=== PATIENT | female | born 1960 | race Caucasian/White ===

== ENCOUNTER 2019-03-14 16:10 | Outpatient (RCR) | payer MEDICARE, MEDICAID, SELFPAY | END 2019-03-26 00:01 | LOC: LAB 16:10 | PROVIDERS: Family Provider Family Medicine; Visit Provider Internal Medicine Nephrology | DX: N18.3 Chronic kidney disease, stage 3 (moderate) (principal); N39.0 Urinary tract infection, site not specified; N13.30 Unspecified hydronephrosis; R19.7 Diarrhea, unspecified | CPT/HCPCS: 81001; 82570; 87086 ×2; 87106; 87493 ==

== ENCOUNTER 2019-04-16 13:55 | Outpatient (RCR) | payer MEDICARE, MEDICAID, SELFPAY ==
[2019-04-16 12:01] LABS: Blood Urine 3+ (Negative); Glucose Urine UA Norm (Normal); Ketones Urine Negative (Negative); Protein Urine 1+ (Negative); Urine Appearance Cloudy (CLEAR); Urine Color Yellow (Yellow); pH Urine 5 (5-7)
[2019-04-16 12:02] LABS: Add Urine Microscopic? YES; Bilirubin Urine Neg (NEGATIVE); Leukocyte Esterase Urine 1+ (Negative); Nitrate Urine Negative (Negative); Urobilinogen Urine Norm (Negative); WBC Urine TOO NUMEROUS TO CNT /hpf (0-5)
[2019-04-16 12:03] LABS: Add Urine Culture? Yes; Bacteria Urine 3+; RBC Urine 25-40 /hpf (0-2); Squamous Epithelial Cell Urine 0-4 (0-5)
--- NOTE | 2019-04-16 14:21 | US_ITS ---
WS: [id number] ULTRASOUND RENAL TECHNIQUE: Ultrasound examination of both kidneys. CLINICAL INFORMATION: Hydronephrosis COMPARISON: None. FINDINGS: RIGHT: Moderate hydronephrosis Echogenicity: Normal. Hydronephrosis: Moderate Perinephric fluid: None. Right kidney measures: 10.2 cm x 4.9 cm x 5.2 cm. LEFT: Moderate hydronephrosis Echogenicity: Normal. Hydronephrosis: Moderate Perinephric fluid: None. Left kidney measures: 12.3 cm x 5.6 cm x 5.6 cm. Normal visualized aorta. Morales catheter US/US renal BI* [id number] IMPRESSION: 1. Moderate bilateral hydronephrosis with bilateral proximal hydroureter. 2. Morales catheter.
== END 2019-04-26 23:59 | disposition home or self-care (01) ==
LOC: RAD 13:55
PROVIDERS: Family Provider Family Medicine; PCP Family Medicine; Visit Provider Urology
DX: N13.30 Unspecified hydronephrosis (principal); N30.20 Other chronic cystitis without hematuria; N32.89 Other specified disorders of bladder
CPT/HCPCS: 76770; 81003; 87077; 87086; 87186

== ENCOUNTER 2019-05-31 12:02 | Observation (INO) | payer MEDICARE, MEDICAID, SELFPAY ==
[2019-05-31 12:03] VITALS: BMI 25.0
--- NOTE | 2019-05-31 12:04 | ED_ITS ---
Entered by Karina Wood, acting as scribe for Tova Parsons DO HPI - General Adult General: Chief complaint: Urogenital-Female Stated complaint: UTI RESISTANT TO ANTIBIOTIC Time Seen by Provider: 05/31/19 12:14 Source: patient and RN notes reviewed Mode of arrival: EMS Limitations: physical limitation (bialteral AKA) History of Present Illness: HPI narrative: 58 yo female presents to ED with complaints of a bladder infection. She states she has burning with urination and bladder spasms with nausea. She said she has been running an elevated tempera ture. She denies back pain. She has been having these symptoms for 2 weeks and has received antibiotic treatment with no relief of her symptoms. MD complaint: burning with urination Onset (ago): week(s) (2) Location: abdomen (suprapubic) Radiation: non-radiation Severity: moderate Quality: burning Pain Consistency: constant Relieving factors: none Exacerbating factors: other (urinating) Associated symptoms: Reports nausea; Deny chest pain, dyspnea, headache(s) or rash Treatments prior to arrival: other (antibiotics) Review of Systems General: Reports: 10 or more systems reviewed and unremarkable except in HPI and below Const: Denies: chills or fatigue ENMT: Denies: throat pain Card: Denies: chest pain or swelling of feet/ankles Resp: Denies: shortness of breath or productive cough GI: Reports: nausea Musc: Denies: back pain or extremity swelling Skin/Breast: Denies: rash Neuro: Denies: headache, numbness in extremities or weakness in extremities [facility] ED PFSH: Medical History Bilateral hydronephrosis Bladder wall thickening Chronic cystitis Surgical History Status post bilateral above knee amputation Family History Family/Other Psychiatric illness CAD (coronary artery disease) Diabetes Cancer Stroke Social History Smoking and tobacco status: current every day smoker Alcohol intake: never Marital status: Current occupational status: disabled Physical Exam Const: COMMON NORMALS: no apparent distress and oriented x3 GENERAL APPEARANCE: cooperative; not in distress HENMT: COMMON NORMALS: normocephalic HEAD & SCALP: normal to inspection and normocephalic MOUTH: oral and palatal mucosa normal and lip normal THROAT: posterior oropharynx normal and tonsils normal Neck/C-Spine: COMMON NORMALS: full ROM, no lymphadenopathy, supple and no meningeal signs GENERAL: Yes normal visual inspection and Yes trachea midline Chest: COMMONS NORMALS: inspection of chest normal Resp: COMMON NORMALS: normal respiratory effort and clear to auscultation bilaterally EFFORT & INSPECTION: Yes able to speak in complete sentences and No respiratory distress AUSCULTATION: clear to auscultation bilaterally, no rales, no rhonchi and no wheezes Cardio: COMMON NORMALS: regular rate, regular rhythm, S1 normal heart sound, S2 normal heart sound and no murmurs RATE: regular rate RHYTHM: regular rhythm HEART SOUNDS: S1 normal and S2 normal PERIPHERAL PULSES: radial pulses present and dorsalis pedis pulses present GI: COMMON NORMALS: normal to inspection, nondistended, normoactive bowel sounds and soft to palpation INSPECTION: Yes normal to inspection AUSCULTATION: Yes normoactive bowel sounds PALPATION: Yes soft and Yes tender (suprapubic) RECTAL EXAM: deferred : COMMON NORMALS: Yes no CVA tenderness BLADDER/KIDNEY EXAM: Yes no CVA tenderness Back/Pelvis: COMMON NORMALS: no CVA tenderness Extremity: COMMON NORMALS: normal to inspection, full ROM, normal capillary refill, no calf tenderness and no pedal edema OTHER: bilateral AKA Neuro: COMMON NORMALS: oriented x3, CN's II-XII intact bilaterally, moves all extremities and no focal motor deficits MENINGEAL SIGNS: Yes no meningeal signs Skin: COMMON NORMALS: no rashes or lesions noted GENERAL SKIN EXAM: no r ashes or lesions noted Course Vital Signs: Vital signs: Vital Signs Temperature 98.4 F 05/31/19 12:08 Pulse Rate 76 05/31/19 12:08 Respiratory Rate 20 H 05/31/19 12:08 Blood Pressure 105/63 05/31/19 12:08 Pulse Oximetry 96 05/31/19 12:08 MDM - General Adult MDM Narrative: Medical decision making narrative: 1230pm: pt has leatha glabr lucía which is resistant to fluconazole. pts only symptoms are burning when she urinates, occasional nausea. no fever or chills or back pain, Pt likely has vaginitis and Dr Hill states she rec miconazole vaginal suppositories and good perineal hygeine since the pt is not septic. I will check basic labs, her vss. 1255: pt has hg 8 that has been slowly going down, it will need further eval by her pcp. 1330: pt has acute kidney injury with uti, Dr Mosher states he will admit to obs, her BUN 50 and 8 in Jan. I am giving her IV fluids Lab Data: Attestation: I reviewed the patient's lab results. Labs: Lab Results 05/31/19 05/31/19 05/31/19 Range/Units 12:39 12:46 12:46 WBC 16.4 H (4.0-10.0) 10^3/ uL RBC 3.55 L (4.1-5.3) 10^6/u L Hgb 8.0 L (11.5-15.3) g/dL Hct 29.2 L (37.0-47.0) % MCV 82.3 (81-99) fL MCH 22.5 L (28.0-34.0) pg MCHC 27.4 L (30.0-36.0) g/dL RDW 20.4 H (12.1-15.1) % Plt Count 560 H (130-400) 10^3/c mm MPV 10.0 (7.4-10.4) fL Neut % (Auto) 70.9 % Lymph % (Auto) 9.9 % Sully % (Auto) 13.0 % Eos % (Auto) 3.4 % Baso % (Auto) 0.5 % Neut # (Auto) 11.6 H (1.8-7.7) 10^3/u L Lymph # (Auto) 1.6 (0.8-4.8) 10^3/u L Sully # (Auto) 2.1 H (0.2-0.9) 10^3/u L Eos # (Auto) 0.6 (0.0-0.8) 10^3/u L Baso # (Auto) 0.1 (0.0-0.1) 10^3/u L Nucleated RBC % (a uto) 0.2 % Nucleated RBCs # 0.0 /100WBC Sodium 135 L (136-145) mmol/L Potassium 5.3 H (3.5-5.1) mmol/L Chloride 107 (98-107) mmol/L Carbon Dioxide 13 L (22-29) mmol/L Anion Gap 20.3 H (5-19) BUN 50 H (6-20) mg/dL Creatinine 1.2 H (0.5-0.9) mg/dL GFR Calculation 46.3 L (90-130) mL/min Glucose 171 H (65-115) mg/dL Calcium 9.1 (8.5-10.5) mg/dL Total Bilirubin 0.2 (0.15-1.2) mg/dL AST 25 (0-32) U/L ALT 25 (0-33) U/L Alkaline Phosphata se 196 H (35-105) IU/L Total Protein 7.1 (6.6-8.7) g/dL Albumin 2.6 L (3.5-5.2) g/dL Globulin 4.5 (1.3-4.6) g/dL Urine Color Yellow (Yellow) Urine Appearance Cloudy (CLEAR) Urine pH 5 (5-7) Ur Specific Gravit y 1.010 (1.005-1.030) Urine Protein 1+ H (Negative) Urine Glucose (UA) Norm (Normal) Urine Ketones Negative (Negative) Urine Blood 3+ H (Negative) Urine Nitrate Negative (Negative) Urine Bilirubin Neg (NEGATIVE) Urine Urobilinogen Norm (Negative) mg/dL Ur Leukocyte Trina ase 2+ H (Negative) Urine RBC 80-100 H (0-2) /hpf Urine WBC Too numerous to c nt H (0-5) /hpf Ur Squamous Epith Cells 5-10 H (0-5) Urine Bacteria 2+ H (NONE) Urine Mucus Trace Discharge Plan Discharge Patient Disposition: Placed in Observation Clinical Impression: Candidiasis of vagina, Acute kidney injury Urinary tract infection Qualifiers: Urinary tract infection type: acute cystitis Anemia Qualifiers: Iron deficiency anemia type: unspecified iron deficiency Condition: Stable Referrals: Bryan Adams [Primary Care Provider] - Coding Level of Care Code ED Quality Assurance Monitor for g Fwd Exam Comprehensive The documentation recorded by the scribe, Wood,Karina R, accurately reflects the service I personally performed and the decisions made by me, Tova Parsons, DO
[2019-05-31 12:08] VITALS: BP 105/63; PULSE 76; RESP 20; TEMP 36.9; O2SAT 96
[2019-05-31 12:53] LABS: Basophils # 0.1 10^3/uL (0.0-0.1); Basophils % 0.5 %; Eosinophils # 0.6 10^3/uL (0.0-0.8); Eosinophils % 3.4 %; Hematocrit 29.2 % (37.0-47.0); Lymphocytes # 1.6 10^3/uL (0.8-4.8); Lymphocytes % 9.9 %; Mean Corpuscular HGB Conc 27.4 g/dL (30.0-36.0); Mean Corpuscular Hemoglobin 22.5 pg (28.0-34.0); Mean Corpuscular Volume 82.3 fL (81-99); Monocytes # 2.1 10^3/uL (0.2-0.9); Neutrophils # 11.6 10^3/uL (1.8-7.7); Neutrophils % 70.9 %; Nucleated Red Blood Cells % 0.2 %; Platelet Count 560 10^3/cmm (130-400); Red Blood Count 3.55 10^6/uL (4.1-5.3); Red Cell Distribution Width 20.4 % (12.1-15.1); White Blood Count 16.4 10^3/uL (4.0-10.0)
[2019-05-31 12:58] LABS: Bilirubin Urine Neg (NEGATIVE); Blood Urine 3+ (Negative); Glucose Urine UA Norm (Normal); Ketones Urine Negative (Negative); Leukocyte Esterase Urine 2+ (Negative); Nitrate Urine Negative (Negative); Protein Urine 1+ (Negative); Urine Appearance Cloudy (CLEAR); Urine Color Yellow (Yellow); Urobilinogen Urine Norm (Negative); pH Urine 5 (5-7)
[2019-05-31 12:59] LABS: Add Urine Microscopic? YES
[2019-05-31 13:12] LABS: Alanine Aminotransferase 25 U/L (0-33); Albumin Level 2.6 g/dL (3.5-5.2); Alkaline Phosphatase 196 IU/L (35-105); Anion Gap 20.3 (5-19); Aspartate Amino Transferase 25 U/L (0-32); Blood Urea Nitrogen 50 mg/dL (6-20); Calcium 9.1 mg/dL (8.5-10.5); Carbon Dioxide 13 mmol/L (22-29); Chloride 107 mmol/L (98-107); Globulin 4.5 g/dL (1.3-4.6); Glomerular Filtration Rate 46.3 mL/min (90-130); Glucose 171 mg/dL (65-115); Potassium 5.3 mmol/L (3.5-5.1); Sodium 135 mmol/L (136-145); Total Bilirubin 0.2 mg/dL (0.15-1.2); Total Protein 7.1 g/dL (6.6-8.7)
[2019-05-31 13:19] LABS: Bacteria Urine 2+; Mucus Urine TRACE; RBC Urine 80-100 /hpf (0-2); WBC Urine TOO NUMEROUS TO CNT /hpf (0-5)
[2019-05-31 13:20] LABS: Add Urine Culture? Yes
[2019-05-31] MEDS: sodium chloride 0.9% 1,000 ML 999 ML IV (14:10)
[2019-05-31 17:26] VITALS: BP 143/63; PULSE 78; RESP 16; O2SAT 97
--- NOTE | 2019-05-31 18:02 | P.HP_ITS ---
Providers/Chief Complaint Admitting Physician: Jose Mosher Primary Care Provider: Bryan Adams Chief Complaint: UTI RESISTANT TO ANTIBIOTIC History of Present Illness Leelee Guidry is a 58 year old female with recurrent urinary tract infections with sent over for evaluation in ER due to positive urine cultures with 50- 99,000 for yeast noted on 05/27 without identification or sensitivity. Prior to that received treatment with cefepime 1 g twice daily for 5 days, extended x3 days for Klebsiella UTI. She reports rash, burning, itching in her vaginal area. She is not sure how long this has been going on. Review of Systems Const: Denies: fever, chills, body aches or malaise Eyes: Denies: change in vision or eye redness ENMT: Denies: throat pain, oral sores/lesions or ear pain Card: Denies: chest pain, edema, pre-syncope or shortness of breath on exertion Resp: Denies: shortness of breath, productive cough, change in phlegm color or coughing up blood GI: Denies: abdominal pain, nausea, vomiting, diarrhea, constipation, blood in stool or black tarry stool : Reports: painful urination and genital itching; Denies: flank pain, urinary frequency or blood in urine Musc: Denies: back pain, joint swelling or redness Skin/Breast: Denies: rash, sores or new lesion Neuro: Denies: headache, numbness in extremities, weakness in extremities, d izziness, confusion or seizure-like activity Endo: Denies: excessive urination or excessive thirst Josh/Lymph: Denies: easy bleeding or purpura All/Imm: Denies: hives, throat swelling or tongue swelling Medications/Allergies Allergies Allergy/AdvReac Type Severity Reaction Status Date / Time codeine Allergy NA Verified 05/31/19 12:11 meperidine Allergy NA Verified 05/31/19 12:11 PFSH Acute PFSH: Medical History ASHD (arteriosclerotic heart disease) Bilateral hydronephrosis Bladder wall thickening Carotid stenosis, bilateral Chronic cystitis COPD (chronic obstructive pulmonary disease) Diabetes Essential hypertension Hyperlipidemia PAD (peripheral artery disease) Surgical History Status post bilateral above knee amputation Family History Family/Other Psychiatric illness CAD (coronary artery disease) Diabetes Cancer Stroke Social History Smoking and tobacco status: current every day smoker cigarettes Packs smoked per day: 0.5 Alcohol intake: never Substance/Drug Use: never Housing: Long Term Marital status: / Current occupational status: disabled Vitals/I&O/Wt Last Vital Signs Temp 98.4 F 05/31/19 12:08 Pulse 78 05/31/19 17:26 Resp 16 05/31/19 17:26 BP 143/63 05/31/19 17:26 Pulse Ox 97 05/31/19 17:26 05/31/19 05/31/19 05/31/19 06:59 14:59 22:59 Intake Total 1000 / 1000 Balance 1000 / 1000 Weight last 48 hrs Weight 68.039 kg Physical Exam Const: COMMON NORMALS: no apparent distress and oriented x3 HENMT: COMMON NORMALS: oropharynx normal Neck/C-Spine: COMMON NORMALS: no JVD Resp: COMMON NORMALS: normal respiratory effort and clear to auscultation bilaterally AUSCULTATION: clear to auscultation bilaterally Cardio: COMMON NORMALS: no JVD, regular rhythm, S1 normal heart sound, S2 no rmal heart sound and no murmurs RHYTHM: regular rhythm HEART SOUNDS: S1 normal and S2 normal GI: COMMON NORMALS: normal to inspection, nondistended, normoactive bowel sounds, soft to palpation and non-tender PALPATION: Yes soft Extremity: COMMON NORMALS: no joint enlargement OTHER: Bilateral AKA Neuro: COMMON NORMALS: oriented x3 and moves all extremities Skin: COMMON NORMALS: no wounds Data : 05/31/19 12:46 05/31/19 12:46 Micro: Microbiology 05/31/19 12:40 Blood Culture - Preliminary Blood SPECIMEN COLLECTED 05/31/19 12:46 Blood Culture - Preliminary Blood SPECIMEN COLLECTED A&P Assessment and plan (1) Candidiasis of vagina: With recent urinary tract infection with Klebsiella, status post treatment with cefepime 5-day course + 3 day extension. Subsequently growing 50-99,000 yeast in urine without ID or sensitivity. Was referred to emergency department due to persistent symptoms of burning with urination. She reports symptoms of genital rash, burning, itching consistent with vulvovaginal candidiasis, at this time without symptoms of sepsis would suspect that the urinary culture may be contaminated secondary to this condition. For now we will give her trial of miconazole, placed in observation monitor for development of any symptoms of progressive infection, sepsis. If symptoms persistent despite this treatment, could then have consideration for treatment with oral fluconazole depending on urine culture ID and sensitivity. Depending on her clinical course consider outpatient follow-up with infectious disease specialist regarding recurrent urinary tract infections and C. difficile. Status: Acute Code(s): B37.3 - Candidiasis of vulva and vagina (2) Acute kidney injury: Creatinine with mild elevation up to 1.2. Received fluid challenge in the ER. Recheck renal function in the morning. She reports does not usually take NSAIDs. Monitor for any worsening. Monitor potassium level. Status: Acute Code(s): N17.9 - Acute kidney failure, unspecified Additional A&P Information Hyperkalemia: Mild hyperkalemia at 5.3. Usually potassium is normal. Will request for low potassium diet. Recurrent UTI: Continue chronic medications, continue follow-up with urology. Chronic diarrhea: Reports C. difficile, for which was previously on vancomycin, in the past has seen gastroenterology due to chronic diarrhea, although did not receive definitive answers. Does take Creon due to pancreatic insufficiency. Will maintain on isolation at this time. Has not seen gastroenterology in the last several years. Consider outpatient follow-up. DM 2 HTN CAD COPD CAD History of CVA History of depression GERD Hypothyroidism Attestations Medical Necessity Statement*: Place in observation. Coding Level of Care Code Acute [employer] for [facility] Fwd Diagnoses Candidiasis of vagina B37.3 Acute kidney injury N17.9
[2019-05-31 20:00] VITALS: BP 113/59; PULSE 77; RESP 17; TEMP 36.6; O2SAT 95
[2019-05-31] MEDS: mirtazapine 15 mg Tablet PO (21:04)
[2019-05-31] MEDS: atorvastatin 40 mg Tablet 20 MG PO (21:04)
[2019-05-31] MEDS: sertraline 100 mg Tablet PO (21:04)
[2019-05-31] MEDS: cholecalciferol (vitamin D3) 1,000 unit Tablet 1000 UNIT PO (21:04)
[2019-05-31] MEDS: HYDROcodone-acetaminophen 5-325 mg Tablet 1 TAB PO (21:04)
[2019-05-31] MEDS: heparin 5,000 unit/mL INJ 1 mL 5000 UNIT SUBCUT (21:05)
[2019-05-31] MEDS: miconazole 2% vaginal cream 45 gm 1 APPFUL VAGINAL (21:06)
[2019-06-01] VITALS: BP 110/62; PULSE 80; RESP 18; TEMP 36.9; O2SAT 96
[2019-06-01 04:00] VITALS: BP 108/72; PULSE 78; RESP 18; TEMP 36.8; O2SAT 97
[2019-06-01 05:26] LABS: Basophils # 0.1 10^3/uL (0.0-0.1); Basophils % 0.7 %; Eosinophils # 0.7 10^3/uL (0.0-0.8); Eosinophils % 4.4 %; Hematocrit 28.6 % (37.0-47.0); Hemoglobin 7.9 g/dL (11.5-15.3); Lymphocytes # 1.8 10^3/uL (0.8-4.8); Lymphocytes % 11.8 %; Mean Corpuscular HGB Conc 27.6 g/dL (30.0-36.0); Mean Corpuscular Hemoglobin 22.3 pg (28.0-34.0); Mean Corpuscular Volume 80.8 fL (81-99); Monocytes # 2.2 10^3/uL (0.2-0.9); Monocytes % 14.3 %; Neutrophils # 10.2 10^3/uL (1.8-7.7); Neutrophils % 66.6 %; Nucleated Red Blood Cells % 0.2 %; Platelet Count 534 10^3/cmm (130-400); Red Blood Count 3.54 10^6/uL (4.1-5.3); Red Cell Distribution Width 19.9 % (12.1-15.1); White Blood Count 15.3 10^3/uL (4.0-10.0)
[2019-06-01 05:56] LABS: Blood Urea Nitrogen 43 mg/dL (6-20); Calcium 8.9 mg/dL (8.5-10.5); Carbon Dioxide 16 mmol/L (22-29); Chloride 114 mmol/L (98-107); Glomerular Filtration Rate 51.2 mL/min (90-130); Glucose 92 mg/dL (65-115); Osmolality Calculated 289 mOsm/kg (285-295); Sodium 141 mmol/L (136-145)
[2019-06-01] MEDS: pantoprazole DR 40 mg Tablet PO (06:21)
[2019-06-01] MEDS: HYDROcodone-acetaminophen 5-325 mg Tablet 1 TAB PO (06:21)
[2019-06-01 06:23] LABS: Glucose Point of Care 102 mg/dL (70-110)
[2019-06-01 07:38] VITALS: BP 110/68; PULSE 66; RESP 20; TEMP 36.7; O2SAT 97
[2019-06-01] MEDS: metoprolol succinate ER (24 HR) 25 mg Tablet PO (08:48)
[2019-06-01] MEDS: aspirin 81 mg EC Tablet PO (08:48)
[2019-06-01] MEDS: levothyroxine 50 mcg Tablet 75 MCG PO (08:48)
[2019-06-01] MEDS: clopidogrel 75 mg Tablet PO (08:48)
[2019-06-01] MEDS: pregabalin 100 mg Capsule 200 MG PO (08:48)
[2019-06-01] MEDS: nitrofurantoin SR (BID) 100 mg Capsule PO (08:48)
[2019-06-01] MEDS: isosorbide mononitrate ER 30 mg Tablet PO (08:48)
[2019-06-01] MEDS: tamsulosin 0.4 mg Capsule PO (08:48)
[2019-06-01] MEDS: ARIPiprazole 10 mg Tablet 5 MG PO (08:49)
[2019-06-01] MEDS: buPROPion SR (12 HR) 100 mg Tablet PO (08:49)
[2019-06-01 10:23] VITALS: PULSE 83; RESP 16; O2SAT 96
[2019-06-01 11:00] LABS: Glucose Point of Care 147 mg/dL (70-110)
[2019-06-01 11:30] VITALS: BP 118/64; PULSE 64; RESP 22; TEMP 37.2; O2SAT 96
--- NOTE | 2019-06-01 13:16 | PC.CHAP ---
Pastoral Care Encounter/Spiritual Assessment Type of Contact [] Declined real estate account executive visit [] Patient/Family/Request visit [] Outpatient visit [] Follow-up visit [] Physician referral [] Code/Alert [X] Routine visit [] Staff referral [] Actively dying [] Patient sleeping [] Family support [] [] Out of room [] Palliative care [] [] Receiving care in room [] Pre-surgical visit [] Trauma [] Long length of stay [] ICU visit [] Other: Relational/Emotional Strength [] Patient feels connected with others/family/visitors/staff [] Distress [] Loneliness/isolation [] Abandonment Spirituality of Patient [] Person of Stacia [] Attends Jewish of their Stacia [] Believes in Prayer [] Reads Bible or Methodist materials [] There are Spiritual issues to be addressed Electronics Research Engineer Interventions [] Prayer [] Active listening [] Non-anxious presence [] Spiritual/emotional support [] Crisis/trauma care [] Spiritual counseling [] Bereavement support [] Provided bereavement packet [] Provided Bible/devotional materials [] Provided toy/stuffed animal, coloring book to patient or family member [] Provided Communion [] Anointing/[place] [] Salvation [] Completed spiritual assessment [] Other: Impact on Illness or Injury [] Angry [] Fearful [] Anxious [] Often cries [] Exhaustion [] Unable to work [] Unable to attend spiritism [] Unable to walk/stand [] Unable to read [] Unable to drive [] Unable to eat/drink [] Unable to sleep [] Unable to be with family [] Patient intubated [] Other: Summary PRECAUTIONS Time spent with patient
--- NOTE | 2019-06-01 14:03 | PM.DCS ---
Discharge Providers Date of Admission: 05/31/19 13:34 Date of Discharge: June 01, 2019 Attending Provider at Admission: Jose Mosher Attending Provider at Discharge: Jose Mosher Primary Care Provider: Bryan Adams Diagnoses at Discharge Discharge Diagnosis (1) Candidiasis of vagina: Status: Acute (2) Acute kidney injury: Status: Acute Reason for Visit Reason for Visit: Reason For Visit: UTI RESISTANT TO ANTIBIOTIC Hospital Course Hospital Course: 58-year-old lady with history of diabetes, hypertension, peripheral vascular disease, status post bilateral AKA, recurrent urinary tract infections, previously chronic indwelling Morales catheter, but recently discontinued by urology was referred for assessment due to persistent symptoms of dysuria, despite undergoing a day course of treatment for Klebsiella UTI diagnosed on 05/23, subsequently with 50-99,000 CFU yeast growing on culture with reported concern for resistance to Diflucan. With history of chronic cystitis, on review of her prior urine cultures she has had variable numbers of Aida growing, including Aida glabrata, although without any prior sensitivities. She follows with urology and has had prior cystoscopy, although with finding of inflammation, biopsy has not been obtained to date. On evaluation in ER she was found with leukocytosis which appears to be chronic for her, afebrile, without tachycardia, or other signs of sepsis. With numerous WBC and RBC in urine. With findings of vulvovaginal candidiasis on exam. She was kept for observation due to concern of worsening renal function with previously normal baseline, as well as mild hyperkalemia potassium 5.3. Her creatinine has remained stable with mild improvement today to 1.1. Hyperkalemia resolved after placement on low potassium diet which will need to be continued after discharge. Please follow-up potassium and renal function in several days. She has done well overnight, and today apart from persistent genital burning and itching denies other complaints. She does not appear toxic, and there has not been signs of developing sepsis. Discussed with her in detail regarding the findings, culture results in light of her prior history and urological work-up. At this time the concern for invasive candidal infection is low, with findings on culture very likely appearing either secondary to genital infection or possibly in combination with colonization. We discussed with her treatment of this condition currently with ongoing follow-up and reevaluation for any worsening in her condition or development of further symptoms of invasive infection, which could be perhaps confirmed by obtaining biopsy looking for fungal elements, in which case she may need at that point additional treatment. With concern for Diflucan resistance, with caspofungin shortage in the hospital this treatment may be difficult to obtain at this facility, although it is not clear when caspofungin may be available again. Please follow-up closely on her condition. She will have close follow-up with urology as well. Please follow renal function. With history of C. difficile infection, with chronic diarrhea, consider gastroenterology, and with recurrent candidal infection in the urine, should problems persist consider referral for infectious disease assessment. 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 Physical Exam Const: COMMON NORMALS: no apparent distress and oriented x3 HENMT: COMMON NORMALS: oropharynx normal Neck/C-Spine: COMMON NORMALS: no JVD Resp: COMMON NORMALS: normal respiratory effort and clear to auscultation bilaterally AUSCULTATION: clear to auscultation bilaterally Cardio: COMMON NORMALS: no JVD, regular rhythm, S1 normal heart sound, S2 normal heart sound and no murmurs RHYTHM: regular rhythm HEART SOUNDS: S1 normal and S2 normal GI: COMMON NORMALS: normal to inspection, nondistended, normoactive bowel sounds, soft to palpation and non-tender PALPATION: Yes soft : EXTERNAL FEMALE EXAM: Yes erythema (yeast odor) Extremity: COMMON NORMALS: no joint enlargement OTHER: Bilateral AKA Neuro: COMMON NORMALS: oriented x3 and moves all extremities Skin: COMMON NORMALS: no wounds Discharge Data Data Completed and Pending: Pending at discharge Category Date Time Status Basic Metabolic P saleem AM LABS Lab 06/02/19 04:00 Ordered Basic Metabolic P saleem AM LABS Lab 06/03/19 04:00 Ordered Blood Culture Sta t Lab 05/31/19 12:40 Results Complete Blood Co unt w/Auto AM LABS Lab 06/02/19 04:00 Ordered Complete Blood Co unt w/Auto AM LABS Lab 06/03/19 04:00 Ordered Urine Culture Sta t Lab 05/31/19 12:39 Results Labs from last 24 hours 06/01/19 06/01/19 06/01/19 10:50 06:18 05:14 WBC RBC Hgb Hct MCV MCH MCHC RDW Plt Count MPV Neut % (Auto) Lymph % (Auto) [place] % (Auto) Eos % (Auto) Baso % (Auto) Neut # (Auto) Lymph # (Auto) [place] # (Auto) Eos # (Auto) Baso # (Auto) Nucleated RBC % (a uto) Nucleated RBCs # Sodium 141 Potassium 5.0 Chloride 114 H Carbon Dioxide 16 L Anion Gap 16.0 BUN 43 H Creatinine 1.1 H GFR Calculation 51.2 L Glucose 92 POC Glucose 147 102 Calculated Osmolal ity 289 Calcium 8.9 06/01/19 05:14 WBC 15.3 H RBC 3.54 L Hgb 7.9 L Hct 28.6 L MCV 80.8 L MCH 22.3 L MCHC 27.6 L RDW 19.9 H Plt Count 534 H MPV 10.0 Neut % (Auto) 66.6 Lymph % (Auto) 11.8 [place] % (Auto) 14.3 Eos % (Auto) 4.4 Baso % (Auto) 0.7 Neut # (Auto) 10.2 H Lymph # (Auto) 1.8 [place] # (Auto) 2.2 H Eos # (Auto) 0.7 Baso # (Auto) 0.1 Nucleated RBC % (a uto) 0.2 Nucleated RBCs # 0.0 Sodium Potassium Chloride Carbon Dioxide Anion Gap BUN Creatinine GFR Calculation Glucose POC Glucose Calculated Osmolal ity Calcium Vitals: Last Vital Signs Temp 99.0 F 06/01/19 11:30 Pulse 64 06/01/19 11:30 Resp 22 H 06/01/19 11:30 BP 118/64 06/01/19 11:30 Pulse Ox 96 06/01/19 11:30 Discharge Plan Discharge Patient Disposition: Home, Self-Care Condition: Stable Prescriptions: New Miconazole 7 100 mg suppository 100 mg VAGINAL ONCE Qty: 7 RF: 0 miconazole nitrate 2 % Cream 1 appful vaginal BEDTIME 6 Days Qty: 45 RF: 0 clotrimazole 1 % cream 1 applic TOPICAL BID 14 Days RF: 0 Continued nitrofurantoin monohyd/m-cryst [Macrobid] 100 mg capsule 100 mg PO BID RF: 0 simvastatin 40 mg tablet 40 mg PO BEDTIME RF: 0 ascorbic acid (vitamin C) 1,000 mg tablet 1,000 mg PO TID RF: 0 isosorbide mononitrate 30 mg tablet extended release 24 hr 30 mg PO DAILY RF: 0 metoprolol succinate 25 mg tablet extended release 24 hr 25 mg PO DAILY RF: 0 pregabalin 200 mg capsule 200 mg PO BID RF: 0 methenamine hippurate 1 gram tablet 1 gm PO BID RF: 0 tamsulosin 0.4 mg capsule 0.4 mg PO BID RF: 0 mirtazapine 7.5 mg tablet 15 mg PO BEDTIME RF: 0 vancomycin [Vancocin] 125 mg capsule 125 mg PO QID RF: 0 aspirin [Aspir-81] 81 mg tablet,delayed release (DR/EC) 81 mg PO DAILY RF: 0 Creon 3,000-9,500- 15,000 unit capsule,delayed release(DR/EC) 1 cap PO TID RF: 0 aripiprazole 5 mg tablet 5 mg PO DAILY RF: 0 albuterol sulfate 90 mcg/actuation HFA aerosol inhaler 2 puff INHALATION Q6H PRN (Reason: Shortness Of Breath) RF: 0 sertraline [Zoloft] 100 mg tablet 100 mg PO Q24H RF: 0 Novolog Flexpen U-100 Insulin 100 unit/mL (3 mL) insulin pen 5 unit SUBCUT TID RF: 0 levothyroxine 75 mcg capsule 75 mcg PO DAILY RF: 0 cholecalciferol (vitamin D3) 1,000 unit capsule 1,000 unit PO Q7D RF: 0 clopidogrel 75 mg tablet 75 mg PO DAILY RF: 0 Lantus U-100 Insulin 100 unit/mL solution 25 unit SUBCUT BEDTIME RF: 0 ondansetron HCl [Zofran] 4 mg tablet 4 mg PO Q8H PRN (Reason: Nausea) RF: 0 hydrocodone-acetaminophen [[place]] 5-325 mg tablet 1 tab PO Q6H PRN (Reason: oain) RF: 0 bupropion HCl [Wellbutrin SR] 100 mg tablet sustained-release 12 hr 100 mg PO DAILY RF: 0 pantoprazole 40 mg tablet,delayed release (DR/EC) 40 mg PO QAM RF: 0 Discharge Orders: Discharge Order (Routine); Ordered 06/01/19 Ordered By: Jose Mosher Other Ambulatory Orders: Basic Metabolic Panel (Routine) Timeframe: 3 Days Facility: [facility] - Location: Lab - Main Lab Ordered By: Jose Mosher Referrals: [facility] [Outside] Pj Poon MD [Physician] - 7-10 days (Please call Monday to set up a follow up appointment.) Bryan Adams [Primary Care Provider] - 4-7 days (Please call Monday to set up a follow up appointment.) Discharge Activity: Resume usual activity Activity Restrictions/Additional Instructions: Please maintain low potassium, diabetic diet. Complete 7-day course of miconazole for vulvovaginal candidiasis and clotrimazole externally for erythema. Please maintain close follow-up with your primary care provider, and follow-up with your urologist Dr. Poon to monitor for any symptoms of development of invasive candidiasis which may need systemic treatment. Please discuss with your primary care provider and urologist regarding follow-up of the final results of yeast culture obtained at the shelter to see if it may be see what agents this may be sensitive to if treatment were needed in the future. Please discuss with your primary care provider regarding consideration of evaluation by gastroenterology given chronic diarrhea and history of C. difficile colitis. Discharge Attestations Time Spent in Discharge Care*: greater than 30 min Quality Metrics Clinical Quality Measures During this hospital stay, did patient experience: None Coding Level of Care Code Acute Gutter Installer for g Keirad Diagnoses Candidiasis of vagina B37.3 Acute kidney injury N17.9
[2019-06-01 17:38] VITALS: BP 118/64; PULSE 64; RESP 22; TEMP 37.2; O2SAT 96
== END 2019-06-01 16:22 | disposition home or self-care (01) ==
LOC: ER 13:41 → MEDSURG 17:15
PROVIDERS: Admitting Provider Internal Medicine; Emergency Provider Emergency Medicine; Family Provider Family Medicine; PCP Family Medicine; Visit Provider Internal Medicine
DX: B37.3 Candidiasis of vulva and vagina (principal); N17.9 Acute kidney failure, unspecified; E11.9 Type 2 diabetes mellitus without complications; I10 Essential (primary) hypertension; I25.10 Atherosclerotic heart disease of native coronary artery without angina pectoris; J44.9 Chronic obstructive pulmonary disease, unspecified; Z86.73 Personal history of transient ischemic attack (TIA), and cerebral infarction without residual deficits; F32.9 Major depressive disorder, single episode, unspecified; E03.9 Hypothyroidism, unspecified; Z82.49 Family history of ischemic heart disease and other diseases of the circulatory system; Z83.3 Family history of diabetes mellitus; F17.210 Nicotine dependence, cigarettes, uncomplicated
CPT/HCPCS: 12345; 36415; 36416; 51701; 80048; 80053; 81001; 82962; 85025; 87040; 87086; 96360; 96361; 96372; 99282; 99285; G0378; J1644; J7030

== ENCOUNTER 2019-06-08 16:39 | Inpatient (IN) | payer MEDICARE, MEDICAID, SELFPAY ==
[2019-06-08 16:42] VITALS: BP 131/70; PULSE 90; RESP 18; TEMP 38.1; O2SAT 97; BMI 26.1
--- NOTE | 2019-06-08 16:48 | ED_ITS ---
Entered by Pattie Leal, acting as scribe for Rick Martino DO HPI - Pediatric Fever General: Chief Complaint: Fever Stated Complaint: FEVER Time Seen by Provider: 06/08/19 16:48 History of Present Illness: Associated symtoms: Deny abdominal pain, diarrhea, dyspnea, dysuria, ear or mastoid pain, malaise, nasal congestion or vomiting PFSH ED PFSH: Surgical History Status post bilateral above knee amputation Social History Smoking and tobacco status: current every day smoker cigarettes Packs smoked per day: 0.5 Alcohol intake: never Housing: Group Home Marital status: / Current occupational status: disabled Pediatric Exam Const: Constitutional General: cooperative, comfortable and no acute distress HENMT: Head: normocephalic and atraumatic Ears: hearing grossly normal bilaterally, external ears normal, TM's normal bilaterally and EAC's normal Nose: nasal mucous membranes and turbinates normal Mouth: oropharynx normal Eyes: Conjunctivae: conjunctivae normal Pupils: PERRL EOM: EOM intact bilaterally Neck: Neck: full ROM, no lymphadenopathy and supple Lymphatic: no lymphadenopathy noted and no lymphedema noted Resp: Effort & Inspection: normal respiratory effort Auscultation: clear to auscultation bilaterally Cardio: Rate: regular rate Rhythm: regular rhythm GI: Palpation: soft, no hepatosplenomegaly, no guarding and nontender Auscultation: normoactive bowel sounds Skin: General: no rashes or lesions noted Neuro: General: Yes oriented to person, Yes oriented to place and Yes oriented to time Cranial Nerves: PERRL Extrem: General: normal to inspection, normal capillary refill, no clubbing, cyanosis or edema, no pedal edema and no calf tenderness Discharge Plan Discharge Prescriptions: No Action nitrofurantoin monohyd/m-cryst [Macrobid] 100 mg capsule 100 mg PO BID RF: 0 simvastatin 40 mg tablet 40 mg PO BEDTIME RF: 0 ascorbic acid (vitamin C) 1,000 mg tablet 1,000 mg PO TID RF: 0 isosorbide mononitrate 30 mg tablet extended release 24 hr 30 mg PO DAILY RF: 0 metoprolol succinate 25 mg tablet extended release 24 hr 25 mg PO DAILY RF: 0 pregabalin 200 mg capsule 200 mg PO BID RF: 0 methenamine hippurate 1 gram tablet 1 gm PO BID RF: 0 tamsulosin 0.4 mg capsule 0.4 mg PO BID RF: 0 mirtazapine 7.5 mg tablet 15 mg PO BEDTIME RF: 0 vancomycin [Vancocin] 125 mg capsule 125 mg PO QID RF: 0 aspirin [Aspir-81] 81 mg tablet,delayed release (DR/EC) 81 mg PO DAILY RF: 0 Creon 3,000-9,500- 15,000 unit capsule,delayed release(DR/EC) 1 cap PO TID RF: 0 aripiprazole 5 mg tablet 5 mg PO DAILY RF: 0 albuterol sulfate 90 mcg/actuation HFA aerosol inhaler 2 puff INHALATION Q6H PRN (Reason: Shortness Of Breath) RF: 0 sertraline [Zoloft] 100 mg tablet 100 mg PO Q24H RF: 0 Novolog Flexpen U-100 Insulin 100 unit/mL (3 mL) insulin pen 5 unit SUBCUT TID RF: 0 levothyroxine 75 mcg capsule 75 mcg PO DAILY RF: 0 cholecalciferol (vitamin D3) 1,000 unit capsule 1,000 unit PO Q7D RF: 0 clopidogrel 75 mg tablet 75 mg PO DAILY RF: 0 Lantus U-100 Insulin 100 unit/mL solution 25 unit SUBCUT BEDTIME RF: 0 ondansetron HCl [Zofran] 4 mg tablet 4 mg PO Q8H PRN (Reason: Nausea) RF: 0 hydrocodone-acetaminophen [[place]] 5-325 mg tablet 1 tab PO Q6H PRN (Reason: oain) RF: 0 bupropion HCl [Wellbutrin SR] 100 mg tablet sustained-release 12 hr 100 mg PO DAILY RF: 0 pantoprazole 40 mg tablet,delayed release (DR/EC) 40 mg PO QAM RF: 0 Miconazole 7 100 mg suppository 100 mg VAGINAL ONCE Qty: 7 RF: 0 clotrimazole 1 % cream 1 applic TOPICAL BID 14 Days RF: 0 Coding Level of Care Code ED Tin Container Straightener for Chg Stephen
--- NOTE | 2019-06-08 17:01 | ED_ITS ---
Entered by Pattie Leal, acting as scribe for Rick Martino DO HPI - Fever General: Chief Complaint: Fever Stated Complaint: FEVER Time Seen by Provider: 06/08/19 16:48 History of Present Illness: HPI Narrative: 58yo female presents with fever and painful urination. Symptoms have gradually worsened. Patient denies any nausea, vomiting, or diarrhea. No hematochezia melena hematemesis coffee-ground emesis. Associated symptoms: Reports dysuria; Deny abdominal pain, back/flank pain, chills, chest pain, diarrhea, nasal congestion, nausea or vomiting Review of Systems Const: Reports: fever; Denies: chills ENMT: Denies: nasal congestion Card: Denies: chest pain Resp: Denies: shortness of breath, productive cough or non-productive cough GI: Denies: abdominal pain, nausea, vomiting or diarrhea : Reports: painful urination; Denies: flank pain Skin/Breast: Denies: rash or itching PFSH ED PFSH: Medical History (Updated 06/11/19 @ 00:53 by Rick Martino DO) ASHD (arteriosclerotic heart disease) Bilateral hydronephrosis Bladder wall thickening Carotid stenosis, bilateral Chronic cystitis COPD (chronic obstructive pulmonary disease) Diabetes Essential hypertension Hydronephrosis of right kidney Hyperlipidemia PAD (peripheral artery disease) Surgical History S/P amputation of foot S/P below knee amputation S/P cataract extraction S/P tubal ligation Status post bilateral above knee amputation Status post tubal ligation Family History Family/Other Psychiatric illness CAD (coronary artery disease) Diabetes Cancer Stroke Social History Smoking and tobacco status: current every day smoker cigarettes Packs smoked per day: 0.5 Alcohol intake: never Housing: [facility] Marital status: / Current occupational status: disabled Physical Exam Const: COMMON NORMALS: no apparent distress GENERAL APPEARANCE: cooperative and comfortable ORIENTATION/CONSCIOUSNESS: Yes awake, Yes oriented to person, Yes oriented to place and Yes oriented to time HENMT: COMMON NORMALS: normocephalic, head/scalp atraumatic, hearing grossly normal bilaterally, external ears normal, EAC's normal, TM's normal bilaterally, nasal mucous membranes and turbinates normal, moist oral mucous membranes and oropharynx normal HEAD & SCALP: normocephalic and atraumatic NOSE: nasal mucous membranes and turbinates normal EXTERNAL EAR: Yes external ears normal EXTERNAL AUDITORY CANAL: EAC's normal TYMPANIC MEMBRANE: TM's normal bilaterally Eye: COMMON NORMALS: PERRL, EOMs intact bilaterally, conjunctivae normal and no scleral icterus CONJUNCTIVA: Yes conjunctivae normal PUPIL: Yes PERRL Neck/C-Spine: COMMON NORMALS: full ROM, no lymphadenopathy, supple and no JVD Lymph: LYMPHATIC: no lymphadenopathy noted and no lymphedema noted Resp: COMMON NORMALS: normal respiratory effort, no retractions, no use of accessory muscles and clear to auscultation bilaterally AUSCULTATION: clear to auscultation bilaterally Cardio: COMMON NORMALS: no JVD, regular rate, regular rhythm and no murmurs RATE: regular rate RHYTHM: regular rhythm GI: COMMON NORMALS: soft to palpation and no hepatosplenomegaly AUSCULTATION: Yes normoactive bowel sounds PALPATION: Yes soft, No tender, No guarding and Yes no hepatosplenomegaly Extremity: COMMON NORMALS: normal to inspection, normal capillary refill, no clubbing, cyanosis or edema, no calf tenderness and no pedal edema Neuro: SENSORIUM/ORIENTATION: Yes oriented to person, Yes oriented to place and Yes oriented to time Skin: COMMON NORMALS: no rashes or lesions noted GENERAL SKIN EXAM: no rashes or lesions noted Course ED course: Discussed case with hospitalist will go ahead and admit hyponatremia and cystitis. Vital Signs: Vital signs: Vital Signs Temperature 98.3 F 06/10/19 20:00 Pulse Rate 94 06/10/19 20:00 Respiratory Rate 20 H 06/10/19 20:00 Blood Pressure 145/69 06/10/19 20:00 Pulse Oximetry 96 06/10/19 20:00 MDM - Fever Lab Data: Labs: Lab Results 06/08/19 06/08/19 06/08/19 Range/Units 17:20 17:20 17:30 WBC 25.0 H (4.0-10.0) 10^3/ uL RBC 3.53 L (4.1-5.3) 10^6/u L Hgb 8.1 L (11.5-15.3) g/dL Hct 29.1 L (37.0-47.0) % MCV 82.4 (81-99) fL MCH 22.9 L (28.0-34.0) pg MCHC 27.8 L (30.0-36.0) g/dL RDW 19.9 H (12.1-15.1) % Plt Count 537 H (130-400) 10^3/c mm MPV 10.3 (7.4-10.4) fL Neut % (Auto) 80.9 % Lymph % (Auto) 4.9 % [place] % (Auto) 11.9 % Eos % (Auto) 0.9 % Baso % (Auto) 0.4 % Neut # (Auto) 20.2 H (1.8-7.7) 10^3/u L Lymph # (Auto) 1.2 (0.8-4.8) 10^3/u L [place] # (Auto) 3.0 H (0.2-0.9) 10^3/u L Eos # (Auto) 0.2 (0.0-0.8) 10^3/u L Baso # (Auto) 0.1 (0.0-0.1) 10^3/u L Nucleated RBC % (a uto) 0.1 % Nucleated RBCs # 0.0 /100WBC Sodium 129 L (136-145) mmol/L Potassium 5.5 H (3.5-5.1) mmol/L Chloride 101 (98-107) mmol/L Carbon Dioxide 12 L (22-29) mmol/L Anion Gap 21.5 H (5-19) BUN 51 H (6-20) mg/dL Creatinine 1.6 H (0.5-0.9) mg/dL GFR Calculation 33.2 L (90-130) mL/min Glucose 338 H (65-115) mg/dL Calculated Osmolal ity 280 L (285-295) mOsm/k g Lactate (0.5-2.2) mmol/L Calcium 8.9 (8.5-10.5) mg/dL Total Bilirubin 0.2 (0.15-1.2) mg/dL AST 15 (0-32) U/L ALT 20 (0-33) U/L Alkaline Phosphata se 180 H (35-105) IU/L Total Protein 7.3 (6.6-8.7) g/dL Albumin 2.6 L (3.5-5.2) g/dL Globulin 4.7 H (1.3-4.6) g/dL Lipase 39 (13-60) U/L Urine Color (Yellow) Urine Appearance (CLEAR) Urine pH (5-7) Ur Specific Gravit y (1.005-1.030) Urine Protein (Negative) Urine Glucose (UA) (Normal) Urine Ketones (Negative) Urine Blood (Negative) Urine Nitrate (Negative) Urine Bilirubin (NEGATIVE) Urine Urobilinogen (Negative) mg/dL Ur Leukocyte Trina ase (Negative) Urine RBC (0-2) /hpf Urine WBC (0-5) /hpf Ur Squamous Epith Cells (0-5) Urine Bacteria (NONE) Urine Mucus Urine Yeast Influenza Type A A g Negative (Negative) POC Influenza B Ag Negative (Negative) 06/08/19 06/08/19 Range/Units 17:37 18:15 WBC (4.0-10.0) 10^3/ uL RBC (4.1-5.3) 10^6/u L Hgb (11.5-15.3) g/dL Hct (37.0-47.0) % MCV (81-99) fL MCH (28.0-34.0) pg MCHC (30.0-36.0) g/dL RDW (12.1-15.1) % Plt Count (130-400) 10^3/c mm MPV (7.4-10.4) fL Neut % (Auto) % Lymph % (Auto) % [place] % (Auto) % Eos % (Auto) % Baso % (Auto) % Neut # (Auto) (1.8-7.7) 10^3/u L Lymph # (Auto) (0.8-4.8) 10^3/u L [place] # (Auto) (0.2-0.9) 10^3/u L Eos # (Auto) (0.0-0.8) 10^3/u L Baso # (Auto) (0.0-0.1) 10^3/u L Nucleated RBC % (a uto) % Nucleated RBCs # /100WBC Sodium (136-145) mmol/L Potassium (3.5-5.1) mmol/L Chloride (98-107) mmol/L Carbon Dioxide (22-29) mmol/L Anion Gap (5-19) BUN (6-20) mg/dL Creatinine (0.5-0.9) mg/dL GFR Calculation (90-130) mL/min Glucose (65-115) mg/dL Calculated Osmolal ity (285-295) mOsm/k g Lactate 1.7 (0.5-2.2) mmol/L Calcium (8.5-10.5) mg/dL Total Bilirubin (0.15-1.2) mg/dL AST (0-32) U/L ALT (0-33) U/L Alkaline Phosphata se (35-105) IU/L Total Protein (6.6-8.7) g/dL Albumin (3.5-5.2) g/dL Globulin (1.3-4.6) g/dL Lipase (13-60) U/L Urine Color Yellow (Yellow) Urine Appearance Hazy A (CLEAR) Urine pH 5 (5-7) Ur Specific Gravit y 1.015 (1.005-1.030) Urine Protein 1+ H (Negative) Urine Glucose (UA) Trace H (Normal) Urine Ketones Negative (Negative) Urine Blood 3+ H (Negative) Urine Nitrate Negative (Negative) Urine Bilirubin Neg (NEGATIVE) Urine Urobilinogen Norm (Negative) mg/dL Ur Leukocyte Trina ase 2+ H (Negative) Urine RBC 25-40 H (0-2) /hpf Urine WBC Too numerous to c nt H (0-5) /hpf Ur Squamous Epith Cells 0-4 H (0-5) Urine Bacteria 2+ H (NONE) Urine Mucus 1+ Urine Yeast 1+ H Influenza Type A A g (Negative) POC Influenza B Ag (Negative) Discharge Plan Discharge Patient Disposition: Admitted As Inpatient Admit Provider: Kathryn Salas Clinical Impression: Urinary tract infection, Anemia, Acute kidney injury, Hyperkalemia, Hyponatremia Condition: Stable Interventions: ED Discharge Assessment Last Done: 06/08/19 21:14 Discharge Date/Time: 06/08/19 21:16 Coding Level of Care Code ED Change Agent for Chg Fwd Exam Comprehensive The documentation recorded by the Mel rene Bailey Leadawn, accurately reflects the service I personally performed and the decisions made by , Rick Martino, Jun 08, 2019 16:39
[2019-06-08 17:32] LABS: Basophils # 0.1 10^3/uL (0.0-0.1); Basophils % 0.4 %; Eosinophils # 0.2 10^3/uL (0.0-0.8); Eosinophils % 0.9 %; Hematocrit 29.1 % (37.0-47.0); Hemoglobin 8.1 g/dL (11.5-15.3); Lymphocytes # 1.2 10^3/uL (0.8-4.8); Lymphocytes % 4.9 %; Mean Corpuscular HGB Conc 27.8 g/dL (30.0-36.0); Mean Corpuscular Hemoglobin 22.9 pg (28.0-34.0); Mean Corpuscular Volume 82.4 fL (81-99); Mean Platelet Volume 10.3 fL (7.4-10.4); Monocytes % 11.9 %; Neutrophils # 20.2 10^3/uL (1.8-7.7); Neutrophils % 80.9 %; Nucleated Red Blood Cells % 0.1 %; Platelet Count 537 10^3/cmm (130-400); Red Blood Count 3.53 10^6/uL (4.1-5.3); Red Cell Distribution Width 19.9 % (12.1-15.1)
[2019-06-08 17:46] LABS: Alanine Aminotransferase 20 U/L (0-33); Albumin Level 2.6 g/dL (3.5-5.2); Alkaline Phosphatase 180 IU/L (35-105); Anion Gap 21.5 (5-19); Aspartate Amino Transferase 15 U/L (0-32); Blood Urea Nitrogen 51 mg/dL (6-20); Calcium 8.9 mg/dL (8.5-10.5); Carbon Dioxide 12 mmol/L (22-29); Chloride 101 mmol/L (98-107); Globulin 4.7 g/dL (1.3-4.6); Glomerular Filtration Rate 33.2 mL/min (90-130); Glucose 338 mg/dL (65-115); Lipase 39 U/L (13-60); Osmolality Calculated 280 mOsm/kg (285-295); Potassium 5.5 mmol/L (3.5-5.1); Sodium 129 mmol/L (136-145); Total Bilirubin 0.2 mg/dL (0.15-1.2); Total Protein 7.3 g/dL (6.6-8.7)
--- NOTE | 2019-06-08 18:00 | XRR_ITS ---
PROCEDURE INFORMATION: Exam: XR Chest, 1 View Exam date and time: 06/08/2019 6:01 PM Age: 58 years old Clinical indication: Shortness of breath; Additional info: Dyspnea/cough TECHNIQUE: Imaging protocol: XR of the chest Views: 1 view. COMPARISON: CR Chest 1 [place] [id number] 01/27/2019 8:58 PM FINDINGS: Lungs: Unremarkable. No consolidation. Pleural space: Unremarkable. No pleural effusion. No pneumothorax. Heart/Mediastinum: Unremarkable. No cardiomegaly. Bones/joints: No acute abnormality. XR/XR chest 1V portable [id number] IMPRESSION: No acute findings.
[2019-06-08 18:04] LABS: Bilirubin Urine Neg (NEGATIVE); Blood Urine 3+ (Negative); Glucose Urine UA Trace (Normal); Ketones Urine Negative (Negative); Leukocyte Esterase Urine 2+ (Negative); Nitrate Urine Negative (Negative); Protein Urine 1+ (Negative); Specific Gravity, Urine 1.015 (1.005-1.030); Urine Appearance Hazy (CLEAR); Urine Color Yellow (Yellow); Urobilinogen Urine Norm (Negative); pH Urine 5 (5-7)
[2019-06-08 18:05] LABS: Add Urine Microscopic? YES
[2019-06-08 18:08] LABS: Bacteria Urine 2+; Mucus Urine 1+; RBC Urine 25-40 /hpf (0-2); Squamous Epithelial Cell Urine 0-4 (0-5); WBC Urine TOO NUMEROUS TO CNT /hpf (0-5)
[2019-06-08 18:09] LABS: Add Urine Culture? Yes
[2019-06-08 18:11] LABS: Influenza A by IFA Negative (Negative); Influenza B by IFA Negative (Negative)
[2019-06-08] MEDS: sodium chloride 0.9% 1,000 ML 999 ML IV (19:21)
[2019-06-08] MEDS: levofloxacin-dextrose 5 % 750 MG/150 ML PREMIX 150 MG IV (19:25)
[2019-06-08 19:53] LABS: Lactate (Lactic Acid level) 1.7 mmol/L (0.5-2.2)
--- NOTE | 2019-06-08 19:57 | P.HP_ITS ---
Providers/Chief Complaint Primary Care Provider: Bryan Adams Chief Complaint: FEVER History of Present Illness ,Leelee Guidry is a 58 year old female has a very complex past medical history of recurrent UTIs, Diflucan resistant yeast infection, Klebsiella UTIs, bilateral above-knee amputation, resident of a intermediate was brought in today for chief concerns of fever and hypotension. Patient was admitted last time for UTI which was resistant to Diflucan, because of shortage of caspofungin at that time she was discharged back to intermediate on Macrobid and topical miconazole/clotrimazole cream regimen, she was asked to follow-up with Dr. Poon for cystoscopy. Patient is stating that today she spiked fever 100.6 with hypotension. She is stating that her dysuria is chronic, her diarrhea is chronic there no change in the intensity and symptoms. She is compliant with her medications, she smokes about less than half a pack a day. He is feeling very lethargic and tired. She is denying, nausea, vomiting, shortness of breath or chest pain but endorses to low intensity sharp right lower quadrant pain radiating towards her groin. Diagnostics in ER revealed leukocytosis, fever, tachycardia, hypotension, she has received normal saline fluid, I have started her on Zosyn and caspofungin regimen Urine and blood cultures have been obtained We will check C. difficile She is wearing adult diapers, she moves her bowels mostly in her diapers and with diarrhea her perineal skin gets really moist and erythematous. Review of Systems Const: Reports: fever, chills, body aches and fatigue; Denies: change in appetite or change in weight Eyes: Denies: change in vision ENMT: Denies: throat pain, uvular edema or painful swallowing Card: Denies: chest pain, palpitations or irregular heart rhythm Resp: Denies: shortness of breath GI: Reports: abdominal pain, heartburn/indigestion, diarrhea and cramping; Denies: nausea or vomiting : Reports: difficulty urinating, painful urination, urinary frequency, urinary urgency and vaginal odor; Denies: flank pain Musc: Denies: neck pain or extremity swelling Skin/Breast: Reports: itching and redness; Denies: rash Neuro: Denies: headache or weakness in extremities Endo: Reports: excessive urination Josh/Lymph: Denies: easy bruising All/Imm: Denies: hives Medications/Allergies Home Medications Medication Instructions Recorded Confirmed Last Taken Type acetaminophen [Tylenol] 650 mg PO PRN 06/08/19 06/08/19 Unknown History miconazole nitrate See Rx Instructions .ROUTE .COMPLEX 06/08/19 06/08/19 Unknown History Allergies Allergy/AdvReac Type Severity Reaction Status Date / Time codeine Allergy NA Verified 05/31/19 12:11 meperidine Allergy NA Verified 05/31/19 12:11 PFSH Acute PFSH: Medical History ASHD (arteriosclerotic heart disease) Bilateral hydronephrosis Bladder wall thickening Carotid stenosis, bilateral Chronic cystitis COPD (chronic obstructive pulmonary disease) Diabetes Essential hypertension Hyperlipidemia PAD (peripheral artery disease) Surgical History Status post bilateral above knee amputation Family History Family/Other Psychiatric illness CAD (coronary artery disease) Diabetes Cancer Stroke Social History Smoking and tobacco status: current every day smoker cigarettes Packs smoked per day: 0.5 Alcohol intake: never Housing: Skilled Nursing Marital status: / Current occupational status: disabled Vitals/I&O/Wt Last Vital Signs Temp 100.6 F H 06/08/19 16:42 Pulse 90 06/08/19 16:42 Resp 18 06/08/19 16:42 BP 131/70 06/08/19 16:42 Pulse Ox 97 06/08/19 16:42 Weight last 48 hrs Weight 71.214 kg Physical Exam Narrative: EXAM NARRATIVE: Patient appears stated age, no active distress She appears lethargic Hypertensive, tachycardic, febrile S1, S2 sinus tachycardia, no signs of heart failure Abdomen soft, nontender, nondistended, mild tenderness on deep palpation of right lower quadrant, Right and left groin area is not hyperemic however it is moist and and her adult diapers are completely soiled with her fecal matter, Malodorous groin area Shallow breaths however no respiratory distress, no adventitious sounds appreciated Bilateral above-knee amputation Mood seems to be depressed and low AWake alert oriented x3 Data : 06/08/19 17:20 06/08/19 17:20 Micro: Microbiology 06/08/19 17:20 Blood Culture - Preliminary Blood SPECIMEN COLLECTED 06/08/19 18:15 Blood Culture - Preliminary Blood SPECIMEN COLLECTED A&P Assessment and plan (1) Urinary tract infection: Status: Acute Qualifiers: Urinary tract infection type: acute cystitis Code(s): N39.0 - Urinary tract infection, site not specified (2) Candidiasis of vagina: Status: Acute Code(s): B37.3 - Candidiasis of vulva and vagina (3) Anemia: Status: Acute Qualifiers: Iron deficiency anemia type: unspecified iron deficiency Code(s): D64.9 - Anemia, unspecified (4) Acute kidney injury: Status: Acute Code(s): N17.9 - Acute kidney failure, unspecified (5) Bladder wall thickening: Status: Acute Code(s): N32.89 - Other specified disorders of bladder (6) Chronic cystitis: Status: Acute Code(s): N30.20 - Other chronic cystitis without hematuria (7) Hyperkalemia: Status: Acute Code(s): E87.5 - Hyperkalemia (8) Hyponatremia: Status: Acute Code(s): E87.1 - Hypo-osmolality and hyponatremia (9) Protein calorie malnutrition: Status: Acute Code(s): E46 - Unspecified protein-calorie malnutrition (10) Sepsis: Status: Acute Code(s): A41.9 - Sepsis, unspecified organism Additional A&P Information Sepsis secondary to UTI History of Klebsiella and Diflucan resistant leatha UTI Sepsis criteria met with fever, tachycardia, leukocytosis, hypotension, Check lactic acid, fluid resuscitation, Zosyn and caspofungin IV Blood and urine culture C. difficile to be ruled out This is most likely secondary to perineal contamination with stool due to chronic diarrhea Important to have source control to avoid recurrent UTIs Acute kidney injury with hyperkalemia &metabolic acidosis Baseline creatinine is 1-1.2, current creatinine 1.[address] abdomen and pelvis to rule out hydronephrosis Zosyn to be renally dosed, I would reduce the dose of gabapentin Lactic acid is normal, I will give her 1 amp of bicarb Chronic diarrhea: Patient is on pancreatic enzymes for chronic pancreatic insufficiency, would rule out C. difficile, Isolation No colonoscopy with recent biopsy Previously she was positive for C. difficile Type 2 diabetes: Sliding scale Patient is DNR/DNI Low potassium cardiac diet Attestations Medical Necessity Statement*: Needs inpatient care for sepsis secondary to resistant microorganism UTI Time Spent in Patient Care: 50 Coding Level of Care Code Acute Wet Trimmer for Chg Fwd Diagnoses Urinary tract infection N39.0 Urinary tract infection type: acute cystitis Candidiasis of vagina B37.3 Anemia D64.9 Iron deficiency anemia type: unspecified iron deficiency Acute kidney injury N17.9 Bladder wall thickening N32.89 Chronic cystitis N30.20 Hyperkalemia E87.5 Hyponatremia E87.1 Protein calorie malnutrition E46 Sepsis A41.9
[2019-06-08 21:02] VITALS: RESP 17; O2SAT 96
[2019-06-08] MEDS: fentaNYL 50 mcg/mL INJ 2mL IVP (21:02)
--- NOTE | 2019-06-08 21:02 | CTR_ITS ---
PROCEDURE INFORMATION: Exam: CT Abdomen And Pelvis Without Contrast Exam date and time: 06/08/2019 9:35 PM Age: 58 years old Clinical indication: Patient HX: Nh PT w fever and UTI; Additional info: UTI and sepsis TECHNIQUE: Imaging protocol: Computed tomography of the abdomen and pelvis without contrast. Total DLP: 1076.01 mGy-cm Radiation optimization: All CT scans at this facility use at least one of these dose optimization techniques: automated exposure control; mA and/or kV adjustment per patient size (includes targeted exams where dose is matched to clinical indication); or iterative reconstruction. COMPARISON: CT Abdomen/Pelvis Renal [id number] 01/27/2019 6:32 PM FINDINGS: Lungs: Nonspecific bibasilar ground-glass opacity is present, consistent with atelectasis, edema, or pneumonia. Mediastinum: A small hiatal hernia is present. Liver: Unremarkable.No mass. Gallbladder and bile ducts: There has been a cholecystectomy. Pancreas: Normal. No ductal dilation. Spleen: Normal. No splenomegaly. Adrenals: Normal. No mass. Kidneys and ureters: There is unchanged bilateral moderate to severe hydronephrosis right greater than left. There is hyperdensity layering out dependently with than both renal pelves that may reflect some hemorrhage or proteinaceous debris. There is inflammatory perinephric stranding. There is no nephrolithiasis. Stomach and bowel: Unremarkable. No obstruction. No mucosal thickening. Appendix: A normal appendix is identified. Intraperitoneal space: Unremarkable. No free air. No significant fluid collection. Vasculature: Unremarkable.No abdominal aortic aneurysm. Lymph nodes: Unremarkable.No enlarged lymph nodes. Bladder: The urinary bladder wall is very thickened despite being moderately distended. This is unchanged. There is also an air bubble in the lumen and hyperdensity in the dependent bladder concerning for cystitis with proteinaceous debris or hemorrhage. Reproductive: Uterus is heterogeneous with calcified fibroids. Adnexa are unremarkable. Bones/joints: There is osteopenia and moderate to severe degenerative changes are noted in the spine and pelvis. Soft tissues: There is a fat-containing umbilical hernia. Other findings: No obstructing calculi. CT/CT abdomen pelvis wo con [id number] IMPRESSION: 1. Nonspecific bibasilar ground-glass opacity is present, consistent with atelectasis, edema, or pneumonia. 2. Unchanged thickening of the urinary bladder wall. There is a tiny air bubble in the bladder and hyperdensity layering out dependently. This could reflect recent instrumentation or urinary tract infection within terminal proteinaceous debris or hemorrhage. 3. There is unchanged bilateral moderate to severe hydronephrosis right greater than left. Hemorrhage versus proteinaceous debris is also noted layering out dependently within the dilated renal pelves. Radiation Dose CTDIVOL = (mGy): DLP = 1076.01 (mGy-cm)
[2019-06-08 21:14] VITALS: BP 109/45; PULSE 104; RESP 17; O2SAT 96
[2019-06-08 21:28] VITALS: BP 117/64; PULSE 103; RESP 18; TEMP 36.9
[2019-06-08 21:30] VITALS: BP 117/64; PULSE 103; RESP 18; TEMP 36.9; O2SAT 95
[2019-06-08 22:25] LABS: Glucose Point of Care 241 mg/dL (70-110)
[2019-06-08] MEDS: sodium bicarbonate 150 MEQ in dextrose 5% 1,000 ML IV (22:48)
[2019-06-08] MEDS: atorvastatin 40 mg Tablet 20 MG PO (22:49)
[2019-06-08] MEDS: insulin glargine 100 units/1 mL 25 UNIT SUBCUT (22:49)
[2019-06-08] MEDS: sertraline 100 mg Tablet PO (22:49)
[2019-06-08] MEDS: sodium chloride 0.9% 1,000 ML 125 ML IV (23:00)
[2019-06-09] VITALS: BP 127/70; PULSE 92; RESP 18; TEMP 36.9; O2SAT 96
[2019-06-09] MEDS: piperacillin-tazobactam 3.375 GM in sodium chloride 0.9% (plus) 50 ML IV ×3 (02:38→17:01)
[2019-06-09 04:00] VITALS: BP 123/63; PULSE 95; RESP 18; TEMP 38; O2SAT 96
[2019-06-09 05:20] LABS: Basophils # 0.1 10^3/uL (0.0-0.1); Basophils % 0.4 %; Eosinophils # 0.3 10^3/uL (0.0-0.8); Eosinophils % 1.2 %; Hematocrit 27.2 % (37.0-47.0); Hemoglobin 7.7 g/dL (11.5-15.3); Lymphocytes # 1.1 10^3/uL (0.8-4.8); Lymphocytes % 5.2 %; Mean Corpuscular HGB Conc 28.3 g/dL (30.0-36.0); Mean Corpuscular Hemoglobin 23.1 pg (28.0-34.0); Mean Corpuscular Volume 81.4 fL (81-99); Mean Platelet Volume 10.4 fL (7.4-10.4); Monocytes # 2.7 10^3/uL (0.2-0.9); Monocytes % 12.6 %; Neutrophils % 79.7 %; Nucleated Red Blood Cells % 0 %; Platelet Count 403 10^3/cmm (130-400); Red Blood Count 3.34 10^6/uL (4.1-5.3); Red Cell Distribution Width 19.6 % (12.1-15.1); White Blood Count 21.4 10^3/uL (4.0-10.0)
[2019-06-09 05:39] LABS: Alanine Aminotransferase 13 U/L (0-33); Alkaline Phosphatase 162 IU/L (35-105); Anion Gap 15.4 (5-19); Aspartate Amino Transferase 12 U/L (0-32); Blood Urea Nitrogen 36 mg/dL (6-20); Carbon Dioxide 17 mmol/L (22-29); Chloride 112 mmol/L (98-107); Globulin 4.5 g/dL (1.3-4.6); Glomerular Filtration Rate 51.2 mL/min (90-130); Glucose 178 mg/dL (65-115); Osmolality Calculated 292 mOsm/kg (285-295); Potassium 4.4 mmol/L (3.5-5.1); Sodium 140 mmol/L (136-145); Total Bilirubin 0.2 mg/dL (0.15-1.2); Total Protein 6.5 g/dL (6.6-8.7)
[2019-06-09] MEDS: acetaminophen 325 mg Tablet 650 MG PO ×3 (05:41→20:12)
[2019-06-09] MEDS: pantoprazole DR 40 mg Tablet PO (06:37)
[2019-06-09 07:30] VITALS: BP 122/67; PULSE 82; RESP 18; TEMP 38.1; O2SAT 96
[2019-06-09] MEDS: tamsulosin 0.4 mg Capsule PO ×2 (08:06→17:05)
[2019-06-09] MEDS: clopidogrel 75 mg Tablet PO (08:06)
[2019-06-09] MEDS: ARIPiprazole 10 mg Tablet 5 MG PO (08:06)
[2019-06-09] MEDS: aspirin 81 mg EC Tablet PO (08:06)
[2019-06-09] MEDS: levothyroxine 150 mcg Tablet 75 MCG PO (08:07)
[2019-06-09] MEDS: buPROPion SR (12 HR) 100 mg Tablet PO (08:07)
[2019-06-09] MEDS: lipase-protease-amylase Capsule 1 EACH PO ×3 (08:07→17:05)
[2019-06-09] MEDS: sodium chloride 0.9% 1,000 ML 125 ML IV ×2 (08:08→13:26)
--- NOTE | 2019-06-09 10:54 | PC.CHAP ---
Pastoral Care Encounter/Spiritual Assessment Type of Contact [] Declined improvement lead visit [] Patient/Family/Request visit [] Outpatient visit [] Follow-up visit [] Physician referral [] Code/Alert [] Routine visit [] Staff referral [] Actively dying [] Patient sleeping [] Family support [] [] Out of room [] Palliative care [] [] Receiving care in room [] Pre-surgical visit [] Trauma [] Long length of stay [] ICU visit [] Other: Relational/Emotional Strength [x] Patient feels connected with others/family/visitors/staff [] Distress [] Loneliness/isolation [] Abandonment Spirituality of Patient [x] Person of Stacia [] Attends Faith of their Stacia [x] Believes in Prayer [] Reads Bible or Bahai materials [] There are Spiritual issues to be addressed Corporate Director Interventions [x] Prayer [x] Active listening [x] Non-anxious presence [x] Spiritual/emotional support [] Crisis/trauma care [] Spiritual counseling [] Bereavement support [] Provided bereavement packet [] Provided Bible/devotional materials [] Provided toy/stuffed animal, coloring book to patient or family member [] Provided Communion [] Anointing/[facility] [place] [] Salvation [x] Completed spiritual assessment [] Other: Impact on Illness or Injury [] Angry [] Fearful [] Anxious [] Often cries [] Exhaustion [] Unable to work [] Unable to attend episcopal [] Unable to walk/stand [] Unable to read [] Unable to drive [] Unable to eat/drink [] Unable to sleep [] Unable to be with family [] Patient intubated [] Other: Summary Chaplains prayed with Patient. Time spent with patient 8 minutes.
[2019-06-09 11:16] VITALS: BP 126/69; PULSE 83; RESP 18; TEMP 37.8; O2SAT 95
--- NOTE | 2019-06-09 12:23 | P.PN_ITS ---
Subjective Subjective: Interval history: Admitted overnight. H&P and labs noted. This morning on examination patient is lying comfortably in bed. She denies of having any nausea, vomiting complains of abdominal pain. T-max overnight has been 100.6 Fahrenheit and she continues to remain febrile. Vitals/I&O/Wt Last Vital Signs Temp 100.0 F H 06/09/19 11:16 Pulse 83 06/09/19 11:16 Resp 18 06/09/19 11:16 BP 126/69 06/09/19 11:16 Pulse Ox 95 06/09/19 11:16 06/08/19 06/09/19 06/09/19 22:59 06:59 14:59 Intake Total 1410 / 1410 Balance 1410 / 1410 Weight last 48 hrs Weight 71.214 kg Physical Exam Narrative: EXAM NARRATIVE: General: No acute distress, AO x3, pallor present HEENT: PERRLA, pupils bilaterally equal and reactive Chest: Normal vesicular breath sounds, no added sounds, equal good air entry bilaterally CVS: S1-S2 regular, no murmurs, no tachycardia, no gallops, no rubs Abdomen: Soft, tenderness on deep palpation pain left middle quadrant, renal angle tenderness present,, no organomegaly, bowel sounds present Neuro: No focal deficits, no facial deformity, AO x3, power 5/5 in all limbs Data : 06/09/19 04:54 06/09/19 04:54 Micro: Microbiology 06/08/19 20:59 C.difficile Toxin B Gene (PCR) - Final Stool 06/08/19 17:20 Blood Culture - Preliminary Blood SPECIMEN COLLECTED 06/08/19 18:15 Blood Culture - Preliminary Blood SPECIMEN COLLECTED A&P Assessment and plan (1) Sepsis: Status: Acute Code(s): A41.9 - Sepsis, unspecified organism (2) Urinary tract infection: Status: Acute Qualifiers: Urinary tract infection type: acute cystitis Code(s): N39.0 - Urinary tract infection, site not specified (3) Candidiasis of vagina: Status: Acute Code(s): B37.3 - Candidiasis of vulva and vagina (4) Anemia: Status: Acute Qualifiers: Iron deficiency anemia type: unspecified iron deficiency Code(s): D64.9 - Anemia, unspecified (5) Acute kidney injury: Status: Acute Code(s): N17.9 - Acute kidney failure, unspecified (6) Chronic cystitis: Status: Acute Code(s): N30.20 - Other chronic cystitis without hematuria (7) Hyponatremia: Status: Acute Code(s): E87.1 - Hypo-osmolality and hyponatremia (8) Protein calorie malnutrition: Status: Acute Code(s): E46 - Unspecified protein-calorie malnutrition Additional A&P Information Sepsis secondary to UTI/pyelonephritis: Sepsis criteria met with fever, tachycardia, leukocytosis, hypotension, On review of her old records patient did have a history of UTI with Klebsiella earlier this year with multiple UTIs with Aida glabrata in 2019. Urine was negative for yeast on her last admission. 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 Overnight patient started on Zosyn and caspofungin. For now will withhold caspofungin given the acute shortage. Have discussed the same with the patient and she is agreeable to the treatment plan. If caspofungin is not available micafungin is also the options. On review of old cultures there is no susceptibility. Continue with Zosyn at renal dose. If patient deteriorates or have worsening leukocytosis will introduce caspofungin accordingly. Follow-up urine cultures for bacterial and fungal growth. C. difficile negative. We will consult urology regarding the CT scan results for possible nephrostomy versus stent placement if there is any concern for obstruction. Acute kidney injury with hyperkalemia &metabolic acidosis: Resolved. Baseline creatinine is 1-1.2 Chronic diarrhea: C. difficile negative. Continue with pancrelipase. Type 2 diabetes: Sliding scale Patient is DNR/DNI Low potassium cardiac diet We will change daily prophylaxis to famotidine given history of C. difficile. Lovenox for DVT prophylaxis. Attestations Medical Necessity Statement*: Sepsis Coding Level of Care Code Acute Mental Health Associate for [facility] Diagnoses Sepsis A41.9 Urinary tract infection N39.0 Urinary tract infection type: acute cystitis Candidiasis of vagina B37.3 Anemia D64.9 Iron deficiency anemia type: unspecified iron deficiency Acute kidney injury N17.9 Chronic cystitis N30.20 Hyponatremia E87.1 Protein calorie malnutrition E46
[2019-06-09 14:17] LABS: Procalcitonin 2.58 ng/mL (0-0.5)
[2019-06-09 14:28] LABS: Iron 14 ug/dL (37-145); Percent Saturation 7.1 % (20-50); Total Iron Binding Capacity 196 mcg/dl; Unsaturated Iron Binding 182 ug/dL (112-347)
[2019-06-09 15:49] VITALS: BP 122/68; PULSE 68; RESP 16; TEMP 36.8; O2SAT 95
[2019-06-09] MEDS: famotidine 20 mg/2 mL INJ IVP (16:58)
[2019-06-09] MEDS: clotrimazole 1% cream 30 gm 1 APPLIC TOPICAL (17:00)
[2019-06-09 20:00] VITALS: BP 138/57; PULSE 97; RESP 20; TEMP 38.8; O2SAT 97
[2019-06-09] MEDS: atorvastatin 40 mg Tablet 20 MG PO (21:32)
[2019-06-09] MEDS: sertraline 100 mg Tablet PO (21:32)
[2019-06-09] MEDS: mirtazapine 15 mg Tablet PO (21:32)
[2019-06-09 21:35] LABS: Glucose Point of Care 76 mg/dL (70-110)
[2019-06-10] VITALS (14 sets, daily range): BP systolic 106–152; BP diastolic 57–79; PULSE 86–120; RESP 14–24; TEMP 36.8–37.9; O2SAT 94–100
[2019-06-10] MEDS: piperacillin-tazobactam 3.375 GM in sodium chloride 0.9% (plus) 50 ML IV ×2 (02:23→22:20)
[2019-06-10] MEDS: sodium chloride 0.9% 1,000 ML 125 ML IV ×4 (02:27→20:49)
[2019-06-10] MEDS: famotidine 20 mg/2 mL INJ IVP ×2 (04:19→16:43)
[2019-06-10 06:24] LABS: Glucose Point of Care 89 mg/dL (70-110)
[2019-06-10] MEDS: aspirin 81 mg EC Tablet PO (08:18)
[2019-06-10] MEDS: clopidogrel 75 mg Tablet PO (08:18)
[2019-06-10] MEDS: lipase-protease-amylase Capsule 1 EACH PO ×2 (08:18→18:21)
[2019-06-10] MEDS: tamsulosin 0.4 mg Capsule PO ×2 (08:18→18:21)
[2019-06-10] MEDS: levothyroxine 150 mcg Tablet 75 MCG PO (08:18)
[2019-06-10] MEDS: ARIPiprazole 10 mg Tablet 5 MG PO (08:18)
[2019-06-10] MEDS: buPROPion SR (12 HR) 100 mg Tablet PO (08:19)
[2019-06-10] MEDS: clotrimazole 1% cream 30 gm 1 APPLIC TOPICAL ×2 (08:24→18:23)
[2019-06-10 09:55] LABS: Basophils # 0.1 10^3/uL (0.0-0.1); Basophils % 0.5 %; Eosinophils # 0.4 10^3/uL (0.0-0.8); Eosinophils % 1.4 %; Hematocrit 29.6 % (37.0-47.0); Hemoglobin 8.6 g/dL (11.5-15.3); Lymphocytes % 3.9 %; Mean Corpuscular HGB Conc 29.1 g/dL (30.0-36.0); Mean Corpuscular Hemoglobin 23.5 pg (28.0-34.0); Mean Corpuscular Volume 80.9 fL (81-99); Mean Platelet Volume 10.2 fL (7.4-10.4); Monocytes # 2.3 10^3/uL (0.2-0.9); Monocytes % 9.2 %; Neutrophils # 21.3 10^3/uL (1.8-7.7); Neutrophils % 84.2 %; Nucleated Red Blood Cells % 0 %; Platelet Count 546 10^3/cmm (130-400); Red Blood Count 3.66 10^6/uL (4.1-5.3); Red Cell Distribution Width 19.9 % (12.1-15.1); White Blood Count 25.3 10^3/uL (4.0-10.0)
[2019-06-10 10:25] LABS: Alanine Aminotransferase 11 U/L (0-33); Albumin Level 2.5 g/dL (3.5-5.2); Alkaline Phosphatase 187 IU/L (35-105); Anion Gap 18.2 (5-19); Aspartate Amino Transferase 11 U/L (0-32); Blood Urea Nitrogen 20 mg/dL (6-20); Calcium 8.8 mg/dL (8.5-10.5); Carbon Dioxide 17 mmol/L (22-29); Chloride 114 mmol/L (98-107); Globulin 4.8 g/dL (1.3-4.6); Glomerular Filtration Rate 64.5 mL/min (90-130); Glucose 82 mg/dL (65-115); Osmolality Calculated 296 mOsm/kg (285-295); Potassium 4.2 mmol/L (3.5-5.1); Sodium 145 mmol/L (136-145); Total Bilirubin 0.3 mg/dL (0.15-1.2); Total Protein 7.3 g/dL (6.6-8.7)
[2019-06-10 11:36] LABS: Glucose Point of Care 129 mg/dL (70-110)
--- NOTE | 2019-06-10 12:10 | PM.CONSULT ---
Providers/Reason For Consult Consulting Physican/Specialty*: Poon/urology Reason for Consult*: Clinical picture of sepsis/UTI with right hydronephrosis Attending Physician: Tim Hamm MD Primary Care Provider: Bryan Adams History of Present Illness History of Present Illness Leelee Guidry is a 58 year old female well-known to me for history of chronic cystitis, intermittent right hydronephrosis, and multiple documented yeast UTIs. Was admitted on 06/08/2019 with fever, leukocytosis, tachycardia, hypotension suspicious for sepsis. She was placed on Zosyn/ caspofungin Complicated by history of C. difficile, chronic skin inflammatory changes and overall debilitated baseline status. The cause of her hydronephrosis is not clear but due to the intermittency from CT scan to CT scan with no intraluminal cause identified it is felt that possibly chronic bladder wall thickening from chronic cystitis was related. Her last cystoscopy was in my office in March showing evidence of chronic cystitis. CT scan on admission showed persistence of RIGHT and also LEFT hydronephrosis and some sediment in the renal pelvic area and for that reason I was consulted for consideration for possible stent placement. At her last admission there was some conversation about deep biopsies looking for evidence of invasive yeast. I reviewed that with Dr. Ellison but she is currently still on Plavix and aspirin. We will plan for a cystoscopy and BILATERAL ureteral stent placement urgently today. Review of Systems Const: Reports: fever, chills and body aches Card: Denies: chest pain or palpitations : Reports: urinary frequency and urinary urgency; Denies: flank pain Neuro: Denies: headache or numbness in extremities Psych: Reports: anxiety and depression; Denies: panic attacks Josh/Lymph: Denies: easy bruising or easy bleeding Meds/Allergies Home Medications and Allergies Home Medications Medication Instructions Recorded Confirmed Type aripiprazole 5 mg tablet 5 mg PO DAILY tab 04/10/19 06/08/19 History ascorbic acid (vitamin C) 1,000 mg 1,000 mg PO BID tab 04/10/19 06/08/19 History tablet aspirin 81 mg tablet,delayed 81 mg PO DAILY tab 04/10/19 06/08/19 History release bupropion HCl 100 mg tablet,12 hr 100 mg PO DAILY 04/10/19 06/08/19 History sustained-release clopidogrel 75 mg tablet 75 mg PO DAILY tab 04/10/19 06/08/19 History hydrocodone 5 mg-acetaminophen 325 1 tab PO Q6H PRN 04/10/19 06/08/19 History mg tablet insulin aspart U-100 100 unit/mL See Rx Instructions .ROUTE .COMPLEX 04/10/19 06/08/19 History (3 mL) subcutaneous pen insulin glargine 100 unit/mL 25 unit SUBCUT BEDTIME ml 04/10/19 06/08/19 History subcutaneous solution isosorbide mononitrate 30 mg 30 mg PO DAILY 04/10/19 06/08/19 History tablet,extended release 24 hr levothyroxine 75 mcg capsule 75 mcg PO DAILY cap 04/10/19 06/08/19 History agldlt-hkxxciss-zpsqqtk 1 cap PO TID 04/10/19 06/08/19 History 3,000-9,500-15,000 unit capsule,delayed releas methenamine hippurate 1 gram tablet 1 gm PO BID 04/10/19 06/08/19 History metoprolol succinate 25 mg 25 mg PO DAILY tab 04/10/19 06/08/19 History tablet,extended release 24 hr mirtazapine 7.5 mg tablet 15 mg PO BEDTIME tab 04/10/19 06/08/19 History nitrofurantoin 100 mg PO BID 04/10/19 06/08/19 History monohydrate/macrocrystals 100 mg capsule pantoprazole 40 mg tablet,delayed 40 mg PO QAM 04/10/19 06/08/19 History release pregabalin 200 mg capsule 200 mg PO BID 04/10/19 06/08/19 History sertraline 100 mg tablet 100 mg PO Q24H 04/10/19 06/08/19 History simvastatin 40 mg tablet 40 mg PO BEDTIME tab 04/10/19 06/08/19 History tamsulosin 0.4 mg capsule 0.4 mg PO BID cap 04/10/19 06/08/19 History clotrimazole 1 applic TOPICAL BID 14 Days gm 06/01/19 06/08/19 Rx acetaminophen [Tylenol] 650 mg PO PRN 06/08/19 06/08/19 History miconazole nitrate See Rx Instructions .ROUTE .COMPLEX 06/08/19 06/08/19 History Allergies Allergy/AdvReac Type Severity Reaction Status Date / Time codeine Allergy NA Verified 05/31/19 12:11 meperidine Allergy NA Verified 05/31/19 12:11 Current Medications Current Medications Generic Name Dose Route Start Last Admin Trade Name Freq PRN Reason Stop Dose Admin Acetaminophen 650 mg 06/08/19 21:28 06/09/19 20:12 Tylenol PO 650 mg PRN KEVIN Administration Lipase/Protease/Amylase 1 each 06/09/19 08:00 06/10/19 08:18 Zenpep PO 1 each TIDWM KEVIN Administration Aripiprazole 5 mg 06/09/19 09:00 06/10/19 08:18 Abilify PO 5 mg DAILY KEVIN Administration Aspirin 81 mg 06/09/19 09:00 06/10/19 08:18 Aspirin Ec PO 81 mg DAILY KEVIN Administration Atorvastatin Calcium 20 mg 06/08/19 21:45 06/09/19 21:32 Lipitor PO 20 mg BEDTIME KEVIN Administration Bupropion HCl 100 mg 06/09/19 09:00 06/10/19 08:19 Wellbutrin Sr (12 Hr) PO 100 mg DAILY KEVIN Administration Clopidogrel Bisulfate 75 mg 06/09/19 09:00 06/10/19 08:18 Plavix PO 75 mg DAILY KEVIN Administration Clotrimazole 1 applic 06/09/19 09:00 06/10/19 08:24 Lotrimin TOPICAL 1 applic BID KEVIN Administration Enoxaparin Sodium 40 mg 06/09/19 17:00 06/09/19 16:56 Lovenox SUBCUT Not Given Q24H [facility] Famotidine 20 mg 06/09/19 17:00 06/10/19 04:19 Pepcid Inj IVP 20 mg Q12H KEVIN Administration Sodium Chloride 1,000 mls @ 125 mls/hr 06/08/19 21:28 06/10/19 04:19 Sodium Chloride 0.9% IV 125 mls/hr .Q8H KEVIN Administration Piperacillin Sod/Tazobactam 50 mls @ 12.5 mls/hr 06/08/19 22:00 06/10/19 02:23 Sod 3.375 gm/ Sodium Chloride IV 12.5 mls/hr Q8H KEVIN Administration Protocol Insulin Glargine 25 unit 06/08/19 21:28 06/09/19 22:03 Lantus SUBCUT Not Given BEDTIME [facility] Levothyroxine Sodium 75 mcg 06/09/19 09:00 06/10/19 08:18 Synthroid PO 75 mcg DAILY KEVIN Administration Mirtazapine 15 mg 06/09/19 21:00 06/09/19 21:32 Remeron PO 15 mg BEDTIME KEVIN Administration Sertraline HCl 100 mg 06/08/19 21:28 06/09/19 21:32 Zoloft PO 100 mg Q24H KEVIN Administration Tamsulosin HCl 0.4 mg 06/09/19 09:00 06/10/19 08:18 Flomax PO 0.4 mg BID KEVIN Administration PFSH Acute PFSH: Medical History (Updated 06/10/19 @ 13:23 by Pj Poon MD) ASHD (arteriosclerotic heart disease) Bilateral hydronephrosis Bladder wall thickening Carotid stenosis, bilateral Chronic cystitis COPD (chronic obstructive pulmonary disease) Diabetes Essential hypertension Hydronephrosis of right kidney Hyperlipidemia PAD (peripheral artery disease) Surgical History S/P amputation of foot S/P below knee amputation S/P cataract extraction S/P tubal ligation Status post bilateral above knee amputation Status post tubal ligation Family History Family/Other Psychiatric illness CAD (coronary artery disease) Diabetes Cancer Stroke Social History Smoking and tobacco status: current every day smoker cigarettes Packs smoked per day: 0.5 Alcohol intake: never Housing: [facility] Marital status: / Current occupational status: disabled Vitals/I&O/Wt Last Vital Signs Temp 98.6 F 06/10/19 11:32 Pulse 86 06/10/19 11:32 Resp 18 06/10/19 11:32 BP 106/75 06/10/19 11:32 Pulse Ox 98 06/10/19 11:32 06/09/19 06/10/19 06/10/19 22:59 06:59 14:59 Intake Total 1000 / 3362.5 283.333 / 3645.833 240 / 240 Balance 1000 / 3362.5 283.333 / 3645.833 240 / 240 Weight last 48 hrs Weight 157 lb Physical Exam Const: COMMON NORMALS: no apparent distress and oriented x3; negative for healthy appearing Eye: COMMON NORMALS: no scleral icterus Resp: COMMON NORMALS: normal respiratory effort EFFORT & INSPECTION: No tachypneic and No respiratory distress Cardio: COMMON NORMALS: regular rate and regular rhythm RATE: regular rate RHYTHM: regular rhythm : OTHER: 3. Normal urethral meatus. Extremity: OTHER: Status post bilateral AKA Neuro: COMMON NORMALS: oriented x3 Psych: ATTITUDE: Yes calm and Yes engaged MOOD & AFFECT: Yes depressed mood Skin: GENERAL SKIN EXAM: no jaundice Data Micro: Micro: Microbiology 06/10/19 09:33 Blood Culture - Pr eliminary Blood SPECIMEN [facility] JUAN LUIS 06/10/19 09:27 Blood Culture - Pr eliminary Blood SPECIMEN [facility] JUAN LUIS 06/08/19 17:37 Urine Culture - Pr eliminary Urine Catheterize d Yeast species 06/08/19 17:20 Blood Culture - Pr eliminary Blood NEGATIVE TO ELSA E 06/08/19 18:15 Blood Culture - Pr eliminary Blood NEGATIVE TO ELSA E 06/09/19 13:05 C.difficile Toxin B Gene (PCR) - Fin al Stool A&P Assessment and plan (1) Chronic cystitis: Status: Acute Code(s): N30.20 - Other chronic cystitis without hematuria (2) Bladder wall thickening: Status: Acute Code(s): N32.89 - Other specified disorders of bladder (3) Bilateral hydronephrosis: Complicating chronic urinary tract infection and funguria Recommend bilateral ureteral stenting Status: Acute Code(s): N13.30 - Unspecified hydronephrosis Consult Attestations Medical Necessity Statement: See attending. 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
--- NOTE | 2019-06-10 14:02 | PM.PN ---
Subjective Subjective: Interval history: No acute events overnight. T-max in last 24 hours has been 100.4. Patient continues to have low-grade spike of fevers. On examination patient resting, stating she is feeling weak. She states her appetite is poor because she feels nauseous but denies of having any vomiting, abdominal pain, headache, palpitations. Labs, blood cultures and urine culture results noted. Vitals/I&O/Wt Last Vital Signs Temp 98.6 F 06/10/19 11:32 Pulse 86 06/10/19 11:32 Resp 18 06/10/19 11:32 BP 106/75 06/10/19 11:32 Pulse Ox 98 06/10/19 11:32 06/09/19 06/10/19 06/10/19 22:59 06:59 14:59 Intake Total 1000 / 3362.5 283.333 / 3645.833 1290 / 1290 Balance 1000 / 3362.5 283.333 / 3645.833 1290 / 1290 Weight last 48 hrs Weight 71.214 kg Physical Exam Narrative: EXAM NARRATIVE: General: No acute distress, AO x3, pallor present HEENT: PERRLA, pupils bilaterally equal and reactive Chest: Normal vesicular breath sounds, no added sounds, equal good air entry bilaterally CVS: S1-S2 regular, no murmurs, no tachycardia, no gallops, no rubs Abdomen: Soft, tenderness on deep palpation pain left middle quadrant, renal angle tenderness present,, no organomegaly, bowel sounds present Neuro: No focal deficits, no facial deformity, AO x3, power 5/5 in all limbs Data : 06/10/19 09:27 06/10/19 09:27 Micro: Microbiology 06/10/19 09:33 Blood Culture - Preliminary Blood SPECIMEN COLLECTED 06/10/19 09:27 Blood Culture - Preliminary Blood SPECIMEN COLLECTED 06/08/19 17:37 Urine Culture - Preliminary Urine Catheterized Yeast species 06/08/19 17:20 Blood Culture - Preliminary Blood NEGATIVE TO DATE 06/08/19 18:15 Blood Culture - Preliminary Blood NEGATIVE TO DATE 06/09/19 13:05 C.difficile Toxin B Gene (PCR) - Final Stool A&P Assessment and plan (1) Sepsis: Status: Acute Code(s): A41.9 - Sepsis, unspecified organism (2) Urinary tract infection: Status: Acute Qualifiers: Urinary tract infection type: acute cystitis Code(s): N39.0 - Urinary tract infection, site not specified (3) Candidiasis of vagina: Status: Acute Code(s): B37.3 - Candidiasis of vulva and vagina (4) Anemia: Status: Acute Qualifiers: Iron deficiency anemia type: unspecified iron deficiency Code(s): D64.9 - Anemia, unspecified (5) Acute kidney injury: Status: Acute Code(s): N17.9 - Acute kidney failure, unspecified (6) Chronic cystitis: Status: Acute Code(s): N30.20 - Other chronic cystitis without hematuria (7) Hyponatremia: Status: Acute Code(s): E87.1 - Hypo-osmolality and hyponatremia (8) Protein calorie malnutrition: Status: Acute Code(s): E46 - Unspecified protein-calorie malnutrition Additional A&P Information Sepsis secondary to UTI/pyelonephritis: Sepsis criteria met with fever, tachycardia, leukocytosis, hypotension, On review of her old records patient did have a history of UTI with Klebsiella earlier this year with multiple UTIs with Aida glabrata in 2019. Urine was negative for yeast on her last admission. 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 C. difficile negative. Urine cultures growing yeast again. Have asked lab to do speciation and sensitivity for further treatment. Start patient on caspofungin 50 mg IV every 24 hour. She had already received 70 mg bolus on admission. Have discussed with pharmacy for now we have 3-day supply of caspofungin. Pharmacy will try to get more vials for further treatment. Continue with Zosyn at current dose. Have discussed the case with Dr. Poon along with her CT results so the plan would be for her to undergo stent placement for possible decompression today. N.p.o. till OR. On prior admission there was some concern with Aida being more the colonizers for which patient would need a biopsy to confirm. We will hold off on aspirin and Plavix for now in case patient would need biopsy in coming days. If patient is not going for the repeat procedure can restart aspirin Plavix in 3 days. Acute kidney injury with hyperkalemia &metabolic acidosis: Resolved. Baseline creatinine is 1-1.2 Chronic diarrhea: C. difficile negative. Continue with pancrelipase. Type 2 diabetes: Sliding scale Patient is DNR/DNI Low potassium cardiac diet Famotidine for PUD prophylaxis Lovenox for DVT prophylaxis. Attestations Medical Necessity Statement*: Sepsis due to Aida pyelonephritis Time Spent in Patient Care: Greater than 35 minutes Coding Level of Care Code Acute Transition Advisor for g Fwd Diagnoses Sepsis A41.9 Urinary tract infection N39.0 Urinary tract infection type: acute cystitis Candidiasis of vagina B37.3 Anemia D64.9 Iron deficiency anemia type: unspecified iron deficiency Acute kidney injury N17.9 Chronic cystitis N30.20 Hyponatremia E87.1 Protein calorie malnutrition E46
--- NOTE | 2019-06-10 14:13 | ANES.PREANE2 ---
Pre-Anesthetic Assessment Pre-Anesthetic Assessment: Height/Weight: Height 1.65 m Weight 71.214 kg Temp Pulse Resp BP Pulse Ox 98.6 F 86 18 106/75 98 06/10/19 11:32 06/10/19 11:32 06/10/19 11:32 06/10/19 11:32 06/10/19 11:32 Preop Diagnosis: Right hydronephrosis/UTI Proposed Procedure: Operation Date: 06/10/19 14:35 Proposed Procedures p Cystoscopy(Not Applicable) - Pj Poon MD s Ureteral Stent Placement(Right) - Pj Poon MD s Flexible Ureteroscopy(Not Applicable) - Pj Poon MD Last Intake: 11:00 Social: Social History: Tobacco Packs per day: 1/2 Pack years: 20+ Exam: Pre-Anes Outpt Exam: alert, oriented x 3, clear to auscultation bilaterally and regular rate & rhythm Airway: Submandibular: WNL Cervical ROM: WNL MP: 2 Dentition: False Pulmonary: Pulmonary: COPD CV/HEM: CV/HEM: Anemia, Angina (Stable), CHF and HTN Comments: rx'd 1.5y [place] 16 Sylvia-last 01/12 no changes/no use of NTG : : UTI Comments: bilateralhydronephrosis Metabolic: Metabolic: DM and Thyroid Comments: treated x 1.5y treated x 40y, normally 120-200 Neuropsych: Neuropsych: Depression Anesthetic Plan: ASA status: 3 Anesthesia: General Meds/Allergies Current Medications: Current Medications Generic Name Dose Route Start Last Admin Trade Name Freq PRN Reason Stop Dose Admin Acetaminophen 650 mg 06/08/19 21:28 06/09/19 20:12 Tylenol PO 650 mg PRN KEVIN Administration Lipase/Protease/Am ylase 1 each 06/09/19 08:00 06/10/19 12:34 Zenpep PO Not Given TIDWM KEVIN Aripiprazole 5 mg 06/09/19 09:00 06/10/19 08:18 Abilify PO 5 mg DAILY KEVIN Administration Atorvastatin Calci um 20 mg 06/08/19 21:45 06/09/19 21:32 Lipitor PO 20 mg BEDTIME KEVIN Administration Bupropion HCl 100 mg 06/09/19 09:00 06/10/19 08:19 Wellbutrin Sr (1 2 Hr) PO 100 mg DAILY KEVIN Administration Clotrimazole 1 applic 06/09/19 09:00 06/10/19 08:24 Lotrimin TOPICAL 1 applic BID KEVIN Administration Enoxaparin Sodium 40 mg 06/09/19 17:00 06/09/19 16:56 Lovenox SUBCUT Not Given Q24H KEVIN Famotidine 20 mg 06/09/19 17:00 06/10/19 04:19 Pepcid Inj IVP 20 mg Q12H KEVIN Administration Sodium Chloride 1,000 mls @ 125 m ls/hr 06/08/19 21:28 06/10/19 12:29 Sodium Chloride 0.9% IV 125 mls/hr .Q8H KEVIN Administration Piperacillin Sod/T azobactam 50 mls @ 12.5 mls /hr 06/08/19 22:00 06/10/19 13:56 Sod 3.375 gm/ So dium Chloride IV Infused Q8H [facility] Infusion Protocol Caspofungin 50 mg/ Sodium 250 mls @ 250 mls /hr 06/10/19 10:30 06/10/19 12:28 Chloride IV 250 mls/hr Q24H KEVIN Administration Insulin Aspart 0 unit 06/10/19 12:00 06/10/19 12:34 Novolog SUBCUT Not Given WM&BEDTIME KEVIN Protocol Insulin Glargine 25 unit 06/08/19 21:28 06/09/19 22:03 Lantus SUBCUT Not Given BEDTIME KEVIN Levothyroxine Sodi um 75 mcg 06/09/19 09:00 06/10/19 08:18 Synthroid PO 75 mcg DAILY KEVIN Administration Mirtazapine 15 mg 06/09/19 21:00 06/09/19 21:32 Remeron PO 15 mg BEDTIME KEVIN Administration Sertraline HCl 100 mg 06/08/19 21:28 06/09/19 21:32 Zoloft PO 100 mg Q24H KEVIN Administration Tamsulosin HCl 0.4 mg 06/09/19 09:00 06/10/19 08:18 Flomax PO 0.4 mg BID KEVIN Administration PFSH Anesthesia PFSH: Medical History (Updated 06/10/19 @ 13:23 by Pj Poon MD) ASHD (arteriosclerotic heart disease) Bilateral hydronephrosis Bladder wall thickening Carotid stenosis, bilateral Chronic cystitis COPD (chronic obstructive pulmonary disease) Diabetes Essential hypertension Hydronephrosis of right kidney Hyperlipidemia PAD (peripheral artery disease) Surgical History S/P amputation of foot S/P below knee amputation S/P cataract extraction S/P tubal ligation Status post bilateral above knee amputation Status post tubal ligation Family History Family/Other Psychiatric illness CAD (coronary artery disease) Diabetes Cancer Stroke Social History Smoking and tobacco status: current every day smoker cigarettes Packs smoked per day: 0.5 Alcohol intake: never Housing: Detention Marital status: / Current occupational status: disabled Data Anesthesia CBC & Chem 7: 06/10/19 09:27 06/10/19 09:27 Other Labs: Laboratory Results - last 48 hr 06/08/19 06/08/19 06/08/19 17:20 17:20 17:30 WBC 25.0 H RBC 3.53 L Hgb 8.1 L Hct 29.1 L MCV 82.4 MCH 22.9 L MCHC 27.8 L RDW 19.9 H Plt Count 537 H MPV 10.3 Neut % (Auto) 80.9 Lymph % (Auto) 4.9 [place] % (Auto) 11.9 Eos % (Auto) 0.9 Baso % (Auto) 0.4 Neut # (Auto) 20.2 H Lymph # (Auto) 1.2 [place] # (Auto) 3.0 H Eos # (Auto) 0.2 Baso # (Auto) 0.1 Nucleated RBC % (auto) 0.1 Nucleated RBCs # 0.0 Sodium 129 L Potassium 5.5 H Chloride 101 Carbon Dioxide 12 L Anion Gap 21.5 H BUN 51 H Creatinine 1.6 H GFR Calculation 33.2 L Glucose 338 H POC Glucose Calculated Osmolality 280 L Lactate Calcium 8.9 Iron TIBC % Saturation Unsat Iron Binding Total Bilirubin 0.2 AST 15 ALT 20 Alkaline Phosphatase 180 H Total Protein 7.3 Albumin 2.6 L Globulin 4.7 H Lipase 39 Procalcitonin Urine Color Urine Appearance Urine pH Ur Specific [employer] [place] Urine Protein Urine Glucose (UA) Urine Ketones Urine Blood Urine Nitrate Urine Bilirubin Urine Urobilinogen Ur Leukocyte Esterase Urine RBC Urine WBC Ur Squamous Epith Cells Urine Bacteria Urine Mucus Urine Yeast Influenza Type A Ag Negative POC Influenza B Ag Negative 06/08/19 06/08/19 06/08/19 17:37 18:15 22:21 WBC RBC Hgb Hct MCV MCH MCHC RDW Plt Count MPV Neut % (Auto) Lymph % (Auto) [place] % (Auto) Eos % (Auto) Baso % (Auto) Neut # (Auto) Lymph # (Auto) [place] # (Auto) Eos # (Auto) Baso # (Auto) Nucleated RBC % (auto) Nucleated RBCs # Sodium Potassium Chloride Carbon Dioxide Anion Gap BUN Creatinine GFR Calculation Glucose POC Glucose 241 Calculated Osmolality Lactate 1.7 Calcium Iron TIBC % Saturation Unsat Iron Binding Total Bilirubin AST ALT Alkaline Phosphatase Total Protein Albumin Globulin Lipase Procalcitonin Urine Color Yellow Urine Appearance Hazy A Urine pH 5 Ur Specific [employer] [place] 1.015 Urine Protein 1+ H Urine Glucose (UA) Trace H Urine Ketones Negative Urine Blood 3+ H Urine Nitrate Negative Urine Bilirubin Neg Urine Urobilinogen Norm Ur Leukocyte Esterase 2+ H Urine RBC 25-40 H Urine WBC Too numerous to cnt H Ur Squamous Epith Cells 0-4 H Urine Bacteria 2+ H Urine Mucus 1+ Urine Yeast 1+ H Influenza Type A Ag POC Influenza B Ag 06/09/19 06/09/19 06/09/19 04:54 04:54 04:54 WBC 21.4 H RBC 3.34 L Hgb 7.7 L Hct 27.2 L MCV 81.4 MCH 23.1 L MCHC 28.3 L RDW 19.6 H Plt Count 403 H MPV 10.4 Neut % (Auto) 79.7 Lymph % (Auto) 5.2 [place] % (Auto) 12.6 Eos % (Auto) 1.2 Baso % (Auto) 0.4 Neut # (Auto) 17.0 H Lymph # (Auto) 1.1 [place] # (Auto) 2.7 H Eos # (Auto) 0.3 Baso # (Auto) 0.1 Nucleated RBC % (auto) 0 Nucleated RBCs # 0.0 Sodium 140 Potassium 4.4 Chloride 112 H Carbon Dioxide 17 L Anion Gap 15.4 BUN 36 H Creatinine 1.1 H GFR Calculation 51.2 L Glucose 178 H POC Glucose Calculated Osmolality 292 Lactate Calcium 8.0 L Iron 14 L TIBC 196 % Saturation 7.1 L Unsat Iron Binding 182 Total Bilirubin 0.2 AST 12 ALT 13 Alkaline Phosphatase 162 H Total Protein 6.5 L Albumin 2.0 L Globulin 4.5 Lipase Procalcitonin 2.58 H Urine Color Urine Appearance Urine pH Ur Specific [employer] Urine Protein Urine Glucose (UA) Urine Ketones Urine Blood Urine Nitrate Urine Bilirubin Urine Urobilinogen Ur Leukocyte Esterase Urine RBC Urine WBC Ur Squamous Epith Cells Urine Bacteria Urine Mucus Urine Yeast Influenza Type A Ag POC Influenza B Ag 06/09/19 06/10/19 06/10/19 21:28 06:14 09:27 WBC RBC Hgb Hct MCV MCH MCHC RDW Plt Count MPV Neut % (Auto) Lymph % (Auto) [place] % (Auto) Eos % (Auto) Baso % (Auto) Neut # (Auto) Lymph # (Auto) [place] # (Auto) Eos # (Auto) Baso # (Auto) Nucleated RBC % (auto) Nucleated RBCs # Sodium 145 Potassium 4.2 Chloride 114 H Carbon Dioxide 17 L Anion Gap 18.2 BUN 20 Creatinine 0.9 GFR Calculation 64.5 L Glucose 82 POC Glucose 76 89 Calculated Osmolality 296 H Lactate Calcium 8.8 Iron TIBC % Saturation Unsat Iron Binding Total Bilirubin 0.3 AST 11 ALT 11 Alkaline Phosphatase 187 H Total Protein 7.3 Albumin 2.5 L Globulin 4.8 H Lipase Procalcitonin Urine Color Urine Appearance Urine pH Ur Specific [employer] Urine Protein Urine Glucose (UA) Urine Ketones Urine Blood Urine Nitrate Urine Bilirubin Urine Urobilinogen Ur Leukocyte Esterase Urine RBC Urine WBC Ur Squamous Epith Cells Urine Bacteria Urine Mucus Urine Yeast Influenza Type A Ag POC Influenza B Ag 06/10/19 06/10/19 09:27 11:30 WBC 25.3 H RBC 3.66 L Hgb 8.6 L Hct 29.6 L MCV 80.9 L MCH 23.5 L MCHC 29.1 L RDW 19.9 H Plt Count 546 H MPV 10.2 Neut % (Auto) 84.2 Lymph % (Auto) 3.9 [place] % (Auto) 9.2 Eos % (Auto) 1.4 Baso % (Auto) 0.5 Neut # (Auto) 21.3 H Lymph # (Auto) 1.0 [place] # (Auto) 2.3 H Eos # (Auto) 0.4 Baso # (Auto) 0.1 Nucleated RBC % (auto) 0 Nucleated RBCs # 0.0 Sodium Potassium Chloride Carbon Dioxide Anion Gap BUN Creatinine GFR Calculation Glucose POC Glucose 129 Calculated Osmolality Lactate Calcium Iron TIBC % Saturation Unsat Iron Binding Total Bilirubin AST ALT Alkaline Phosphatase Total Protein Albumin Globulin Lipase Procalcitonin Urine Color Urine Appearance Urine pH Ur Specific [employer] Urine Protein Urine Glucose (UA) Urine Ketones Urine Blood Urine Nitrate Urine Bilirubin Urine Urobilinogen Ur Leukocyte Esterase Urine RBC Urine WBC Ur Squamous Epith Cells Urine Bacteria Urine Mucus Urine Yeast Influenza Type A Ag POC Influenza B Ag Micro: Microbiology 06/10/19 09:33 Blood Culture - Preliminary Blood SPECIMEN COLLECTED 06/10/19 09:27 Blood Culture - Preliminary Blood SPECIMEN COLLECTED 06/08/19 17:37 Urine Culture - Preliminary Urine Catheterized Yeast species 06/08/19 17:20 Blood Culture - Preliminary Blood NEGATIVE TO DATE 06/08/19 18:15 Blood Culture - Preliminary Blood NEGATIVE TO DATE 06/09/19 13:05 C.difficile Toxin B Gene (PCR) - Final Stool Cardiac Studies: No Data to Display
[2019-06-10] MEDS: sodium chloride 0.9% 1,000 ML 30 ML IV (14:45)
[2019-06-10] MEDS: iohexol 300 mg/mL 50 mL Btl (OR ONLY) XX (15:13)
--- NOTE | 2019-06-10 15:13 | PC.SOCIAL ---
Patient was given the Medicare BPMI beneficiary letter. Original is signed and placed in the chart.
--- NOTE | 2019-06-10 15:32 | PM.OP ---
Operative Report Date of procedure: June 10, 2019 Pre-op Diagnosis: Bilateral hydronephrosis/UTI Post-op diagnosis: same Procedure Done: Cystoscopy, RIGHT retrograde ureteropyelogram BILATERAL ureteral stent placement (7 [place] by 26 cm double-pigtail without string. Implants: Bilateral ureteral stents Surgeon: Ayah Anesthesia: General Estimated blood loss: None Urine output: Not measured Complications: None Findings: Purulent fluid in the bladder and in both kidneys with stent placement. On the right side there appeared to be a normal distal ureter with dilation at the crossing of the vessels. No retrograde performed on the left. Condition: stable Disposition: PACU Brief History: Mrs. Guidry is a very pleasant 58-year-old white female who urinary tract infection with well-documented funguria. Has had evidence of CHRONIC CYSTITIS and apparently some intermittent bilateral ureteral obstruction related to that with no clear evidence on multiple CT scans of intraluminal process otherwise in either ureter. Recently admitted with septic picture and worsening of hydronephrosis bilaterally. I was consulted for further evaluation. Recommended bilateral stent placement. Procedure: After emergent evaluation examination and obtaining of informed consent she was taken to the operating suite on 06/10/2019 where general anesthesia was administered without difficulty after appropriate timeout was performed, SCDs confirmed to be functioning, preoperative antibiotics administered, beta-duarte protocol confirmed. She was prepped and draped in supine position pain careful attention to avoiding pressure points. She is status post bilateral AKA. No stirrups. 21 [place] cystoscope with 30 degree lens was introduced into the urethral meatus and advanced into the bladder under videoscopy. There was a large amount of cloudy purulent urine drained. The bladder was rinsed to help visualization. The left ureteral orifice and the right ureter orifice were both identified. While the changes in the bladder were consistent with chronic cystitis it did not appear to be architecturally abnormal. An 8 [place] cone-tip catheter was intubated into the right ureteral orifice and a right retrograde ureteral pyelogram showed fairly normal caliber and course of the right ureter to the crossing of the pelvic vessels at which point the caliber became more dilated. No obvious filling defect was seen. A flexible tip guidewire was then advanced up the right ureter easily bypassing this point and curling in the area of the renal pelvis. A 7 [place] by 26 cm double-pigtail stent was advanced over the guidewire through the cystoscope into appropriate position as confirmed via fluoroscopy and cystoscopy. It was decided to forego retrograde on the left side. The flexible tip guidewire was then advanced up the left ureter into the area of the renal pelvis and a 7 [place] by 26 cm double-pigtail stent was advanced in similar fashion. It needed to be retracted slightly distally for appropriate positioning. The bladder was drained with a Morales catheter to ensure adequate draining of the upper urinary tracts. I suspect that chronic poorly emptying bladder is at least to some degree contributing to her chronic cystitis and bilateral hydronephrosis. She tolerated procedure well without complications and was awakened in the operating room and returned to the care of room in stable condition.
[2019-06-10 16:35] LABS: Glucose Point of Care 105 mg/dL (70-110)
[2019-06-10] MEDS: mirtazapine 15 mg Tablet PO (20:43)
[2019-06-10] MEDS: atorvastatin 40 mg Tablet 20 MG PO (20:43)
[2019-06-10] MEDS: sertraline 100 mg Tablet PO (20:44)
[2019-06-10 21:42] LABS: Glucose Point of Care 106 mg/dL (70-110)
[2019-06-11] VITALS (12 sets, daily range): BP systolic 123–159; BP diastolic 62–81; PULSE 72–96; RESP 14–20; TEMP 36.6–37.4; O2SAT 93–98
[2019-06-11] MEDS: famotidine 20 mg/2 mL INJ IVP ×2 (04:31→18:53)
[2019-06-11 05:24] LABS: Basophils # 0.1 10^3/uL (0.0-0.1); Basophils % 0.5 %; Eosinophils # 0.5 10^3/uL (0.0-0.8); Eosinophils % 2.5 %; Hematocrit 27.7 % (37.0-47.0); Hemoglobin 7.9 g/dL (11.5-15.3); Lymphocytes # 1.5 10^3/uL (0.8-4.8); Lymphocytes % 7.2 %; Mean Corpuscular HGB Conc 28.5 g/dL (30.0-36.0); Mean Corpuscular Hemoglobin 23.4 pg (28.0-34.0); Mean Platelet Volume 10.4 fL (7.4-10.4); Monocytes # 2.3 10^3/uL (0.2-0.9); Monocytes % 11.1 %; Neutrophils # 16.2 10^3/uL (1.8-7.7); Neutrophils % 77.5 %; Nucleated Red Blood Cells % 0 %; Platelet Count 540 10^3/cmm (130-400); Red Blood Count 3.38 10^6/uL (4.1-5.3); Red Cell Distribution Width 19.9 % (12.1-15.1)
[2019-06-11 05:40] LABS: Alanine Aminotransferase 9 U/L (0-33); Albumin Level 2.3 g/dL (3.5-5.2); Alkaline Phosphatase 159 IU/L (35-105); Anion Gap 18.9 (5-19); Aspartate Amino Transferase 13 U/L (0-32); Blood Urea Nitrogen 17 mg/dL (6-20); Calcium 8.8 mg/dL (8.5-10.5); Carbon Dioxide 15 mmol/L (22-29); Chloride 115 mmol/L (98-107); Globulin 4.1 g/dL (1.3-4.6); Glomerular Filtration Rate 57.1 mL/min (90-130); Glucose 71 mg/dL (65-115); Osmolality Calculated 295 mOsm/kg (285-295); Potassium 3.9 mmol/L (3.5-5.1); Sodium 145 mmol/L (136-145); Total Bilirubin 0.2 mg/dL (0.15-1.2); Total Protein 6.4 g/dL (6.6-8.7)
[2019-06-11 06:49] LABS: Glucose Point of Care 80 mg/dL (70-110)
[2019-06-11] MEDS: sodium chloride 0.9% 1,000 ML 125 ML IV ×2 (09:58→15:55)
[2019-06-11] MEDS: piperacillin-tazobactam 3.375 GM in sodium chloride 0.9% (plus) 50 ML IV ×3 (09:59→22:55)
[2019-06-11] MEDS: tamsulosin 0.4 mg Capsule PO ×2 (10:00→17:11)
[2019-06-11] MEDS: levothyroxine 150 mcg Tablet 75 MCG PO (10:00)
[2019-06-11] MEDS: buPROPion SR (12 HR) 100 mg Tablet PO (10:00)
[2019-06-11] MEDS: ARIPiprazole 10 mg Tablet 5 MG PO (10:01)
[2019-06-11] MEDS: clotrimazole 1% cream 30 gm 1 APPLIC TOPICAL (10:01)
[2019-06-11] MEDS: lipase-protease-amylase Capsule 1 EACH PO ×3 (10:06→17:11)
--- NOTE | 2019-06-11 10:40 | PM.PN ---
Subjective Subjective: Interval history: No acute events overnight. Patient's has been afebrile since 8 PM last night. In last 24-hour T-max 100.3 at 8 PM last night. Last 24 hours patient underwent bilateral ureteral stent placement with Dr. Poon which he tolerated well. Urine output and labs noted. Vitals/I&O/Wt Last Vital Signs Temp 98.5 F 06/11/19 08:00 Pulse 96 06/11/19 09:37 Resp 20 H 06/11/19 08:00 BP 151/76 06/11/19 08:00 Pulse Ox 93 06/11/19 09:37 06/10/19 06/11/19 06/11/19 22:59 06:59 14:59 Intake Total 1490 / 2780 1050 / 3830 120 / 120 Output Total 0 / 0 1150 / 1150 Balance 1490 / 2780 -100 / 2680 120 / 120 Physical Exam Narrative: EXAM NARRATIVE: General: No acute distress, AO x3, pallor present HEENT: PERRLA, pupils bilaterally equal and reactive Chest: Normal vesicular breath sounds, no added sounds, equal good air entry bilaterally CVS: S1-S2 regular, no murmurs, no tachycardia, no gallops, no rubs Abdomen: Soft, tenderness on deep palpation pain left middle quadrant, renal angle tenderness present,, no organomegaly, bowel sounds present Neuro: No focal deficits, no facial deformity, AO x3, power 5/5 in all limbs Urinary Catheter Management^: Morales: Cath Placed During This Visit: yes Reason for Continuing Indwelling Catheter: Acute Urinary Retention or Obstruction Urinary Catheter Date of Insertion: 06/10/19 Urinary Catheter Time of Insertion: 15:21 Data : 06/11/19 04:27 06/11/19 04:27 Micro: Microbiology 06/10/19 09:33 Blood Culture - Preliminary Blood NEGATIVE TO DATE 06/10/19 09:27 Blood Culture - Preliminary Blood NEGATIVE TO DATE 06/08/19 17:37 Urine Culture - Preliminary Urine Catheterized Yeast species A&P Assessment and plan (1) Sepsis: Status: Acute Code(s): A41.9 - Sepsis, unspecified organism (2) Urinary tract infection: Status: Acute Code(s): N39.0 - Urinary tract infection, site not specified (3) Candidiasis of vagina: Status: Acute Code(s): B37.3 - Candidiasis of vulva and vagina (4) Anemia: Status: Acute Code(s): D64.9 - Anemia, unspecified (5) Acute kidney injury: Status: Acute Code(s): N17.9 - Acute kidney failure, unspecified (6) Chronic cystitis: Status: Acute Code(s): N30.20 - Other chronic cystitis without hematuria (7) Hyponatremia: Status: Acute Code(s): E87.1 - Hypo-osmolality and hyponatremia (8) Protein calorie malnutrition: Status: Acute Code(s): E46 - Unspecified protein-calorie malnutrition Additional A&P Information Sepsis secondary to UTI/pyelonephritis: Sepsis criteria met with fever, tachycardia, leukocytosis, hypotension, On review of her old records patient did have a history of UTI with Klebsiella earlier this year with multiple UTIs with Aida glabrata in 2019. Urine was negative for yeast on her last admission. 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 C. difficile negative. Urine cultures growing yeast again. Have asked lab to do speciation and sensitivity for further treatment. Start patient on caspofungin 50 mg IV every 24 hour. She had already received 70 mg bolus on admission. Continue with Zosyn at current dose. If patient continues to remain afebrile can plan to discontinue Zosyn tomorrow and monitor for 1 more day. Postop day 1 for bilateral ureteral stent: Greatly appreciate Dr. Poon's recommendations. Patient would most likely need caspofungin for 7 days from June 09. Have discussed with pharmacy for now we have 3-day supply of caspofungin. Pharmacy will try to get more vials for further treatment. On prior admission there was some concern with Aida being more the colonizers for which patient would need a biopsy to confirm. We will hold off on aspirin and Plavix for now in case patient would need biopsy in coming days. If patient is not going for the repeat procedure can restart aspirin Plavix in 3 days. Ischemic cardiomyopathy: Last echo done in May 2018 shows an EF of 35 to 40% with grade 3 diastolic dysfunction with moderate hypokinesis of septum, anteroseptal and apical segments. Patient looks euvolemic at present. We will decrease the IV fluids from 125 to 75 cc/h. Monitor for fluid overload. We will start patient back on metoprolol at home dose 25 twice daily. Given the chance that patient may go into septic shock will hold off on starting on Imdur for now. Systolic blood pressures continue to remain over 140 will reintroduce Imdur tomorrow. Anemia: Hemoglobin down to 7.9 today. TIBC concerning for iron deficiency anemia. Because of history of CAD will transfuse patient 1 unit of PRBC today. We will plan to keep hemoglobin over 8. Acute kidney injury with hyperkalemia &metabolic acidosis: Resolved. Baseline creatinine is 1-1.2 Chronic diarrhea: C. difficile negative x2 in this admission. Continue with pancrelipase. If patient continues to have diarrhea can give Imodium. Type 2 diabetes: Sliding scale at moderate dose. Continue with chronic medications like Remeron pancrelipase, levothyroxine, Flomax, pregabalin at home dose. Patient is DNR/DNI Low potassium cardiac diet Famotidine for PUD prophylaxis Lovenox for DVT prophylaxis. Attestations Medical Necessity Statement*: Sepsis because of Aida pyelonephritis Time Spent in Patient Care: Greater than 35 minutes Coding Level of Care Code Acute [employer] Supervisor for g Fwd Diagnoses Sepsis A41.9 Urinary tract infection N39.0 Candidiasis of vagina B37.3 Anemia D64.9 Acute kidney injury N17.9 Chronic cystitis N30.20 Hyponatremia E87.1 Protein calorie malnutrition E46
[2019-06-11 11:32] LABS: Glucose Point of Care 96 mg/dL (70-110)
[2019-06-11] MEDS: sodium chloride 0.9% 100 ML 10 ML (12:01)
--- NOTE | 2019-06-11 14:31 | PC.SOCIAL ---
Pg 2 IMM Explained to pt Pg 2 IMM. Pt verbally understands. No questions voiced. Provided pt a signed copy & left on pt's bedside table. Signed, dated, & timed a signed copy & placed in chart.
[2019-06-11 16:31] LABS: Glucose Point of Care 120 mg/dL (70-110)
[2019-06-11] MEDS: metoprolol tartrate 25 mg Tablet PO (17:11)
[2019-06-11] MEDS: pregabalin 100 mg Capsule PO (17:11)
[2019-06-11] MEDS: mirtazapine 15 mg Tablet PO (20:57)
[2019-06-11] MEDS: sertraline 100 mg Tablet PO (20:57)
[2019-06-11] MEDS: atorvastatin 40 mg Tablet 20 MG PO (20:57)
[2019-06-11 21:35] LABS: Glucose Point of Care 123 mg/dL (70-110)
[2019-06-12] VITALS (7 sets, daily range): BP systolic 121–173; BP diastolic 61–82; PULSE 59–75; RESP 16–20; TEMP 36.3–37; O2SAT 93–96
[2019-06-12] MEDS: famotidine 20 mg/2 mL INJ IVP ×2 (05:06→17:42)
[2019-06-12 06:16] LABS: Basophils # 0.2 10^3/uL (0.0-0.1); Basophils % 1.2 %; Eosinophils # 0.9 10^3/uL (0.0-0.8); Eosinophils % 6.8 %; Hematocrit 29.1 % (37.0-47.0); Hemoglobin 8.5 g/dL (11.5-15.3); Lymphocytes # 1.7 10^3/uL (0.8-4.8); Lymphocytes % 12.7 %; Mean Corpuscular HGB Conc 29.2 g/dL (30.0-36.0); Mean Corpuscular Hemoglobin 24.2 pg (28.0-34.0); Mean Corpuscular Volume 82.9 fL (81-99); Mean Platelet Volume 9.9 fL (7.4-10.4); Monocytes # 1.4 10^3/uL (0.2-0.9); Monocytes % 10.6 %; Neutrophils # 8.8 10^3/uL (1.8-7.7); Neutrophils % 67.4 %; Nucleated Red Blood Cells % 0 %; Platelet Count 497 10^3/cmm (130-400); Red Blood Count 3.51 10^6/uL (4.1-5.3); Red Cell Distribution Width 19.8 % (12.1-15.1)
[2019-06-12 06:37] LABS: Alanine Aminotransferase 7 U/L (0-33); Albumin Level 2.1 g/dL (3.5-5.2); Alkaline Phosphatase 171 IU/L (35-105); Anion Gap 14.8 (5-19); Aspartate Amino Transferase 12 U/L (0-32); Blood Urea Nitrogen 10 mg/dL (6-20); Calcium 8.3 mg/dL (8.5-10.5); Carbon Dioxide 20 mmol/L (22-29); Chloride 114 mmol/L (98-107); Globulin 4.2 g/dL (1.3-4.6); Glomerular Filtration Rate 73.9 mL/min (90-130); Glucose 90 mg/dL (65-115); Osmolality Calculated 296 mOsm/kg (285-295); Potassium 3.8 mmol/L (3.5-5.1); Sodium 145 mmol/L (136-145); Total Bilirubin 0.2 mg/dL (0.15-1.2); Total Protein 6.3 g/dL (6.6-8.7)
[2019-06-12 06:46] LABS: Glucose Point of Care 88 mg/dL (70-110)
[2019-06-12] MEDS: pregabalin 100 mg Capsule PO ×2 (10:00→17:43)
[2019-06-12] MEDS: levothyroxine 150 mcg Tablet 75 MCG PO (10:00)
[2019-06-12] MEDS: buPROPion SR (12 HR) 100 mg Tablet PO (10:05)
[2019-06-12] MEDS: tamsulosin 0.4 mg Capsule PO ×2 (10:05→17:44)
[2019-06-12] MEDS: metoprolol tartrate 25 mg Tablet PO ×2 (10:05→17:44)
[2019-06-12] MEDS: lipase-protease-amylase Capsule 1 EACH PO ×3 (10:07→17:48)
--- NOTE | 2019-06-12 10:35 | PM.PN ---
Subjective Subjective: Interval history: No acute events overnight patient has remained afebrile for more than 36 hours now. At present patient denies of having any nausea, vomiting, headache, palpitations. In last 24 hours patient received 1 unit of PRBC transfusion. Urine output improving. Labs and output noted. Vitals/I&O/Wt Last Vital Signs Temp 98.1 F 06/12/19 07:54 Pulse 71 06/12/19 07:54 Resp 18 06/12/19 07:54 BP 166/82 06/12/19 07:54 Pulse Ox 93 06/12/19 07:54 06/11/19 06/12/19 06/12/19 22:59 06:59 14:59 Intake Total 1143.75 / 1663.75 240 / 240 Output Total 400 / 1050 950 / 2000 Balance 743.75 / 613.75 -950 / -336.25 240 / 240 Weight last 48 hrs Weight 70.534 kg Weight 70.534 kg Physical Exam Narrative: EXAM NARRATIVE: General: No acute distress, AO x3, pallor present HEENT: PERRLA, pupils bilaterally equal and reactive Chest: Normal vesicular breath sounds, no added sounds, equal good air entry bilaterally CVS: S1-S2 regular, no murmurs, no tachycardia, no gallops, no rubs Abdomen: Soft, non tender, no organomegaly, bowel sounds present Neuro: No focal deficits, no facial deformity, AO x3, power 5/5 in all limbs Urinary Catheter Management^: Morales: Cath Placed During This Visit: yes Reason for Continuing Indwelling Catheter: Acute Urinary Retention or Obstruction Urinary Catheter Date of Insertion: 06/10/19 Urinary Catheter Time of Insertion: 15:21 Data : 06/12/19 05:30 06/12/19 05:30 Micro: Microbiology 06/08/19 17:37 Urine Culture - Preliminary Urine Catheterized Aida glabrata 06/10/19 09:33 Blood Culture - Preliminary Blood NEGATIVE TO DATE 06/10/19 09:27 Blood Culture - Preliminary Blood NEGATIVE TO DATE A&P Assessment and plan (1) Sepsis: Status: Acute Code(s): A41.9 - Sepsis, unspecified organism (2) Urinary tract infection: Status: Acute Code(s): N39.0 - Urinary tract infection, site not specified (3) Candidiasis of vagina: Status: Acute Code(s): B37.3 - Candidiasis of vulva and vagina (4) Anemia: Status: Acute Code(s): D64.9 - Anemia, unspecified (5) Acute kidney injury: Status: Acute Code(s): N17.9 - Acute kidney failure, unspecified (6) Chronic cystitis: Status: Acute Code(s): N30.20 - Other chronic cystitis without hematuria (7) Hyponatremia: Status: Acute Code(s): E87.1 - Hypo-osmolality and hyponatremia (8) Protein calorie malnutrition: Status: Acute Code(s): E46 - Unspecified protein-calorie malnutrition Additional A&P Information Sepsis secondary to UTI/pyelonephritis: Sepsis criteria met with fever, tachycardia, leukocytosis, hypotension, On review of her old records patient did have a history of UTI with Klebsiella earlier this year with multiple UTIs with Aida glabrata in 2019. Urine was negative for yeast on her last admission. 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 C. difficile negative. Urine cultures growing yeast again. Have asked lab to do speciation and sensitivity for further treatment. C/w caspofungin 50 mg IV every 24 hour. Most likley need for 7 days from 06/10/2019 when stent was placed. D/c Zosyn as urine culture not growing any bacteria. Will monitor. WBC trending now and pt afebrile post procedure. Postop day 2 for bilateral ureteral stent: Greatly appreciate Dr. Poon's recommendations. Patient would most likely need caspofungin for 7 days from June 09. Have discussed with pharmacy for now we have 3-day supply of caspofungin. Pharmacy will try to get more vials for further treatment. On prior admission there was some concern with Aida being more the colonizers for which patient would need a biopsy to confirm. We will hold off on aspirin and Plavix for now in case patient would need biopsy in coming days. If patient is not going for the repeat procedure can restart aspirin Plavix in 3 days. Ischemic cardiomyopathy: Last echo done in May 2018 shows an EF of 35 to 40% with grade 3 diastolic dysfunction with moderate hypokinesis of septum, anteroseptal and apical segments. Patient looks euvolemic at present. Fluid at 75 cc/hr. Sodium 145 today and BS on lower side so will change fluid to D5NS Monitor for fluid overload. We will start patient back on metoprolol at home dose 25 twice daily. HTN: BP elevated now. Will start on Imdur at 1/2 home dose. Given the chance that patient may go into septic shock. Imdur 15 mg PO QD Anemia: Hb 8.5 today. S/p 1 unit transfusion. C/w PO iron. We will plan to keep hemoglobin over 8. Acute kidney injury with hyperkalemia &metabolic acidosis: Resolved. Baseline creatinine is 1-1.2 Chronic diarrhea: C. difficile negative x2 in this admission. Continue with pancrelipase. If patient continues to have diarrhea can give Imodium. Type 2 diabetes: Sliding scale at moderate dose. Continue with chronic medications like Remeron pancrelipase, levothyroxine, Flomax, pregabalin at home dose. Patient is DNR/DNI Low potassium cardiac diet Famotidine for PUD prophylaxis Lovenox for DVT prophylaxis. Attestations Medical Necessity Statement*: Sepsis from aida UTI Time Spent in Patient Care: Greater than 35 minutes Coding Level of Care Code Acute [employer] for [facility] Fwd Diagnoses Sepsis A41.9 Urinary tract infection N39.0 Candidiasis of vagina B37.3 Anemia D64.9 Acute kidney injury N17.9 Chronic cystitis N30.20 Hyponatremia E87.1 Protein calorie malnutrition E46
[2019-06-12 11:48] LABS: Glucose Point of Care 137 mg/dL (70-110)
[2019-06-12] MEDS: ARIPiprazole 10 mg Tablet 5 MG PO (11:49)
[2019-06-12] MEDS: dextrose 5%-sod chloride 0.9% 1,000 ML 75 ML IV ×2 (12:03→23:52)
[2019-06-12] MEDS: piperacillin-tazobactam 3.375 GM in sodium chloride 0.9% (plus) 50 ML IV ×2 (12:04→19:33)
[2019-06-12 16:21] LABS: Glucose Point of Care 156 mg/dL (70-110)
[2019-06-12] MEDS: isosorbide mononitrate ER 30 mg Tablet 15 MG PO (17:45)
[2019-06-12] MEDS: atorvastatin 40 mg Tablet 20 MG PO (20:26)
[2019-06-12] MEDS: mirtazapine 15 mg Tablet PO (20:26)
[2019-06-12] MEDS: sertraline 100 mg Tablet PO (20:26)
[2019-06-12 22:32] LABS: Glucose Point of Care 237 mg/dL (70-110)
[2019-06-13] MEDS: piperacillin-tazobactam 3.375 GM in sodium chloride 0.9% (plus) 50 ML IV ×2 (02:48→11:36)
[2019-06-13 04:00] VITALS: BP 144/65; PULSE 59; RESP 20; TEMP 36.4; O2SAT 91
[2019-06-13] MEDS: famotidine 20 mg/2 mL INJ IVP (04:21)
[2019-06-13 06:58] LABS: Glucose Point of Care 223 mg/dL (70-110)
[2019-06-13 07:36] LABS: Basophils # 0.1 10^3/uL (0.0-0.1); Basophils % 0.8 %; Eosinophils # 0.8 10^3/uL (0.0-0.8); Eosinophils % 6.5 %; Hematocrit 30.2 % (37.0-47.0); Hemoglobin 8.7 g/dL (11.5-15.3); Lymphocytes # 1.1 10^3/uL (0.8-4.8); Lymphocytes % 9.4 %; Mean Corpuscular HGB Conc 28.8 g/dL (30.0-36.0); Mean Corpuscular Hemoglobin 24.3 pg (28.0-34.0); Mean Corpuscular Volume 84.4 fL (81-99); Mean Platelet Volume 9.9 fL (7.4-10.4); Monocytes # 1.1 10^3/uL (0.2-0.9); Monocytes % 9.5 %; Neutrophils # 8.5 10^3/uL (1.8-7.7); Neutrophils % 71.9 %; Nucleated Red Blood Cells % 0.2 %; Platelet Count 460 10^3/cmm (130-400); Red Blood Count 3.58 10^6/uL (4.1-5.3); Red Cell Distribution Width 20.3 % (12.1-15.1); White Blood Count 11.9 10^3/uL (4.0-10.0)
[2019-06-13 07:53] LABS: Alanine Aminotransferase 8 U/L (0-33); Alkaline Phosphatase 166 IU/L (35-105); Anion Gap 15.5 (5-19); Aspartate Amino Transferase 14 U/L (0-32); Blood Urea Nitrogen 8 mg/dL (6-20); Calcium 7.9 mg/dL (8.5-10.5); Carbon Dioxide 19 mmol/L (22-29); Chloride 114 mmol/L (98-107); Globulin 3.8 g/dL (1.3-4.6); Glomerular Filtration Rate 73.9 mL/min (90-130); Glucose 224 mg/dL (65-115); Osmolality Calculated 303 mOsm/kg (285-295); Potassium 3.5 mmol/L (3.5-5.1); Sodium 145 mmol/L (136-145); Total Bilirubin 0.2 mg/dL (0.15-1.2); Total Protein 5.8 g/dL (6.6-8.7)
[2019-06-13 08:00] VITALS: BP 165/72; PULSE 70; RESP 18; TEMP 36.5; O2SAT 97
[2019-06-13] MEDS: pregabalin 100 mg Capsule PO ×2 (08:47→18:20)
[2019-06-13] MEDS: isosorbide mononitrate ER 30 mg Tablet 15 MG PO (08:48)
[2019-06-13] MEDS: metoprolol tartrate 25 mg Tablet PO ×2 (08:48→18:21)
[2019-06-13] MEDS: ARIPiprazole 10 mg Tablet 5 MG PO (08:49)
[2019-06-13] MEDS: buPROPion SR (12 HR) 100 mg Tablet PO (08:50)
[2019-06-13] MEDS: lipase-protease-amylase Capsule 1 EACH PO ×3 (08:50→18:21)
[2019-06-13] MEDS: levothyroxine 150 mcg Tablet 75 MCG PO (08:50)
[2019-06-13] MEDS: tamsulosin 0.4 mg Capsule PO ×2 (08:50→18:21)
[2019-06-13] MEDS: clotrimazole 1% cream 30 gm 1 APPLIC TOPICAL ×2 (08:51→18:20)
--- NOTE | 2019-06-13 10:06 | PC.SOCIAL ---
IMM Update Pg 2 of IMM given and explained to patient who verbalized understanding. Copy provided to patient and copy placed in chart.
[2019-06-13 10:59] LABS: Glucose Point of Care 272 mg/dL (70-110)
[2019-06-13] MEDS: dextrose 5%-sod chloride 0.9% 1,000 ML 75 ML IV (11:36)
[2019-06-13 12:00] VITALS: BP 160/77; PULSE 62; RESP 20; TEMP 36.6; O2SAT 98
--- NOTE | 2019-06-13 12:57 | PM.PN ---
Subjective Subjective: Interval history: Patient continues to do well. No acute events overnight patient has remained afebrile for over 2 days now. At present patient denies of having any nausea, vomiting, headache, palpitations. Examination sitting comfortably in chair, looking a lot more alert than before, denies of having any dizziness. Urine output improving. Labs and output noted. Vitals/I&O/Wt Last Vital Signs Temp 97.9 F 06/13/19 12:00 Pulse 62 06/13/19 12:00 Resp 20 H 06/13/19 12:00 BP 160/77 06/13/19 12:00 Pulse Ox 98 06/13/19 12:00 06/12/19 06/13/19 06/13/19 22:59 06:59 14:59 Intake Total 410 / 650 936.25 / 1586.25 1297.5 / 1297.5 Output Total 1300 / 1300 700 / 2000 Balance -890 / -650 236.25 / -413.75 1297.5 / 1297.5 Weight last 48 hrs Weight 71.532 kg Weight 70.534 kg Weight 70.534 kg Physical Exam Narrative: EXAM NARRATIVE: General: No acute distress, AO x3, pallor present HEENT: PERRLA, pupils bilaterally equal and reactive Chest: Normal vesicular breath sounds, no added sounds, equal good air entry bilaterally CVS: S1-S2 regular, no murmurs, no tachycardia, no gallops, no rubs Abdomen: Soft, non tender, no organomegaly, bowel sounds present Neuro: No focal deficits, no facial deformity, AO x3, power 5/5 in all limbs Urinary Catheter Management^: Morales: Cath Placed During This Visit: yes Reason for Continuing Indwelling Catheter: Acute Urinary Retention or Obstruction Urinary Catheter Date of Insertion: 06/10/19 Urinary Catheter Time of Insertion: 15:21 Data : 06/13/19 07:08 06/13/19 07:08 A&P Assessment and plan (1) Sepsis: Status: Acute Code(s): A41.9 - Sepsis, unspecified organism (2) Urinary tract infection: Status: Acute Code(s): N39.0 - Urinary tract infection, site not specified (3) Candidiasis of vagina: Status: Acute Code(s): B37.3 - Candidiasis of vulva and vagina (4) Anemia: Status: Acute Code(s): D64.9 - Anemia, unspecified (5) Acute kidney injury: Status: Acute Code(s): N17.9 - Acute kidney failure, unspecified (6) Chronic cystitis: Status: Acute Code(s): N30.20 - Other chronic cystitis without hematuria (7) Hyponatremia: Status: Acute Code(s): E87.1 - Hypo-osmolality and hyponatremia (8) Protein calorie malnutrition: Status: Acute Code(s): E46 - Unspecified protein-calorie malnutrition Additional A&P Information Sepsis secondary to UTI/pyelonephritis: Sepsis criteria met with fever, tachycardia, leukocytosis, hypotension, On review of her old records patient did have a history of UTI with Klebsiella earlier this year with multiple UTIs with Aida glabrata in 2019. Urine was negative for yeast on her last admission. 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 C. difficile negative. Urine cultures growing yeast again. Have asked lab to do speciation and sensitivity for further treatment. C/w caspofungin 50 mg IV every 24 hour. Most likley need for 7 days from 06/10/2019 when stent was placed. D/c Zosyn as urine culture not growing any bacteria. Will monitor. WBC trending now and pt afebrile post procedure. Postop day 3 for bilateral ureteral stent: Greatly appreciate Dr. Poon's recommendations. Patient would most likely need caspofungin for 7 days from June 09. Have discussed with pharmacy for now we have 3-day supply of caspofungin. Pharmacy will try to get more vials for further treatment. On prior admission there was some concern with Aida being more the colonizers for which patient would need a biopsy to confirm. We will hold off on aspirin and Plavix for now in case patient would need biopsy in coming days. If patient is not going for the repeat procedure can restart aspirin Plavix in 3 days. Ischemic cardiomyopathy: Last echo done in May 2018 shows an EF of 35 to 40% with grade 3 diastolic dysfunction with moderate hypokinesis of septum, anteroseptal and apical segments. Patient looks euvolemic at present. Decrease fluid to 50 cc/h. Will change the fluid to half NS as the sugars are little higher side now. Monitor for fluid overload. Continue with Lopressor 25 twice daily. HTN: BP elevated now. Will start on Imdur at 1/2 home dose. Given the chance that patient may go into septic shock. Continue with home dose of Imdur 30 mg daily. Anemia: Hemoglobin is stable. S/p 1 unit transfusion. C/w PO iron. We will plan to keep hemoglobin over 8 given her cardiac history. Acute kidney injury with hyperkalemia &metabolic acidosis: Resolved. Baseline creatinine is 1-1.2 Chronic diarrhea: C. difficile negative x2 in this admission. Continue with pancrelipase. If patient continues to have diarrhea can give Imodium. Type 2 diabetes: Sliding scale at moderate dose. Sugars mildly elevated now given the fact that patient is on D5. Change fluid to half NS today. Continue with chronic medications like Remeron pancrelipase, levothyroxine, Flomax, pregabalin at home dose. Patient is DNR/DNI Low potassium cardiac diet Famotidine for PUD prophylaxis Lovenox for DVT prophylaxis. Dispo: [facility] Will have to confirm if they can get caspofungin to finish the course till . Attestations Medical Necessity Statement*: Sepsis due to Aida pyelonephritis Time Spent in Patient Care: Greater than 35 minutes Coding Level of Care Code Acute Manager Of Loss Prevention Operations for [facility] Fwd Diagnoses Sepsis A41.9 Urinary tract infection N39.0 Candidiasis of vagina B37.3 Anemia D64.9 Acute kidney injury N17.9 Chronic cystitis N30.20 Hyponatremia E87.1 Protein calorie malnutrition E46
[2019-06-13] MEDS: sodium chloride 0.45% 1,000 ML 50 ML IV (14:16)
[2019-06-13 16:00] VITALS: BP 145/70; PULSE 65; RESP 17; TEMP 36.8; O2SAT 96
[2019-06-13] MEDS: famotidine 20 mg Tablet PO (16:19)
[2019-06-13 18:24] LABS: Glucose Point of Care 52 mg/dL (70-110)
--- NOTE | 2019-06-13 18:24 | PC.NURSE ---
BLOOD GLUCOSE Patient's BG 52, hypoglycemic protocol started, patient given 4oz of OJ, and will recheck BG in 15 mins, Patient asymptomatic at this time.
[2019-06-13 18:51] LABS: Glucose Point of Care 77 mg/dL (70-110)
--- NOTE | 2019-06-13 18:53 | PC.NURSE ---
BLOOD GLUCOSE Rechecked BG and was 77, will recheck in 30 mins.
[2019-06-13 20:00] VITALS: BP 147/67; PULSE 67; RESP 16; TEMP 36.4; O2SAT 97
[2019-06-13] MEDS: mirtazapine 15 mg Tablet PO (20:01)
[2019-06-13] MEDS: sertraline 100 mg Tablet PO (20:02)
[2019-06-13] MEDS: atorvastatin 40 mg Tablet 20 MG PO (20:02)
[2019-06-13 20:08] LABS: Glucose Point of Care 111 mg/dL (70-110)
[2019-06-13 23:57] VITALS: BP 146/68; PULSE 65; RESP 16; TEMP 36.6; O2SAT 97
[2019-06-14] MEDS: HYDROcodone-acetaminophen 5-325 mg Tablet 1 TAB PO ×2 (03:17→22:11)
[2019-06-14 04:00] VITALS: BP 134/68; PULSE 64; RESP 17; TEMP 36.4; O2SAT 95
[2019-06-14] MEDS: famotidine 20 mg Tablet PO ×2 (05:31→17:18)
[2019-06-14 05:43] LABS: Basophils # 0.1 10^3/uL (0.0-0.1); Basophils % 0.6 %; Eosinophils # 0.7 10^3/uL (0.0-0.8); Eosinophils % 5.4 %; Hematocrit 31.8 % (37.0-47.0); Hemoglobin 9.4 g/dL (11.5-15.3); Lymphocytes # 1.3 10^3/uL (0.8-4.8); Lymphocytes % 9.4 %; Mean Corpuscular HGB Conc 29.6 g/dL (30.0-36.0); Mean Corpuscular Hemoglobin 24.5 pg (28.0-34.0); Mean Platelet Volume 9.9 fL (7.4-10.4); Monocytes # 1.2 10^3/uL (0.2-0.9); Monocytes % 9.3 %; Neutrophils # 9.9 10^3/uL (1.8-7.7); Neutrophils % 74.1 %; Nucleated Red Blood Cells % 0 %; Platelet Count 506 10^3/cmm (130-400); Red Blood Count 3.83 10^6/uL (4.1-5.3); Red Cell Distribution Width 20.2 % (12.1-15.1); White Blood Count 13.4 10^3/uL (4.0-10.0)
--- NOTE | 2019-06-14 05:55 | P.MISC_ITS ---
Miscellaneous Note Purpose of Documentation: UROLOGY UPDATE Note: Chart reviewed daily. Appears to have clinically improved. I think it's ok to remove cath now given the clinical improvement. Agree with D/C when stable. If her Candidal UTI can be cleared she is at lower risk of recurrent obstruction. She had a lot of congealed sediment in her bladder frequently seen with chronic yeast infection. I expect similar material in her upper tracts contributing to the obstructive phenomenon. Hope will be to remove the stents as soon as possible. Her risk of reinfection I believe is high. Urology f/u: RTC in 10 days with RENAL ULTRASOUND. We will discuss short and wood strip block floor installer plans for stents then.
[2019-06-14 06:04] LABS: Alanine Aminotransferase 9 U/L (0-33); Albumin Level 2.3 g/dL (3.5-5.2); Alkaline Phosphatase 174 IU/L (35-105); Anion Gap 14.8 (5-19); Aspartate Amino Transferase 14 U/L (0-32); Blood Urea Nitrogen 5 mg/dL (6-20); Calcium 7.8 mg/dL (8.5-10.5); Carbon Dioxide 23 mmol/L (22-29); Chloride 112 mmol/L (98-107); Globulin 4.1 g/dL (1.3-4.6); Glomerular Filtration Rate 86.2 mL/min (90-130); Glucose 126 mg/dL (65-115); Osmolality Calculated 301 mOsm/kg (285-295); Sodium 147 mmol/L (136-145); Total Bilirubin 0.2 mg/dL (0.15-1.2); Total Protein 6.4 g/dL (6.6-8.7)
[2019-06-14 06:20] LABS: Potassium 2.8 mmol/L (3.5-5.1)
[2019-06-14 06:42] LABS: Glucose Point of Care 126 mg/dL (70-110)
[2019-06-14] MEDS: potassium chloride premix 40 MEQ/100 ML PREMIX 25 MEQ IV ×2 (07:20→11:01)
[2019-06-14 07:49] VITALS: BP 160/73; PULSE 75; RESP 16; TEMP 36.8; O2SAT 93
[2019-06-14] MEDS: pregabalin 100 mg Capsule PO ×2 (08:40→17:17)
[2019-06-14] MEDS: tamsulosin 0.4 mg Capsule PO ×2 (08:40→17:17)
[2019-06-14] MEDS: isosorbide mononitrate ER 30 mg Tablet PO (08:41)
[2019-06-14] MEDS: levothyroxine 150 mcg Tablet 75 MCG PO (08:41)
[2019-06-14] MEDS: buPROPion SR (12 HR) 100 mg Tablet PO (08:42)
[2019-06-14] MEDS: ARIPiprazole 10 mg Tablet 5 MG PO (08:42)
[2019-06-14] MEDS: lipase-protease-amylase Capsule 1 EACH PO ×3 (08:43→17:17)
[2019-06-14] MEDS: metoprolol tartrate 25 mg Tablet PO ×2 (08:43→17:17)
[2019-06-14] MEDS: sodium chloride 0.45% 1,000 ML 50 ML IV (08:45)
[2019-06-14] MEDS: clotrimazole 1% cream 30 gm 1 APPLIC TOPICAL ×2 (08:46→17:18)
[2019-06-14] MEDS: dextrose 5%-sod chloride 0.45% 1,000 ML 50 ML IV (11:01)
[2019-06-14 11:16] LABS: Glucose Point of Care 175 mg/dL (70-110)
[2019-06-14 11:41] VITALS: BP 140/82; PULSE 70; RESP 16; TEMP 36.8; O2SAT 96
--- NOTE | 2019-06-14 12:55 | PM.PN ---
Subjective Subjective: Interval history: Patient continues to do well. No acute events overnight. Labs input and output noted. Examination patient is a lot more conversant and asking when she can go back to the shelter. Denies of having any nausea, vomiting, abdominal pain, headache, palpitations, difficulty in breathing. Vitals/I&O/Wt Last Vital Signs Temp 98.3 F 06/14/19 11:41 Pulse 70 06/14/19 11:41 Resp 16 06/14/19 11:41 BP 140/82 06/14/19 11:41 Pulse Ox 96 06/14/19 11:41 06/13/19 06/14/19 06/14/19 22:59 06:59 14:59 Intake Total 660 / 2547.5 1207.917 / 1207.917 Output Total 1350 / 1350 700 / 700 Balance -690 / 1197.5 507.917 / 507.917 Weight last 48 hrs Weight 72.348 kg Weight 71.532 kg Physical Exam Narrative: EXAM NARRATIVE: General: No acute distress, AO x3, pallor present HEENT: PERRLA, pupils bilaterally equal and reactive Chest: Normal vesicular breath sounds, no added sounds, equal good air entry bilaterally CVS: S1-S2 regular, no murmurs, no tachycardia, no gallops, no rubs Abdomen: Soft, non tender, no organomegaly, bowel sounds present Neuro: No focal deficits, no facial deformity, AO x3, power 5/5 in both upper limbs Urinary Catheter Management^: Morales: Cath Placed During This Visit: yes Reason for Continuing Indwelling Catheter: Acute Urinary Retention or Obstruction Urinary Catheter Date of Insertion: 06/10/19 Urinary Catheter Time of Insertion: 15:21 Data : 06/14/19 04:53 06/14/19 04:53 Micro: Microbiology 06/08/19 17:20 Blood Culture - Final Blood NO GROWTH AFTER 5 DAYS 06/08/19 18:15 Blood Culture - Final Blood NO GROWTH AFTER 5 DAYS A&P Assessment and plan (1) Sepsis: Status: Acute Code(s): A41.9 - Sepsis, unspecified organism (2) Urinary tract infection: Status: Acute Code(s): N39.0 - Urinary tract infection, site not specified (3) Candidiasis of vagina: Status: Acute Code(s): B37.3 - Candidiasis of vulva and vagina (4) Anemia: Status: Acute Code(s): D64.9 - Anemia, unspecified (5) Acute kidney injury: Status: Acute Code(s): N17.9 - Acute kidney failure, unspecified (6) Chronic cystitis: Status: Acute Code(s): N30.20 - Other chronic cystitis without hematuria (7) Hyponatremia: Status: Acute Code(s): E87.1 - Hypo-osmolality and hyponatremia (8) Protein calorie malnutrition: Status: Acute Code(s): E46 - Unspecified protein-calorie malnutrition Additional A&P Information Sepsis secondary to UTI/pyelonephritis: Sepsis criteria met with fever, tachycardia, leukocytosis, hypotension, On review of her old records patient did have a history of UTI with Klebsiella earlier this year with multiple UTIs with Aida glabrata in 2019. Urine was negative for yeast on her last admission. 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 C. difficile negative. Urine cultures growing yeast again. Have asked lab to do speciation and sensitivity for further treatment. C/w caspofungin 50 mg IV every 24 hour. Treatment of caspofungin to be completed on June 18 Zosyn DC'd on and patient has remained afebrile. WBC trending now and pt afebrile post procedure. Postop day 4 for bilateral ureteral stent: Greatly appreciate Dr. Poon's recommendations. Patient would most likely need caspofungin for 7 days from June 09. Have discussed with pharmacy for now we have 3-day supply of caspofungin. Pharmacy will try to get more vials for further treatment. On prior admission there was some concern with Aida being more the colonizers for which patient would need a biopsy to confirm. For nausea no discussions of repeat procedure so we will start the Plavix back. Plavix will have to be discontinued 3 days prior to the procedure. Hypernatremia/hypokalemia: We will switch the fluid to D5 half NS for sodium levels of 147 today. No signs of dehydration, hypernatremia right now Replete potassium with 80 mEq IV 40 mEq oral. Ischemic cardiomyopathy: Last echo done in May 2018 shows an EF of 35 to 40% with grade 3 diastolic dysfunction with moderate hypokinesis of septum, anteroseptal and apical segments. Patient looks euvolemic at present. Decrease fluid to 50 cc/h. Patient having hypernatremia today so we will change fluid to D5 half NS. Monitor for fluid overload. Continue with Lopressor 25 twice daily. HTN: Blood pressure is better now. Continue with home dose of Imdur 30 mg daily. Anemia: Hemoglobin is stable. S/p 1 unit transfusion. C/w PO iron. We will plan to keep hemoglobin over 8 given her cardiac history. Acute kidney injury with hyperkalemia &metabolic acidosis: Resolved. Baseline creatinine is 1-1.2 Chronic diarrhea: C. difficile negative x2 in this admission. Continue with pancrelipase. If patient continues to have diarrhea can give Imodium. Type 2 diabetes: Sliding scale at moderate dose. Sugars mildly elevated now given the fact that patient is on D5. Change fluid to half NS today. Continue with chronic medications like Remeron pancrelipase, levothyroxine, Flomax, pregabalin at home dose. Patient is DNR/DNI Low potassium cardiac diet Famotidine for PUD prophylaxis Lovenox for DVT prophylaxis. Dispo: Patient can be discharged back to shelter. Will have to confirm if they can get caspofungin to finish the course till . Attestations Medical Necessity Statement*: Aida pyelonephritis causing sepsis Time Spent in Patient Care: Greater than 35 minutes Coding Level of Care Code Acute Conference Services Coordinator for [facility] Fwd Diagnoses Sepsis A41.9 Urinary tract infection N39.0 Candidiasis of vagina B37.3 Anemia D64.9 Acute kidney injury N17.9 Chronic cystitis N30.20 Hyponatremia E87.1 Protein calorie malnutrition E46
[2019-06-14] MEDS: clopidogrel 75 mg Tablet PO (13:33)
[2019-06-14 16:00] VITALS: BP 158/79; PULSE 70; RESP 16; TEMP 36.8; O2SAT 97
[2019-06-14 17:05] LABS: Glucose Point of Care 148 mg/dL (70-110)
[2019-06-14 20:00] VITALS: BP 155/75; PULSE 71; RESP 18; TEMP 37.1; O2SAT 95
[2019-06-14 20:50] LABS: Glucose Point of Care 168 mg/dL (70-110)
[2019-06-14] MEDS: sertraline 100 mg Tablet PO (21:59)
[2019-06-14] MEDS: mirtazapine 15 mg Tablet PO (22:01)
[2019-06-14] MEDS: atorvastatin 40 mg Tablet 20 MG PO (22:01)
[2019-06-15] VITALS (7 sets, daily range): BP systolic 140–175; BP diastolic 55–82; PULSE 62–75; RESP 16–18; TEMP 36.4–36.8; O2SAT 93–97
[2019-06-15 02:49] LABS: Glucose Point of Care 108 mg/dL (70-110)
[2019-06-15] MEDS: famotidine 20 mg Tablet PO ×2 (05:29→16:18)
[2019-06-15 06:09] LABS: Basophils # 0.1 10^3/uL (0.0-0.1); Eosinophils # 0.7 10^3/uL (0.0-0.8); Eosinophils % 5.6 %; Hematocrit 30.3 % (37.0-47.0); Hemoglobin 8.8 g/dL (11.5-15.3); Lymphocytes # 1.9 10^3/uL (0.8-4.8); Lymphocytes % 15.9 %; Mean Corpuscular Hemoglobin 24.2 pg (28.0-34.0); Mean Corpuscular Volume 83.5 fL (81-99); Monocytes # 1.4 10^3/uL (0.2-0.9); Monocytes % 11.9 %; Neutrophils # 7.7 10^3/uL (1.8-7.7); Neutrophils % 63.9 %; Nucleated Red Blood Cells % 0 %; Platelet Count 487 10^3/cmm (130-400); Red Blood Count 3.63 10^6/uL (4.1-5.3); Red Cell Distribution Width 20.6 % (12.1-15.1); White Blood Count 12.1 10^3/uL (4.0-10.0)
[2019-06-15 06:36] LABS: Alanine Aminotransferase 8 U/L (0-33); Albumin Level 2.4 g/dL (3.5-5.2); Alkaline Phosphatase 158 IU/L (35-105); Anion Gap 12.8 (5-19); Aspartate Amino Transferase 13 U/L (0-32); Blood Urea Nitrogen 5 mg/dL (6-20); Carbon Dioxide 23 mmol/L (22-29); Chloride 113 mmol/L (98-107); Globulin 3.8 g/dL (1.3-4.6); Glomerular Filtration Rate 73.9 mL/min (90-130); Glucose 169 mg/dL (65-115); Osmolality Calculated 300 mOsm/kg (285-295); Potassium 3.8 mmol/L (3.5-5.1); Sodium 145 mmol/L (136-145); Total Bilirubin 0.2 mg/dL (0.15-1.2); Total Protein 6.2 g/dL (6.6-8.7)
[2019-06-15 06:49] LABS: Glucose Point of Care 177 mg/dL (70-110)
[2019-06-15] MEDS: buPROPion SR (12 HR) 100 mg Tablet PO (08:31)
[2019-06-15] MEDS: pregabalin 100 mg Capsule PO ×2 (08:31→17:57)
[2019-06-15] MEDS: isosorbide mononitrate ER 30 mg Tablet PO (08:31)
[2019-06-15] MEDS: ARIPiprazole 10 mg Tablet 5 MG PO (08:31)
[2019-06-15] MEDS: levothyroxine 150 mcg Tablet 75 MCG PO (08:32)
[2019-06-15] MEDS: lipase-protease-amylase Capsule 1 EACH PO ×3 (08:32→17:57)
[2019-06-15] MEDS: tamsulosin 0.4 mg Capsule PO ×2 (08:32→17:57)
[2019-06-15] MEDS: ferrous sulfate EC 325 mg Tablet PO ×2 (08:32→17:57)
[2019-06-15] MEDS: clopidogrel 75 mg Tablet PO (08:32)
[2019-06-15] MEDS: metoprolol tartrate 25 mg Tablet PO ×2 (08:32→17:57)
[2019-06-15] MEDS: clotrimazole 1% cream 30 gm 1 APPLIC TOPICAL ×2 (08:33→17:58)
[2019-06-15] MEDS: dextrose 5%-sod chloride 0.45% 1,000 ML 50 ML IV (08:34)
[2019-06-15 11:16] LABS: Glucose Point of Care 220 mg/dL (70-110)
--- NOTE | 2019-06-15 11:54 | PC.SOCIAL ---
* Patient received reminder about the IM from Medicare.
[2019-06-15 17:12] LABS: Glucose Point of Care 150 mg/dL (70-110)
--- NOTE | 2019-06-15 17:34 | P.PN_ITS ---
Subjective Subjective: Interval history: She is having some back pain, but otherwise says is doing all right. No new changes. Back discomfort is chronic. She says she tries to remember to reposition in bed. Vitals/I&O/Wt Last Vital Signs Temp 98.3 F 06/15/19 16:00 Pulse 75 06/15/19 16:00 Resp 16 06/15/19 16:00 BP 174/72 06/15/19 16:56 Pulse Ox 96 06/15/19 16:00 06/15/19 06/15/19 06/15/19 06:59 14:59 22:59 Intake Total 500 / 2537.917 1490 / 1490 Output Total 1300 / 2600 700 / 700 Balance -800 / -62.083 790 / 790 Weight last 48 hrs Weight 68.663 kg Weight 68.663 kg Weight 72.348 kg Physical Exam Const: COMMON NORMALS: no apparent distress and oriented x3 GENERAL APPEARANCE: frail appearing HENMT: COMMON NORMALS: oropharynx normal Neck/C-Spine: COMMON NORMALS: no JVD Resp: COMMON NORMALS: normal respiratory effort and clear to auscultation bilaterally AUSCULTATION: clear to auscultation bilaterally Cardio: COMMON NORMALS: no JVD, regular rhythm, S1 normal heart sound, S2 normal heart sound and no murmurs RHYTHM: regular rhythm HEART SOUNDS: S1 normal and S2 normal GI: COMMON NORMALS: normal to inspection, nondistended, normoactive bowel sounds, soft to palpation and non-tender PALPATION: Yes soft Extremity: OTHER: Bilateral AKA. No wounds. No swelling. Neuro: COMMON NORMALS: oriented x3 and moves all extremities Skin: COMMON NORMALS: no rashes or lesions noted GENERAL SKIN EXAM: no rashes or lesions noted Urinary Catheter Management^: Morales: Cath Placed During This Visit: yes Reason for Continuing Indwelling Catheter: Acute Urinary Retention or Obstruction Urinary Catheter Date of Insertion: 06/10/19 Urinary Catheter Time of Insertion: 15:21 Data : 06/15/19 05:22 06/15/19 05:22 Micro: Microbiology 06/10/19 09:33 Blood Culture - Final Blood NO GROWTH AFTER 5 DAYS 06/10/19 09:27 Blood Culture - Final Blood NO GROWTH AFTER 5 DAYS A&P Assessment and plan (1) Sepsis: Secondary to UTI/pyelonephritis on presentation. Aida glabrata growing on culture and urine. Collected 06/07. Pending susceptibility testing. Status: Acute Code(s): A41.9 - Sepsis, unspecified organism (2) Urinary tract infection: Complicated UTI. Yeast infection with concern for invasive candidiasis. Aida glabrata pending susceptibility testing. Antibiotic has been discontinued. With urinary outflow obstruction status post bilateral stenting. Status: Acute Code(s): N39.0 - Urinary tract infection, site not specified (3) Candidiasis of vagina: Status: Acute Code(s): B37.3 - Candidiasis of vulva and vagina (4) Anemia: Status post 1 unit. Receive transfusion. Receiving iron supplementation. Status: Acute Code(s): D64.9 - Anemia, unspecified (5) Acute kidney injury: Resolved. Status: Acute Code(s): N17.9 - Acute kidney failure, unspecified (6) Chronic cystitis: Status: Acute Code(s): N30.20 - Other chronic cystitis without hematuria (7) Hyponatremia: Resolved. Status: Acute Code(s): E87.1 - Hypo-osmolality and hyponatremia (8) Protein calorie malnutrition: Status: Acute Code(s): E46 - Unspecified protein-calorie malnutrition (9) Hyperkalemia: Resolved. Status: Acute Code(s): E87.5 - Hyperkalemia (10) Hypernatremia: Improved. Status: Acute Code(s): E87.0 - Hyperosmolality and hypernatremia (11) Hypokalemia: Replaced. Status: Acute Code(s): E87.6 - Hypokalemia (12) Ischemic cardiomyopathy: Does not appear fluid overloaded. Saturating well on room air. We will discontinue IV fluids. Status: Acute Code(s): I25.5 - Ischemic cardiomyopathy (13) Essential hypertension: Blood pressures are variable. Today on the high side. Continue cardiac diet. Imdur. Metoprolol. Flomax. Add amlodipine. When creatinine is stable consider adding low-dose ACEI/ARB Status: Acute Code(s): I10 - Essential (primary) hypertension Additional A&P Information Chronic diarrhea: C. difficile negative x2 in this admission. Continue with pancrelipase. Type 2 diabetes: Sliding scale at moderate dose. Sugars mildly elevated now gi dawn the fact that patient is on D5. Change fluid to half NS today. Continue with chronic medications like Remeron pancrelipase, levothyroxine, Flomax, pregabalin at home dose. Dispo: [facility] Confirm if they can get caspofungin to finish the course till . Attestations Medical Necessity Statement*: Continue admission for assessment of management of complicated urinary tract infection, recurrent candidal infection, suspected invasive candidiasis with fluconazole resistant Aida glabrata. Coding Level of Care Code Acute Bookkeeper for [facility] Fwd Diagnoses Sepsis A41.9 Urinary tract infection N39.0 Candidiasis of vagina B37.3 Anemia D64.9 Acute kidney injury N17.9 Chronic cystitis N30.20 Hyponatremia E87.1 Protein calorie malnutrition E46 Hyperkalemia E87.5 Hypernatremia E87.0 Hypokalemia E87.6 Ischemic cardiomyopathy I25.5 Essential hypertension I10
[2019-06-15] MEDS: HYDROcodone-acetaminophen 5-325 mg Tablet 1 TAB PO (21:07)
[2019-06-15] MEDS: mirtazapine 15 mg Tablet PO (21:08)
[2019-06-15] MEDS: sertraline 100 mg Tablet PO (21:08)
[2019-06-15] MEDS: atorvastatin 40 mg Tablet 20 MG PO (21:08)
[2019-06-15 21:16] LABS: Glucose Point of Care 104 mg/dL (70-110)
[2019-06-16] VITALS (7 sets, daily range): BP systolic 133–176; BP diastolic 60–77; PULSE 62–74; RESP 17–22; TEMP 36.6–37.2; O2SAT 92–96
[2019-06-16] MEDS: famotidine 20 mg Tablet PO ×2 (05:16→17:24)
--- NOTE | 2019-06-16 06:05 | PC.NURSE ---
SHIFT SUMMARY Has rested well tonight. Required Hydrocodone po X1 for low back pain last evening. No c/o after this. Has had good urine output from Morales.
[2019-06-16 06:19] LABS: Glucose Point of Care 132 mg/dL (70-110)
[2019-06-16 06:32] LABS: Alanine Aminotransferase 9 U/L (0-33); Albumin Level 2.5 g/dL (3.5-5.2); Alkaline Phosphatase 157 IU/L (35-105); Anion Gap 15.8 (5-19); Aspartate Amino Transferase 17 U/L (0-32); Blood Urea Nitrogen 8 mg/dL (6-20); Carbon Dioxide 23 mmol/L (22-29); Chloride 108 mmol/L (98-107); Globulin 4.2 g/dL (1.3-4.6); Glomerular Filtration Rate 85.9 mL/min (90-130); Glucose 141 mg/dL (65-115); Osmolality Calculated 294 mOsm/kg (285-295); Potassium 3.8 mmol/L (3.5-5.1); Sodium 143 mmol/L (136-145); Total Bilirubin 0.2 mg/dL (0.15-1.2); Total Protein 6.7 g/dL (6.6-8.7)
[2019-06-16 07:43] LABS: Basophils # 0.1 10^3/uL (0.0-0.1); Basophils % 0.8 %; Eosinophils # 0.7 10^3/uL (0.0-0.8); Eosinophils % 4.2 %; Hematocrit 33.7 % (37.0-47.0); Lymphocytes # 1.3 10^3/uL (0.8-4.8); Lymphocytes % 8.4 %; Mean Corpuscular HGB Conc 29.7 g/dL (30.0-36.0); Mean Corpuscular Hemoglobin 24.4 pg (28.0-34.0); Mean Corpuscular Volume 82.4 fL (81-99); Mean Platelet Volume 9.4 fL (7.4-10.4); Monocytes # 1.3 10^3/uL (0.2-0.9); Neutrophils # 12.2 10^3/uL (1.8-7.7); Nucleated Red Blood Cells % 0 %; Platelet Count 532 10^3/cmm (130-400); Red Blood Count 4.09 10^6/uL (4.1-5.3); Red Cell Distribution Width 20.9 % (12.1-15.1); White Blood Count 15.8 10^3/uL (4.0-10.0)
[2019-06-16] MEDS: isosorbide mononitrate ER 30 mg Tablet PO (08:28)
[2019-06-16] MEDS: ferrous sulfate EC 325 mg Tablet PO ×2 (08:28→17:24)
[2019-06-16] MEDS: pregabalin 100 mg Capsule PO ×2 (08:28→17:24)
[2019-06-16] MEDS: lipase-protease-amylase Capsule 1 EACH PO ×3 (08:28→17:24)
[2019-06-16] MEDS: clopidogrel 75 mg Tablet PO (08:28)
[2019-06-16] MEDS: metoprolol tartrate 25 mg Tablet PO ×2 (08:28→17:23)
[2019-06-16] MEDS: amlodipine 5 mg Tablet PO (08:28)
[2019-06-16] MEDS: tamsulosin 0.4 mg Capsule PO ×2 (08:28→17:23)
[2019-06-16] MEDS: levothyroxine 150 mcg Tablet 75 MCG PO (08:28)
[2019-06-16] MEDS: ARIPiprazole 10 mg Tablet 5 MG PO (08:28)
[2019-06-16] MEDS: buPROPion SR (12 HR) 100 mg Tablet PO (08:32)
[2019-06-16] MEDS: clotrimazole 1% cream 30 gm 1 APPLIC TOPICAL ×2 (08:32→17:24)
[2019-06-16 11:08] LABS: Glucose Point of Care 259 mg/dL (70-110)
--- NOTE | 2019-06-16 17:05 | PM.PN ---
Subjective Subjective: Interval history: Denies any new symptoms today. Vitals/I&O/Wt Last Vital Signs Temp 98.2 F 06/16/19 14:56 Pulse 69 06/16/19 14:56 Resp 18 06/16/19 14:56 BP 135/67 06/16/19 14:56 Pulse Ox 93 06/16/19 14:56 06/16/19 06/16/19 06/16/19 06:59 14:59 22:59 Intake Total 210 / 2190 510 / 510 Output Total 700 / 2850 700 / 700 Balance -490 / -660 -190 / -190 Weight last 48 hrs Weight 66.423 kg Weight 68.663 kg Weight 68.663 kg Physical Exam Const: COMMON NORMALS: no apparent distress and oriented x3 GENERAL APPEARANCE: frail appearing HENMT: COMMON NORMALS: oropharynx normal Neck/C-Spine: COMMON NORMALS: no JVD Resp: COMMON NORMALS: normal respiratory effort and clear to auscultation bilaterally AUSCULTATION: clear to auscultation bilaterally Cardio: COMMON NORMALS: no JVD, regular rhythm, S1 normal heart sound, S2 normal heart sound and no murmurs RHYTHM: regular rhythm HEART SOUNDS: S1 normal and S2 normal GI: COMMON NORMALS: normal to inspection, nondistended, normoactive bowel sounds, soft to palpation and non-tender PALPATION: Yes soft Extremity: OTHER: Bilateral AKA. No wounds. No swelling. Neuro: COMMON NORMALS: oriented x3 and moves all extremities Skin: COMMON NORMALS: no rashes or lesions noted GENERAL SKIN EXAM: no rashes or lesions noted Urinary Catheter Management^: Morales: Cath Placed During This Visit: yes Reason for Continuing Indwelling Catheter: Acute Urinary Retention or Obstruction Urinary Catheter Date of Insertion: 06/10/19 Urinary Catheter Time of Insertion: 15:21 Data : 06/16/19 07:36 06/16/19 06:02 Micro: Microbiology 06/08/19 17:37 Urine Culture - Final Urine Catheterized Aida glabrata A&P Assessment and plan (1) Sepsis: Secondary to UTI/pyelonephritis on presentation. Aida glabrata growing on culture and urine. Collected 06/07. Resistant to Diflucan. Susceptible to caspofungin. Status: Acute Code(s): A41.9 - Sepsis, unspecified organism (2) Urinary tract infection: Complicated UTI. Yeast infection with concern for invasive candidiasis. Aida glabrata resistant to Diflucan. Susceptible to caspofungin. Antibiotic has been discontinued. With urinary outflow obstruction status post bilateral stenting. Status: Acute Code(s): N39.0 - Urinary tract infection, site not specified (3) Candidiasis of vagina: Status: Acute Code(s): B37.3 - Candidiasis of vulva and vagina (4) Anemia: Status post 1 unit. Receive transfusion. Receiving iron supplementation. Status: Acute Code(s): D64.9 - Anemia, unspecified (5) Acute kidney injury: Resolved. Status: Acute Code(s): N17.9 - Acute kidney failure, unspecified (6) Chronic cystitis: Status: Acute Code(s): N30.20 - Other chronic cystitis without hematuria (7) Hyponatremia: Resolved. Status: Acute Code(s): E87.1 - Hypo-osmolality and hyponatremia (8) Protein calorie malnutrition: Status: Acute Code(s): E46 - Unspecified protein-calorie malnutrition (9) Hyperkalemia: Resolved. Status: Acute Code(s): E87.5 - Hyperkalemia (10) Hypernatremia: Improved. Status: Acute Code(s): E87.0 - Hyperosmolality and hypernatremia (11) Hypokalemia: Replaced. Status: Acute Code(s): E87.6 - Hypokalemia (12) Ischemic cardiomyopathy: Does not appear fluid overloaded. Saturating well on room air. Status: Acute Code(s): I25.5 - Ischemic cardiomyopathy (13) Essential hypertension: Blood pressures are variable. Today on the high side. Continue cardiac diet. Imdur. Metoprolol. Flomax. Amlodipine. When creatinine is stable consider adding low-dose ACEI/ARB Status: Acute Code(s): I10 - Essential (primary) hypertension Additional A&P Information Chronic diarrhea: C. difficile negative x2 in this admission. Continue with pancrelipase. Type 2 diabetes: Sliding scale at moderate dose. Continue with chronic medications like Remeron pancrelipase, levothyroxine, Flomax, pregabalin at home dose. Dispo: Patient can be discharged back to group home. Confirm if they can get caspofungin to finish the course till . Attestations Medical Necessity Statement*: Pending arrangements for caspofungin by group home to complete therapy for invasive candidal complicated urinary tract infection. Coding Level of Care Code Acute Premium Cancellation Clerk for [facility] Fwd Diagnoses Sepsis A41.9 Urinary tract infection N39.0 Candidiasis of vagina B37.3 Anemia D64.9 Acute kidney injury N17.9 Chronic cystitis N30.20 Hyponatremia E87.1 Protein calorie malnutrition E46 Hyperkalemia E87.5 Hypernatremia E87.0 Hypokalemia E87.6 Ischemic cardiomyopathy I25.5 Essential hypertension I10
[2019-06-16 17:10] LABS: Glucose Point of Care 218 mg/dL (70-110)
[2019-06-16] MEDS: atorvastatin 40 mg Tablet 20 MG PO (20:41)
[2019-06-16] MEDS: mirtazapine 15 mg Tablet PO (20:41)
[2019-06-16] MEDS: sertraline 100 mg Tablet PO (20:41)
[2019-06-16 21:25] LABS: Glucose Point of Care 221 mg/dL (70-110)
[2019-06-17 03:53] VITALS: BP 147/69; PULSE 68; RESP 18; TEMP 37.1; O2SAT 90
[2019-06-17] MEDS: famotidine 20 mg Tablet PO (04:37)
[2019-06-17 05:36] LABS: Basophils # 0.1 10^3/uL (0.0-0.1); Basophils % 0.5 %; Eosinophils # 0.8 10^3/uL (0.0-0.8); Eosinophils % 4.6 %; Hematocrit 33.3 % (37.0-47.0); Hemoglobin 9.9 g/dL (11.5-15.3); Lymphocytes # 2.2 10^3/uL (0.8-4.8); Lymphocytes % 13.3 %; Mean Corpuscular HGB Conc 29.7 g/dL (30.0-36.0); Mean Corpuscular Hemoglobin 24.6 pg (28.0-34.0); Mean Corpuscular Volume 82.8 fL (81-99); Mean Platelet Volume 9.8 fL (7.4-10.4); Monocytes # 1.6 10^3/uL (0.2-0.9); Monocytes % 9.4 %; Neutrophils # 11.8 10^3/uL (1.8-7.7); Neutrophils % 70.2 %; Nucleated Red Blood Cells % 0 %; Platelet Count 583 10^3/cmm (130-400); Red Blood Count 4.02 10^6/uL (4.1-5.3); Red Cell Distribution Width 21.1 % (12.1-15.1); White Blood Count 16.8 10^3/uL (4.0-10.0)
[2019-06-17 06:08] LABS: Alanine Aminotransferase 12 U/L (0-33); Albumin Level 2.5 g/dL (3.5-5.2); Alkaline Phosphatase 153 IU/L (35-105); Anion Gap 16.6 (5-19); Aspartate Amino Transferase 26 U/L (0-32); Blood Urea Nitrogen 13 mg/dL (6-20); Calcium 9.2 mg/dL (8.5-10.5); Carbon Dioxide 24 mmol/L (22-29); Chloride 109 mmol/L (98-107); Globulin 3.8 g/dL (1.3-4.6); Glomerular Filtration Rate 64.3 mL/min (90-130); Glucose 149 mg/dL (65-115); Osmolality Calculated 301 mOsm/kg (285-295); Potassium 3.6 mmol/L (3.5-5.1); Sodium 146 mmol/L (136-145); Total Bilirubin 0.2 mg/dL (0.15-1.2); Total Protein 6.3 g/dL (6.6-8.7)
[2019-06-17 06:47] LABS: Glucose Point of Care 170 mg/dL (70-110)
[2019-06-17 07:43] VITALS: BP 169/74; PULSE 75; RESP 18; TEMP 36.4; O2SAT 94
[2019-06-17] MEDS: levothyroxine 150 mcg Tablet 75 MCG PO (08:35)
[2019-06-17] MEDS: ARIPiprazole 10 mg Tablet 5 MG PO (08:35)
[2019-06-17] MEDS: lipase-protease-amylase Capsule 1 EACH PO ×2 (08:35→12:02)
[2019-06-17] MEDS: pregabalin 100 mg Capsule PO (08:36)
[2019-06-17] MEDS: isosorbide mononitrate ER 30 mg Tablet PO (08:36)
[2019-06-17] MEDS: ferrous sulfate EC 325 mg Tablet PO (08:36)
[2019-06-17] MEDS: metoprolol tartrate 25 mg Tablet PO (08:36)
[2019-06-17] MEDS: tamsulosin 0.4 mg Capsule PO (08:36)
[2019-06-17] MEDS: clopidogrel 75 mg Tablet PO (08:36)
[2019-06-17] MEDS: amlodipine 5 mg Tablet PO (08:36)
[2019-06-17] MEDS: clotrimazole 1% cream 30 gm 1 APPLIC TOPICAL (08:37)
[2019-06-17] MEDS: buPROPion SR (12 HR) 100 mg Tablet PO (08:40)
[2019-06-17 11:26] VITALS: BP 158/69; PULSE 75; RESP 16; TEMP 36.7; O2SAT 75
[2019-06-17 11:32] VITALS: BP 136/83; PULSE 65; RESP 18; TEMP 36.4; O2SAT 89
[2019-06-17 11:51] LABS: Glucose Point of Care 365 mg/dL (70-110)
--- NOTE | 2019-06-17 12:34 | PM.DCS ---
Discharge Providers Date of Admission: 06/08/19 19:47 Date of Discharge: June 17, 2019 Attending Provider at Admission: Kathryn Salas MD Attending Provider at Discharge: Jose Mosher Primary Care Provider: Bryan Adams Diagnoses at Discharge Discharge Diagnosis (1) Urinary tract infection: Status: Acute (2) Candidiasis of vagina: Status: Acute (3) Sepsis: Status: Acute (4) Anemia: Status: Acute (5) Acute kidney injury: Status: Acute (6) Chronic cystitis: Status: Acute (7) Hyponatremia: Status: Acute (8) Protein calorie malnutrition: Status: Acute (9) Hyperkalemia: Status: Acute (10) Hypernatremia: Status: Acute (11) Hypokalemia: Status: Acute (12) Ischemic cardiomyopathy: Status: Acute (13) Essential hypertension: Status: Acute Reason for Visit Reason for Visit: Reason For Visit: FEVER Hospital Course Hospital Course: Pleasant 59-year-old lady with history of recurrent urinary tract infections, with intertrigo, vulvovaginal candidiasis, and candiduria with organism resistant to Diflucan was admitted due to sepsis, complicated urinary tract infection with concern for invasive candidiasis, with acute kidney injury, urine outflow obstruction with hydronephrosis. She was treated empirically with antibiotics, but also with IV antifungal. Urine culture eventually growing Aida glabrata resistant to Diflucan, sensitive to caspofungin. Antibiotics were de-escalated. She was seen and assessed by urology, with placement of bilateral ureteral stents, with subsequent improvement in acute kidney injury. Had resolved, and she has been doing well since initiation of treatment with antifungal and management of hydronephrosis. Given recurrence of infection, and resistant organism she will need to complete 3 more days of caspofungin. Subsequently continue to monitor for recurrence of symptoms of infection, consider resuming/restarting therapy as needed. Consider referral to infectious disease specialist for evaluation. Per discussion with discharge planning caspofungin will be available at the assisted to complete her course of therapy. Subsequently should follow-up with urology in office with renal ultrasound. Morales catheter is maintained in place to ensure adequate drainage until she can be reassessed in office by urology. Physical Exam Const: COMMON NORMALS: no apparent distress and oriented x3 GENERAL APPEARANCE: frail appearing HENMT: COMMON NORMALS: oropharynx normal Neck/C-Spine: COMMON NORMALS: no JVD Resp: COMMON NORMALS: normal respiratory effort and clear to auscultation bilaterally AUSCULTATION: clear to auscultation bilaterally Cardio: COMMON NORMALS: no JVD, regular rhythm, S1 normal heart sound, S2 normal heart sound and no murmurs RHYTHM: regular rhythm HEART SOUNDS: S1 normal and S2 normal GI: COMMON NORMALS: normal to inspection, nondistended, normoactive bowel sounds, soft to palpation and non-tender PALPATION: Yes soft Extremity: OTHER: Bilateral AKA. No wounds. No swelling. Neuro: COMMON NORMALS: oriented x3 and moves all extremities Skin: COMMON NORMALS: no rashes or lesions noted GENERAL SKIN EXAM: no rashes or lesions noted Urinary Catheter Management^: Morales: Cath Placed During This Visit: yes Reason for Continuing Indwelling Catheter: Acute Urinary Retention or Obstruction Urinary Catheter Date of Insertion: 06/10/19 Urinary Catheter Time of Insertion: 15:21 Discharge Data Data Completed and Pending: Completed Studies During Hospitalization Category Date Time Status CT abdomen pelvis wo con [id number] Rout ine Cat Scan 06/08/19 21:02 Completed XR chest 1V shant ble [id number] Stat Exams 06/08/19 18:00 Completed Pending at discharge Category Date Time Status Complete Blood Co unt w/Auto AM LABS Lab 06/18/19 04:00 Ordered Comprehensive Met abolic Panel AM LA BS Lab 06/18/19 04:00 Ordered Labs from last 24 hours 06/17/19 06/17/19 06/17/19 11:28 06:36 04:56 WBC 16.8 H RBC 4.02 L Hgb 9.9 L Hct 33.3 L MCV 82.8 MCH 24.6 L MCHC 29.7 L RDW 21.1 H Plt Count 583 H MPV 9.8 Neut % (Auto) 70.2 Lymph % (Auto) 13.3 Cassia % (Auto) 9.4 Eos % (Auto) 4.6 Baso % (Auto) 0.5 Neut # (Auto) 11.8 H Lymph # (Auto) 2.2 Cassia # (Auto) 1.6 H Eos # (Auto) 0.8 Baso # (Auto) 0.1 Nucleated RBC % (a uto) 0 Nucleated RBCs # 0.0 Sodium Potassium Chloride Carbon Dioxide Anion Gap BUN Creatinine GFR Calculation Glucose POC Glucose 365 170 Calculated Osmolal ity Calcium Total Bilirubin AST ALT Alkaline Phosphata se Total Protein Albumin Globulin 06/17/19 06/16/19 06/16/19 04:56 21:17 17:04 WBC RBC Hgb Hct MCV MCH MCHC RDW Plt Count MPV Neut % (Auto) Lymph % (Auto) Cassia % (Auto) Eos % (Auto) Baso % (Auto) Neut # (Auto) Lymph # (Auto) Cassia # (Auto) Eos # (Auto) Baso # (Auto) Nucleated RBC % (a uto) Nucleated RBCs # Sodium 146 H Potassium 3.6 Chloride 109 H Carbon Dioxide 24 Anion Gap 16.6 BUN 13 Creatinine 0.9 GFR Calculation 64.3 L Glucose 149 H POC Glucose 221 218 Calculated Osmolal ity 301 H Calcium 9.2 Total Bilirubin 0.2 AST 26 ALT 12 Alkaline Phosphata se 153 H Total Protein 6.3 L Albumin 2.5 L Globulin 3.8 Vitals: Last Vital Signs Temp 97.6 F 06/17/19 11:32 Pulse 65 06/17/19 11:32 Resp 18 06/17/19 11:32 BP 136/83 06/17/19 11:32 Pulse Ox 89 L 06/17/19 11:32 Discharge Plan Discharge Patient Disposition: Xfer SNF Condition: Stable Prescriptions: New caspofungin 50 mg recon soln 50 mg IVP DAILY 3 Days Qty: 3 RF: 0 Continued simvastatin 40 mg tablet 40 mg PO BEDTIME RF: 0 ascorbic acid (vitamin C) 1,000 mg tablet 1,000 mg PO BID RF: 0 isosorbide mononitrate 30 mg tablet extended release 24 hr 30 mg PO DAILY RF: 0 metoprolol succinate 25 mg tablet extended release 24 hr 25 mg PO DAILY RF: 0 pregabalin 200 mg capsule 200 mg PO BID RF: 0 methenamine hippurate 1 gram tablet 1 gm PO BID RF: 0 tamsulosin 0.4 mg capsule 0.4 mg PO BID RF: 0 mirtazapine 7.5 mg tablet 15 mg PO BEDTIME RF: 0 aspirin [Aspir-81] 81 mg tablet,delayed release (DR/EC) 81 mg PO DAILY RF: 0 Creon 3,000-9,500- 15,000 unit capsule,delayed release(DR/EC) 1 cap PO TID RF: 0 aripiprazole 5 mg tablet 5 mg PO DAILY RF: 0 sertraline [Zoloft] 100 mg tablet 100 mg PO Q24H RF: 0 Novolog Flexpen U-100 Insulin 100 unit/mL (3 mL) insulin pen See Rx Instructions .ROUTE .COMPLEX RF: 0 levothyroxine 75 mcg capsule 75 mcg PO DAILY RF: 0 clopidogrel 75 mg tablet 75 mg PO DAILY RF: 0 Lantus U-100 Insulin 100 unit/mL solution 25 unit SUBCUT BEDTIME RF: 0 hydrocodone-acetaminophen [[place]] 5-325 mg tablet 1 tab PO Q6H PRN (Reason: Pain) RF: 0 bupropion HCl [Wellbutrin SR] 100 mg tablet sustained-release 12 hr 100 mg PO DAILY RF: 0 pantoprazole 40 mg tablet,delayed release (DR/EC) 40 mg PO QAM RF: 0 clotrimazole 1 % cream 1 applic TOPICAL BID 14 Days RF: 0 Tylenol 325 mg Tablet 650 mg PO PRN RF: 0 miconazole nitrate 2 % Cream See Rx Instructions .ROUTE .COMPLEX RF: 0 Discontinued nitrofurantoin monohyd/m-cryst [Macrobid] 100 mg capsule 100 mg PO BID RF: 0 Discharge Orders: Discharge Order (Routine); Ordered 06/17/19 Ordered By: Jose Mosher Other Ambulatory Orders: US renal BI with bladder (Routine) Timeframe: 7 Days Facility[place] [facility] [place] Location[facility] Radiology [facility] Ordered By: Jose Mosher Referrals: [facility] [Outside] Pj Poon MD [Physician] - 4-7 days Bryan Adams [Primary Care Provider] - 7-10 days Discharge Diet: Cardiac Discharge Activity: Resume usual activity Activity Restrictions/Additional Instructions: Caspofungin, including today until the , 3 more doses. Reposition frequently. Maintain Morales until seen by urology. Discharge Attestations Time Spent in Discharge Care*: greater than 30 min Quality Metrics Clinical Quality Measures During this hospital stay, did patient experience: None Coding Level of Care Code Acute Small Electric Engine Technician for [facility] Fwd Diagnoses Urinary tract infection N39.0 Candidiasis of vagina B37.3 Sepsis A41.9 Anemia D64.9 Acute kidney injury N17.9 Chronic cystitis N30.20 Hyponatremia E87.1 Protein calorie malnutrition E46 Hyperkalemia E87.5 Hypernatremia E87.0 Hypokalemia E87.6 Ischemic cardiomyopathy I25.5 Essential hypertension I10
[2019-06-17 15:55] VITALS: BP 148/70; PULSE 70; RESP 18; TEMP 37; O2SAT 95
[2019-06-17 16:44] LABS: Glucose Point of Care 148 mg/dL (70-110)
[2019-06-17 16:48] VITALS: BP 148/70; PULSE 70; RESP 18; TEMP 37; O2SAT 95
== END 2019-06-17 16:49 | disposition skilled nursing facility (03) | DRG 854 ==
LOC: ER 19:31 → MEDSURG 20:16
PROVIDERS: Family Medicine; Student in an Organized Health Care Education/Training Program; Urology; Admitting Provider Internal Medicine; Emergency Provider Emergency Medicine; Family Provider Family Medicine; PCP Family Medicine; Visit Provider Internal Medicine
PROC: 0TJB8ZZ Inspection of Bladder, Via Natural or Artificial Opening Endoscopic (ICD-10-PCS; CPT 52000; principal; 2019-06-10 14:35)
PROC: 0T788DZ Dilation of Bilateral Ureters with Intraluminal Device, Via Natural or Artificial Opening Endoscopic (ICD-10-PCS; CPT 50605; 2019-06-10 14:35)
PROC: 0TJ98ZZ Inspection of Ureter, Via Natural or Artificial Opening Endoscopic (ICD-10-PCS; CPT 52351; 2019-06-10 14:35)
DX: A41.9 Sepsis, unspecified organism (principal); N13.30 Unspecified hydronephrosis; N17.9 Acute kidney failure, unspecified; E87.1 Hypo-osmolality and hyponatremia; E87.0 Hyperosmolality and hypernatremia; E46 Unspecified protein-calorie malnutrition; N30.20 Other chronic cystitis without hematuria; E87.5 Hyperkalemia; E87.6 Hypokalemia; I25.5 Ischemic cardiomyopathy; I10 Essential (primary) hypertension; B37.3 Candidiasis of vulva and vagina; F17.210 Nicotine dependence, cigarettes, uncomplicated; N32.89 Other specified disorders of bladder; Z66 Do not resuscitate; D50.9 Iron deficiency anemia, unspecified; J44.9 Chronic obstructive pulmonary disease, unspecified; F32.9 Major depressive disorder, single episode, unspecified; E11.9 Type 2 diabetes mellitus without complications; Z79.84 Long term (current) use of oral hypoglycemic drugs; Z79.890 Hormone replacement therapy; Z79.83 Long term (current) use of bisphosphonates; Z68.24 Body mass index [BMI] 24.0-24.9, adult
CPT/HCPCS: 12345; 36415; 36416; 36430; 71045; 74176; 80053; 81001; 82962; 83540; 83550; 83605; 83690; 84145; 85025; 86850; 86900; 86920; 87040; 87086; 87106; 87107; 87186; 87493; 87804; 96372; 96375; 97110; 97161; 97530; 99284; C2625; J0637; J1650; J1815; J1956; J2001; J2370; J2405; J2543; J2704; J2710; J3010; J3480; J3490; J7030; J7050; J7799; P9016

== ENCOUNTER 2019-06-24 08:40 | Outpatient (CLI) | payer MEDICARE, MEDICAID, SELFPAY ==
--- NOTE | 2019-06-24 08:45 | US_ITS ---
WS: [id number] ULTRASOUND RENAL TECHNIQUE: Ultrasound examination of both kidneys. CLINICAL INFORMATION: COMPLICATED UTI/URETERAL STENTS COMPARISON: April 16, 2019 FINDINGS: RIGHT: Right kidney demonstrates mild hydronephrosis. Ureteral stent. Echogenicity: Normal. Cortical thickness: 1.2 cm; Normal. Hydronephrosis: Mild Perinephric fluid: None. Right kidney measures: 12.0 cm x 5.2 cm x 5.2 cm. LEFT: Left kidney mild hydronephrosis. Ureteral stent. Echogenicity: Normal. Cortical thickness: 1.4 cm; Normal. Hydronephrosis: Mild Perinephric fluid: None. Left kidney measures: 12.0 cm x 6.5 cm x 5.1 cm. Normal visualized aorta. Chronic bladder wall thickening. US/US renal BI with bladder IMPRESSION: 1. Bilateral ureteral stents with mild hydronephrosis appears improved since t he CT June 08, 2019. 2. Chronic appearing bladder wall thickening is unchanged.
== END 2019-06-24 08:41 | disposition home or self-care (01) ==
LOC: RAD 08:43 → RADWPI 08:52
PROVIDERS: Family Provider Family Medicine; PCP Family Medicine; Visit Provider Urology
DX: N39.0 Urinary tract infection, site not specified (principal); Z96.0 Presence of urogenital implants
CPT/HCPCS: 76770; 76857

== ENCOUNTER 2019-06-28 19:27 | Inpatient (IN) | payer MEDICARE, MEDICAID, SELFPAY ==
[2019-06-28] VITALS (7 sets, daily range): BP systolic 109–129; BP diastolic 47–64; PULSE 79–82; RESP 18–22; TEMP 36.2–37; O2SAT 95–98
--- NOTE | 2019-06-28 | SCC_ITS ---
Procedure Done: Cystoscopy, removal of LEFT indwelling stent. 13.5 seconds of fluoroscopic guidance, for a cumulative dose of 2.81 mGy, was provided to Dr. Poon by the radiology department. C-arm images of the abdomen were saved for the patient's permanent record. GUCCI
--- NOTE | 2019-06-28 18:20 | W.PM.OPSUD ---
Surgery/Procedure H&P Update DATE OF PROCEDURE: June 28, 2019 DATE H&P PERFORMED: 06/24/19 H&P UPDATE INFORMATION: I have reviewed H&P completed within last 30 days, I have examined patient prior to procedure and Changes to prior documentation as noted here CHANGES TO PREVIOUS DOCUMENTATION: Ms. Guidry was in my office early this week for unilateral stent removal. She had undergone a extended course of antifungal for fungal sepsis and the plan was to remove the stent with hopes of maintaining sterile urine following the extended course of treatment. If she accomplish that without flare of infection or symptomatic obstruction she was scheduled to have the second stent removed in about 2 weeks. Apparently within 24 hours of the stent removal she started spiking temperatures and that has persisted. A culture was done that showed Klebsiella. Fever today was as high as 103+ as reported by her attending physician at the long-term. The concern is for recurrent sepsis certainly bacterial but possibly residual fungal as well to. For that reason she is being emergently admitted to the operating room for bilateral ureteral stent placement (I will replace the indwelling remaining stent as well) I spoke with Dr. Hill about the difficulty of the situation. She is in agreement as to the planned procedure above. The patient has given informed consent to proceed after detailed explanation. Currently the patient is hemodynamically stable but at high risk for deterioration. Previously she had significant sepsis related to the events described above. PREOP DIAGNOSIS: Bilateral hydronephrosis/UTI PLANNED PROCEDURE: Operation Date: 06/28/19 18:10 Proposed Procedures p Cystoscopy(Not Applicable) - Pj Poon MD Operation Date: 06/28/19 18:35 Proposed Procedures p Cystoscopy WITH FLOUROSCOPY(Bilateral) - Pj Poon MD s Ureteral Stent Placement(Bilateral) - Pj Poon MD
--- NOTE | 2019-06-28 18:21 | P.ANESASSM_ITS ---
Pre-Anesthetic Assessment Pre-Anesthetic Assessment: Height/Weight: Height 1.45 m Preop Diagnosis: Bilateral hydronephrosis/UTI Proposed Procedure: Operation Date: 06/28/19 18:10 Proposed Procedures p Cystoscopy(Not Applicable) - Pj Poon MD Operation Date: 06/28/19 18:35 Proposed Procedures p Cystoscopy WITH FLOUROSCOPY(Bilateral) - Pj Poon MD s Ureteral Stent Placement(Bilateral) - Pj Poon MD Familial anesthetic complications: None Was Beta Sage taken within 24 hours: Yes Last intake: Ate milk, orange juice, and pork at 0600 (will proceed with RSI as case is called emergent). Patient informed of RSI Social: Social History: Tobacco Packs per day: 0.5 ppd Exam: Pre-Anes Outpt Exam: alert, oriented x 3, clear to auscultation bilaterally and regular rate & rhythm Airway: Cervical ROM: WNL MP: 1 Additional comments: no teeth Pulmonary: Pulmonary: COPD CV/HEM: CV/HEM: Angina (Stable), CAD, CHF, HTN and PVD Comments: took plavix this morning : : Chronic renal failure Hepatic: Hepatic: None reported GI: GI: GERD Comments: intestinal malaborption Metabolic: Metabolic: DM (DM type I), Morbid obesity and Thyroid Musc/skel: Comments: B/L AKA Neuropsych: Neuropsych: CVA Comments: encephalopathy Anesthetic Plan: ASA status: 4E Anesthesia: General Risk of > 500 ml blood loss (7ml/kg in children): No PFSH Anesthesia PFSH: Social History Smoking and tobacco status: current every day smoker cigarettes Packs smoked per day: 0.5 Alcohol intake: never Housing: Long Term Marital status: / Current occupational status: disabled Data Anesthesia Cardiac Studies: No Data to Display
[2019-06-28 18:32] LABS: Glucose Point of Care 134 mg/dL (70-110)
--- NOTE | 2019-06-28 18:35 | P.OP_ITS ---
Operative Report Date of procedure: June 28, 2019 Pre-op Diagnosis: Bilateral hydronephrosis/UTI Post-op Diagnosis: Same Procedure Done: Cystoscopy, removal of LEFT indwelling stent. Replacement of bilateral ureteral stents. Pathology: none sent Surgeon: Pj Poon Anesthesia: General Estimated blood loss: Minimal Urine output: Not measured Condition: stable Disposition: PACU Brief History: Ms. Guidry is a very pleasant but debilitated 59-year-old white female with a history of recurrent urinary tract infection, recent hospitalization for combination bacterial and fungal UTI/sepsis with prolonged intravenous treatment with antifungal and antibiotic. At time of first urologic evaluation during that hospital stay she was discovered to have recurrent bilateral hydronephrosis. She has had intermittent hydronephrosis well-documented over the last several years of unclear etiology. Initially it was felt that it might be related to bilateral distal ureteral obstruction from thickened bladder wall related to chronic cystitis but at time of recent stent placement it was felt that it was more consistent with intraureteral obstruction from sediment related to her yeast infection. After a full course of caspofungin it was decided to try and remove 1 of her stents in hopes of becoming stent free primarily with concern related to the s tents acting as a nidus of infection. Unfortunately within 24 hours of stent removal she developed fever. Today I was contacted in my office by the halfway and recommended an ultrasound and it showed hydronephrosis of the non-stented kidney. Urine cultures have been obtained a couple days ago at time of placement of Rocephin and the cultures demonstrated Klebsiella. I do not have the details of that currently. She continued to be progressively ill and her white count was 18,000 today at the halfway. I was contacted by her attending at [facility] and recommended direct admission for stent placement. Dr. Hill and I reviewed the case and agreed that stent placement at this point made most sense with some potential other longer-term options including chronic indwelling ureteral stents with routine changes versus larger bore percutaneous nephrostomy tubes. All of the above have been discussed on multiple occasions with the patient. It is clear that she has transitioned into a status of need for chronic upper urinary tract drainage for the above- mentioned reasons. Procedure: After emergent evaluation examination and obtaining of informed consent she was taken to the operating suite on 06/28/2019 where general anesthesia was administered without difficulty. Prepped and draped in the usual sterile fashion in supine position pain careful attention to voiding pressure points. She is status post bilateral AKA and her upper thighs were supported carefully. Appropriate timeout was performed, no SCDs, antibiotics administered, beta-duarte protocol confirmed. 21 Haitian cystoscope with 30 degree lens was introduced to the urethral meatus and advanced into the bladder under videoscopy. The unstented RIGHT ureter was first addressed. And a flexible tip guidewire was easily advanced up the ureter into appropriate position. An 8.5 Haitian by 26 cm double-pigtail stent was advanced without difficulty into appropriate position as confirmed via fluoroscopy and cystoscopy. A flexible tip guidewire was passed after the LEFT indwelling stent on the opposite side was grasped with grasping forceps and removed under fluoroscopic monitoring. An 8.5 Haitian by 26 cm double-pigtail stent was advanced over the guidewire through the cystoscope into appropriate position as confirmed via fluoroscopy. Both stents were confirmed to be draining. The bladder was then drained with a 16 Haitian Morales catheter and the procedure was completed. Tolerated procedure well without complications and was awakened in the operating room and returned recovery in stable condition.
[2019-06-28] MEDS: piperacillin-tazobactam 3.375 GM in sodium chloride 0.9% (plus) 50 ML IV (18:47)
[2019-06-28] MEDS: sodium chloride 0.9% 1,000 ML 75 ML IV (18:47)
--- NOTE | 2019-06-28 18:49 | SC_ITS ---
WS: [id number] C-ARM RADIOGRAPHS ABDOMEN; 2 IMAGES HISTORY: bilateral stents COMPARISON: None available. Intraoperative imaging during bilateral ureteral stent placement. Single image demonstrates pigtail i s coiled in the expected location of the renal pelves. SC/C-arm FL for Urology IMPRESSION: Intraoperative imaging during bilateral ureteral stent placements.
--- NOTE | 2019-06-28 18:56 | P.HP_ITS ---
Providers/Chief Complaint Admitting Physician: Allie Hill MD Primary Care Provider: Monika Fowler MD, [facility] [place] Chief Complaint: hydrofreeisis,syscoptopy,florotopy,bilateral urite History of Present Illness I was called by Dr. Fowler to admit patient as a direct transfer. Once patient arrived I was called by boiler house supervisor to notify patient is here and to come assess. Prior to my assessment, patient has been taken to the OR. History is obtained by review of chart, older notes and as as signout from Dr. Fowler. Leelee Guidry is a 59 year old female with history of recurrent urinary tract infections, with intertrigo, vulvovaginal candidiasis, and candiduria with Aida glabrata resistant to Diflucan, sensitive to caspofungin. She was recently admitted between 06/07-06/16 seen and assessed by urology, with placement of bilateral ureteral stents, with subsequent improvement in acute kidney injury. She received a course of caspofungin during the admission and was d ischarged with recommendatiosn to continue same at [place]. Previous urine cx have been with Klebsiella pn. Her sepsis resolved post procedure and she was clinically stable. She followed with urology on 06/23 at which time one of the stents was removed. Within 24 hrs, she developed fever >103F per [place] history. urine cx was with growth of Klebsiella, with pending susceptibility result. US showed hydronephrosis. She is returning today to go to the OR for placement of stent and establish urinary flow. There are no vital signs charted in the system, so I am uncertain of these. Zosyn and Caspofungin had been ordered to be given prior to procedure. Review of Systems General: Reports: other Medications/Allergies Allergies Allergy/AdvReac Type Severity Reaction Status Date / Time codeine Allergy NA Verified 06/28/19 18:43 meperidine Allergy NA Verified 06/28/19 18:43 PFSH Acute PFSH: Medical History ASHD (arteriosclerotic heart disease) Bilateral hydronephrosis Bladder wall thickening Candidal UTI (urinary tract infection) Carotid stenosis, bilateral Chronic cystitis COPD (chronic obstructive pulmonary disease) Diabetes Essential hypertension Hydronephrosis of right kidney Hyperlipidemia PAD (peripheral artery disease) Surgical History S/P amputation of foot S/P below knee amputation S/P cataract extraction S/P tubal ligation Status post bilateral above knee amputation Status post tubal ligation Family History Family/Other Psychiatric illness CAD (coronary artery disease) Diabetes Cancer Stroke Social History Smoking and tobacco status: current every day smoker cigarettes Packs smoked per day: 0.5 Alcohol intake: never Housing: Long-Term Marital status: / Current occupational status: disabled Physical Exam Narrative: EXAM NARRATIVE: Patient not seen as away in OR. A&P Additional A&P Information Patient returning with fever, given recent history, appears most likely to be 2/2 UTI with possible obstrcution to urinary outflow. Empiric Zosyn and Casopfungin for now. CBC,CMP,UA,urine cx, Blood cx, EKG and CXR h/o Ischemic cardiomyopathy: Last echo done in May 2018 shows an EF of 35 to 40% with grade 3 diastolic dysfunction with moderate hypokinesis of septum, anteroseptal and apical segments. Continue with Lopressor 25 twice daily. Type 2 diabetes: Sliding scale at moderate dose Continue with chronic medications like Remeron pancrelipase, levothyroxine, Flomax, pregabalin at home dose. 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
--- NOTE | 2019-06-28 19:21 | SUR.PHASEI ---
1920 PATIENT TO OR AT THIS TIME FROM OR. RR EVEN AND UNLABORED. SPO2 97% ON RA. GIRARD CATH IN PLACE, DRAINING BEBO COLORED URINE.
--- NOTE | 2019-06-28 19:57 | SUR.PHASEI ---
1946 PATIENT TO MED SURG AT THIS TIME. DENIES PAIN. A/OX3. RR EVEN AND UNLABORED. GIRARD CATH IN PLACE, DRAINING BEBO COLORED URINE.
--- NOTE | 2019-06-28 20:09 | ECG_ITS ---
Measurements Intervals [place] Rate: 81 P: 60 MN: 175 QRS: 70 QRSD: 107 T: 31 QT: 372 QTc: 433 SINUS RHYTHM POSSIBLE LEFT ATRIAL ENLARGEMENT [-0.1mV P WAVE IN V1/V2] LOW QRS VOLTAGE IN PRECORDIAL LEADS [QRS DEFLECTION < 1.0 mV IN CHEST LEADS] ANTEROSEPTAL MYOCARDIAL INFARCTION [40+ ms Q WAVE IN V1-V4], PROBABLY OLD Compared to ECG 01/27/2019 23:35:34 Sinus arrhythmia no longer present Myocardial infarct finding still present Electronically Signed On 06-29-2019 20:22:50 CDT by Kathryn Douglas M.D. [id number]
[2019-06-28] MEDS: sodium chloride 0.9% 1,000 ML 30 ML IV (20:38)
[2019-06-28] MEDS: mirtazapine 15 mg Tablet PO (20:39)
[2019-06-28] MEDS: atorvastatin 40 mg Tablet 20 MG PO (20:39)
[2019-06-28] MEDS: cetylpyridinium Lozenge 1 EACH MUCOUS MEM (20:39)
[2019-06-28] MEDS: sertraline 100 mg Tablet PO (20:39)
[2019-06-28 21:21] LABS: Glucose Point of Care 116 mg/dL (70-110)
[2019-06-28 21:44] LABS: Basophils # 0.1 10^3/uL (0.0-0.1); Basophils % 0.6 %; Eosinophils # 0.6 10^3/uL (0.0-0.8); Eosinophils % 3.1 %; Hematocrit 33.5 % (37.0-47.0); Hemoglobin 9.5 g/dL (11.5-15.3); Lymphocytes # 1.8 10^3/uL (0.8-4.8); Lymphocytes % 9.8 %; Mean Corpuscular HGB Conc 28.4 g/dL (30.0-36.0); Mean Corpuscular Hemoglobin 23.9 pg (28.0-34.0); Mean Corpuscular Volume 84.2 fL (81-99); Mean Platelet Volume 10.2 fL (7.4-10.4); Monocytes # 2.2 10^3/uL (0.2-0.9); Monocytes % 12.1 %; Neutrophils # 13.2 10^3/uL (1.8-7.7); Neutrophils % 72.7 %; Nucleated Red Blood Cells % 0.1 %; Platelet Count 600 10^3/cmm (130-400); Red Blood Count 3.98 10^6/uL (4.1-5.3); White Blood Count 18.1 10^3/uL (4.0-10.0)
[2019-06-28 22:06] LABS: Alanine Aminotransferase 8 U/L (0-33); Albumin Level 2.7 g/dL (3.5-5.2); Alkaline Phosphatase 233 IU/L (35-105); Aspartate Amino Transferase 11 U/L (0-32); Blood Urea Nitrogen 40 mg/dL (6-20); Calcium 8.7 mg/dL (8.5-10.5); Carbon Dioxide 15 mmol/L (22-29); Chloride 113 mmol/L (98-107); Globulin 4.6 g/dL (1.3-4.6); Glomerular Filtration Rate 35.7 mL/min (90-130); Glucose 95 mg/dL (65-115); Osmolality Calculated 287 mOsm/kg (285-295); Sodium 140 mmol/L (136-145); Total Bilirubin 0.2 mg/dL (0.15-1.2); Total Protein 7.3 g/dL (6.6-8.7)
[2019-06-29] VITALS (8 sets, daily range): BP systolic 111–130; BP diastolic 56–76; PULSE 67–108; RESP 16–18; TEMP 36.7–37.4; O2SAT 94–97
--- NOTE | 2019-06-29 00:09 | ECG_ITS ---
Measurements Intervals [place] Rate: 79 P: 60 [place]: 164 QRS: 60 QRSD: 118 T: 31 QT: 382 QTc: 439 SINUS RHYTHM WITH OCCASIONAL VENTRICULAR PREMATURE COMPLEXES POSSIBLE LEFT ATRIAL ENLARGEMENT [-0.1mV P WAVE IN V1/V2] LOW QRS VOLTAGE IN PRECORDIAL LEADS [QRS DEFLECTION < 1.0 mV IN CHEST LEADS] ANTEROSEPTAL MYOCARDIAL INFARCTION [40+ ms Q WAVE IN V1-V4], PROBABLY OLD Compared to ECG 01/27/2019 23:35:34 Ventricular premature complex(es) now present Sinus arrhythmia no longer present Myocardial infarct finding still present Electronically Signed On 06-29-2019 20:22:55 CDT by Kathryn Douglas M.D. [id number]
[2019-06-29] MEDS: piperacillin-tazobactam 3.375 GM in sodium chloride 0.9% (plus) 50 ML IV ×3 (01:48→18:24)
[2019-06-29 02:53] LABS: Lactic Sepsis W/Reflex 0.7 mmol/L (0.5-2.2); Troponin(5th) Baseline 70 ng/mL (0-10)
[2019-06-29 03:11] LABS: Add Urine Culture? Yes; Add Urine Microscopic? YES; Bacteria Urine 2+; Bilirubin Urine Neg (NEGATIVE); Blood Urine 3+ (Negative); Glucose Urine UA Norm (Normal); Ketones Urine Negative (Negative); Leukocyte Esterase Urine 2+ (Negative); Nitrate Urine Negative (Negative); Protein Urine 1+ (Negative); Specific Gravity, Urine 1.015 (1.005-1.030); Squamous Epithelial Cell Urine 0-4 (0-5); Urine Appearance Cloudy (CLEAR); Urine Color Yellow (Yellow); Urobilinogen Urine Norm (Negative); WBC Urine >100 /hpf (0-5); pH Urine 5 (5-7)
[2019-06-29 05:32] LABS: Basophils # 0.1 10^3/uL (0.0-0.1); Basophils % 0.9 %; Eosinophils # 0.6 10^3/uL (0.0-0.8); Eosinophils % 3.9 %; Hematocrit 31.3 % (37.0-47.0); Lymphocytes # 1.6 10^3/uL (0.8-4.8); Lymphocytes % 10.4 %; Mean Corpuscular HGB Conc 28.8 g/dL (30.0-36.0); Mean Corpuscular Hemoglobin 23.7 pg (28.0-34.0); Mean Corpuscular Volume 82.6 fL (81-99); Mean Platelet Volume 10.2 fL (7.4-10.4); Monocytes # 1.7 10^3/uL (0.2-0.9); Monocytes % 11.3 %; Neutrophils # 10.9 10^3/uL (1.8-7.7); Neutrophils % 72.1 %; Nucleated Red Blood Cells % 0 %; Platelet Count 551 10^3/cmm (130-400); Red Blood Count 3.79 10^6/uL (4.1-5.3); Red Cell Distribution Width 21.9 % (12.1-15.1); White Blood Count 15.1 10^3/uL (4.0-10.0)
[2019-06-29] MEDS: pantoprazole DR 40 mg Tablet PO (05:37)
[2019-06-29 05:58] LABS: Alanine Aminotransferase 7 U/L (0-33); Albumin Level 2.5 g/dL (3.5-5.2); Alkaline Phosphatase 220 IU/L (35-105); Anion Gap 19.1 (5-19); Aspartate Amino Transferase 11 U/L (0-32); Blood Urea Nitrogen 31 mg/dL (6-20); Calcium 8.6 mg/dL (8.5-10.5); Carbon Dioxide 15 mmol/L (22-29); Chloride 114 mmol/L (98-107); Globulin 3.6 g/dL (1.3-4.6); Glomerular Filtration Rate 35.7 mL/min (90-130); Glucose 94 mg/dL (65-115); Osmolality Calculated 293 mOsm/kg (285-295); Potassium 5.1 mmol/L (3.5-5.1); Sodium 143 mmol/L (136-145); Total Bilirubin 0.2 mg/dL (0.15-1.2); Total Protein 6.1 g/dL (6.6-8.7)
[2019-06-29 06:00] LABS: Troponin 5 2HR 63.36 ng/mL (0-10)
[2019-06-29 06:14] LABS: Glucose Point of Care 93 mg/dL (70-110)
[2019-06-29] MEDS: aspirin 81 mg EC Tablet PO (08:11)
[2019-06-29] MEDS: pregabalin 100 mg Capsule 200 MG PO ×2 (08:11→17:49)
[2019-06-29] MEDS: ARIPiprazole 10 mg Tablet 5 MG PO (08:11)
[2019-06-29] MEDS: levothyroxine 150 mcg Tablet 75 MCG PO (08:12)
[2019-06-29] MEDS: clopidogrel 75 mg Tablet PO (08:12)
[2019-06-29] MEDS: tamsulosin 0.4 mg Capsule PO ×2 (08:12→17:49)
[2019-06-29] MEDS: metoprolol succinate ER (24 HR) 25 mg Tablet PO (08:12)
[2019-06-29] MEDS: clotrimazole 1% cream 30 gm 1 APPLIC TOPICAL ×2 (08:13→18:25)
[2019-06-29 09:01] LABS: Troponin 5 6HR 57.44 ng/mL (0-10)
[2019-06-29] MEDS: ascorbic acid 500 mg Tablet 1000 MG PO ×2 (09:12→17:49)
[2019-06-29] MEDS: buPROPion SR (12 HR) 100 mg Tablet PO (09:13)
[2019-06-29 11:20] LABS: Glucose Point of Care 105 mg/dL (70-110)
[2019-06-29] MEDS: sodium chloride 0.9% 1,000 ML 75 ML IV ×2 (13:05→20:16)
--- NOTE | 2019-06-29 16:46 | P.PN_ITS ---
Subjective Subjective: Interval history: tmax 99.1F, BP stable, patient without any acute complaints at this time. s/p placement of new R side double J stent and exchange of left sided stent. tolerated procdure well Medications: Reviewed: Yes Vitals/I&O/Wt Last Vital Signs Temp 99.1 F 06/29/19 15:00 Pulse 78 06/29/19 15:00 Resp 18 06/29/19 15:00 BP 130/74 06/29/19 15:00 Pulse Ox 94 06/29/19 15:00 06/29/19 06/29/19 06/29/19 06:59 14:59 22:59 Intake Total 50 / 100 1626 / 1626 Output Total 800 / 800 Balance -750 / -700 1626 / 1626 Weight last 48 hrs Weight 66.877 kg Physical Exam Narrative: EXAM NARRATIVE: GEN: Awake, alert, oriented CVS: S1S2 N RS: CTA B/L Abd: Soft, nt/nd , bs+ Urinary Catheter Management^: Morales Latex: Cath Placed During This Visit: yes Reason for Continuing Indwelling Catheter: Acute Urinary Retention or Obstr uction Urinary Catheter Date of Insertion: 06/28/19 Urinary Catheter Time of Insertion: 19:10 Morales: Cath Placed During This Visit: yes Reason for Continuing Indwelling Catheter: Acute Urinary Retention or Obstruction Urinary Catheter Date of Insertion: 06/28/19 Data : 06/30/19 05:44 06/30/19 05:44 Micro: Microbiology 06/28/19 21:03 Blood Culture - Preliminary Blood SPECIMEN COLLECTED 06/28/19 21:08 Blood Culture - Preliminary Blood SPECIMEN COLLECTED A&P Assessment and plan (1) Candidal UTI (urinary tract infection): Status: Acute (2) Hydronephrosis of right kidney: Status: Acute (3) Urinary tract infection: Status: Acute (4) Bilateral hydronephrosis: Status: Acute (5) Chronic cystitis: Status: Acute Additional A&P Information # UTI with recurrent hydronepehrosis/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 - continue zosyn and caspofungin empirically Urine culture pending WBC downtrending Overall, Patient is colonized with C.Glabrata and recurrent obstruction appaers to be the trigger for recurrent episodes of UTI. Most pertinent factor in reducing recurrent episodes of UTI would be to maintain patency of urinary tract to ensure adequate flow. She may need frequent urological procedures such as indwelling stents exchanged at regular intervals vs PCN. Her stents as such may remain at high risk of recurrent obstrction as well owing to thick debris from inflammation as noted on previous procedures. While a trial of fci suppression with antifungals could potentially have been an option, this is limited by the fact that her isolate is C.glabrata which is only susceptible to iv echinocandins. Fluconazole, as expected is resistant with high RENO >128. There are no available breakpoints for voriconazole or posaconazole to favor their use in this situation, plus these drugs carry a risk of potential complications such as qtc prolongation and significant drug-drug interactions. Best course for now will be ensure adequate drainage and treat with short courses of abx/antifungals as these happen. For now, plan to use caspofungin to complete course of 7 days. [place] trying to arrange for this to continue upon discharge Zosyn for now. Urine cx from [place] with Klebsiella pn, no susceptibility available yet from records sent today. urine cx pending here # h/o Ischemic cardiomyopathy: Last echo done in May 2018 shows an EF of 35 to 40% with grade 3 diastolic dysfunction with moderate hypokinesis of septum, anteroseptal and apical segments. Continue with Lopressor 25 twice daily. # Type 2 diabetes: Sliding scale at moderate dose # Continue with chronic medications like Remeron pancrelipase, levothyroxine, Flomax, pregabalin at home dose. 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
[2019-06-29 16:54] LABS: Glucose Point of Care 89 mg/dL (70-110)
[2019-06-29] MEDS: HYDROcodone-acetaminophen 5-325 mg Tablet 1 TAB PO (17:54)
[2019-06-29] MEDS: atorvastatin 40 mg Tablet 20 MG PO (20:14)
[2019-06-29] MEDS: mirtazapine 15 mg Tablet PO (20:15)
[2019-06-29] MEDS: sertraline 100 mg Tablet PO (20:15)
[2019-06-29 21:22] LABS: Glucose Point of Care 111 mg/dL (70-110)
[2019-06-30] VITALS: BP 121/77; PULSE 75; RESP 18; TEMP 36.9; O2SAT 94
[2019-06-30] MEDS: piperacillin-tazobactam 3.375 GM in sodium chloride 0.9% (plus) 50 ML IV ×3 (01:14→16:01)
[2019-06-30 04:00] VITALS: BP 132/76; PULSE 81; RESP 18; TEMP 37.1; O2SAT 94
[2019-06-30] MEDS: pantoprazole DR 40 mg Tablet PO (05:20)
[2019-06-30 06:12] LABS: Basophils # 0.1 10^3/uL (0.0-0.1); Basophils % 0.7 %; Eosinophils # 0.9 10^3/uL (0.0-0.8); Hematocrit 31.6 % (37.0-47.0); Hemoglobin 8.9 g/dL (11.5-15.3); Lymphocytes # 1.3 10^3/uL (0.8-4.8); Lymphocytes % 8.8 %; Mean Corpuscular HGB Conc 28.2 g/dL (30.0-36.0); Mean Corpuscular Hemoglobin 23.7 pg (28.0-34.0); Mean Platelet Volume 10.3 fL (7.4-10.4); Monocytes # 1.4 10^3/uL (0.2-0.9); Monocytes % 9.4 %; Neutrophils # 11.2 10^3/uL (1.8-7.7); Neutrophils % 73.4 %; Nucleated Red Blood Cells % 0 %; Platelet Count 514 10^3/cmm (130-400); Red Blood Count 3.76 10^6/uL (4.1-5.3); Red Cell Distribution Width 21.9 % (12.1-15.1); White Blood Count 15.3 10^3/uL (4.0-10.0)
[2019-06-30 06:34] LABS: Glucose Point of Care 86 mg/dL (70-110)
[2019-06-30 06:36] LABS: Alanine Aminotransferase 7 U/L (0-33); Albumin Level 2.2 g/dL (3.5-5.2); Alkaline Phosphatase 214 IU/L (35-105); Anion Gap 16.2 (5-19); Aspartate Amino Transferase 14 U/L (0-32); Blood Urea Nitrogen 20 mg/dL (6-20); Calcium 8.6 mg/dL (8.5-10.5); Carbon Dioxide 15 mmol/L (22-29); Chloride 117 mmol/L (98-107); Creatinine Clr Calc Pharmacy 57.9566; Globulin 4.4 g/dL (1.3-4.6); Glucose 86 mg/dL (65-115); Osmolality Calculated 294 mOsm/kg (285-295); Potassium 4.2 mmol/L (3.5-5.1); Sodium 144 mmol/L (136-145); Total Bilirubin 0.2 mg/dL (0.15-1.2); Total Protein 6.6 g/dL (6.6-8.7)
[2019-06-30 08:00] VITALS: BP 148/81; PULSE 78; RESP 18; TEMP 36.8; O2SAT 96
--- NOTE | 2019-06-30 08:26 | ANE.PACU2 ---
 Inpatient post-anesthesia follow up: Airway intact: Yes Vital signs: Temperature 98.3 F Pulse Rate 78 Respiratory Rate 18 Blood Pressure 148/81 Pulse Oximetry 96 Oxygen Delivery Me thod Room Air Oxygen Flow Rate Fraction of Inspir ed Oxygen Hydration adequate: Yes Nausea and vomiting: No Mental status: Baseline
[2019-06-30] MEDS: ARIPiprazole 10 mg Tablet 5 MG PO (09:15)
[2019-06-30] MEDS: buPROPion SR (12 HR) 100 mg Tablet PO (09:15)
[2019-06-30] MEDS: clopidogrel 75 mg Tablet PO (09:16)
[2019-06-30] MEDS: tamsulosin 0.4 mg Capsule PO ×2 (09:16→17:11)
[2019-06-30] MEDS: metoprolol succinate ER (24 HR) 25 mg Tablet PO (09:16)
[2019-06-30] MEDS: ascorbic acid 500 mg Tablet 1000 MG PO ×2 (09:16→17:11)
[2019-06-30] MEDS: pregabalin 100 mg Capsule 200 MG PO ×2 (09:16→17:11)
[2019-06-30] MEDS: levothyroxine 150 mcg Tablet 75 MCG PO (09:16)
[2019-06-30] MEDS: aspirin 81 mg EC Tablet PO (09:17)
[2019-06-30] MEDS: clotrimazole 1% cream 30 gm 1 APPLIC TOPICAL ×2 (11:13→17:12)
[2019-06-30 11:30] LABS: Glucose Point of Care 76 mg/dL (70-110)
[2019-06-30 12:00] VITALS: BP 159/75; PULSE 84; RESP 18; TEMP 36.7; O2SAT 97
[2019-06-30 16:00] VITALS: BP 155/77; PULSE 77; RESP 18; TEMP 37.2; O2SAT 97
[2019-06-30] MEDS: sodium chloride 0.9% 1,000 ML 75 ML IV (16:01)
[2019-06-30 17:37] LABS: Glucose Point of Care 172 mg/dL (70-110)
[2019-06-30 17:37] LABS: Glucose Point of Care 205 mg/dL (70-110)
[2019-06-30 17:37] LABS: Glucose Point of Care 132 mg/dL (70-110)
--- NOTE | 2019-06-30 19:18 | PM.PN ---
Subjective Subjective: Interval history: Afberile, hemodynamically stable Medications: Reviewed: Yes Vitals/I&O/Wt Last Vital Signs Temp 98.9 F 06/30/19 16:00 Pulse 77 06/30/19 16:00 Resp 18 06/30/19 16:00 BP 155/77 06/30/19 16:00 Pulse Ox 97 06/30/19 16:00 06/30/19 06/30/19 06/30/19 06:59 14:59 22:59 Intake Total 50 / 3114.75 770 / 770 1480 / 2250 Output Total 1400 / 1400 1000 / 1000 700 / 1700 Balance -1350 / 1714.75 -230 / -230 780 / 550 Weight last 48 hrs Weight 65.856 kg Weight 66.877 kg Physical Exam Narrative: EXAM NARRATIVE: GEN: Awake, alert, oriented CVS: S1S2 N RS: CTA B/L Abd: Soft, nt/nd , bs+ Urinary Catheter Management^: Morales Latex: Cath Placed During This Visit: yes Reason for Continuing Indwelling Catheter: Assist Healing of Perineal & Sacral Wounds- Incontinent Patients Urinary Catheter Date of Insertion: 06/28/19 Urinary Catheter Time of Insertion: 19:10 Morales: Cath Placed During This Visit: yes Reason for Continuing Indwelling Catheter: Assist Healing of Perineal & Sacral Wounds- Incontinent Patients Urinary Catheter Date of Insertion: 06/28/19 Data : 06/30/19 05:44 06/30/19 05:44 Micro: Microbiology 06/29/19 02:20 Urine Culture - Preliminary Urine,Clean Catch 06/28/19 21:08 Blood Culture - Preliminary Blood NEGATIVE TO DATE 06/28/19 21:03 Blood Culture - Preliminary Blood NEGATIVE TO DATE A&P Assessment and plan (1) Candidal UTI (urinary tract infection): Status: Acute (2) Hydronephrosis of right kidney: Status: Acute (3) Urinary tract infection: Status: Acute (4) Bilateral hydronephrosis: Status: Acute (5) Chronic cystitis: Status: Acute Additional A&P Information # UTI with recurrent hydronepehrosis/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 s/p placement of R ureteric stent and replacement of L stent - continue zosyn and caspofungin empirically Urine culture pending WBC downtrending Overall, Patient is colonized with C.Glabrata and recurrent obstruction appaers to be the trigger for recurrent episodes of UTI. Most pertinent factor in reducing recurrent episodes of UTI would be to maintain patency of urinary tract to ensure adequate flow. She may need frequent urological procedures such as indwelling stents exchanged at regular intervals vs PCN. Her stents as such may remain at high risk of recurrent obstrction as well owing to thick debris from inflammation as noted on previous procedures. While a trial of mcc suppression with antifungals could potentially have been an option, this is limited by the fact that her isolate is C.glabrata which is only susceptible to iv echinocandins. Fluconazole, as expected is resistant with high RENO >128. There are no available breakpoints for voriconazole or posaconazole to favor their use in this situation, plus these drugs carry a risk of potential complications such as qtc prolongation and significant drug-drug interactions. Best course for now will be ensure adequate drainage and treat with short courses of abx/antifungals as these happen. For now, plan to use caspofungin to complete course of 7 days. [place] trying to arrange for this to continue upon discharge Zosyn for now. Urine cx from [place] with Klebsiella pn, no susceptibility available yet from records sent today. urine cx pending here # h/o Ischemic cardiomyopathy: Last echo done in May 2018 shows an EF of 35 to 40% with grade 3 diastolic dysfunction with moderate hypokinesis of septum, anteroseptal and apical segments. Continue with Lopressor 25 twice daily. # Type 2 diabetes: Sliding scale at moderate dose # Continue with chronic medications like Remeron pancrelipase, levothyroxine, Flomax, pregabalin at home dose. 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
[2019-06-30 19:47] VITALS: BP 158/80; PULSE 79; RESP 17; TEMP 37.2; O2SAT 96
[2019-06-30 20:45] LABS: Glucose Point of Care 177 mg/dL (70-110)
[2019-06-30] MEDS: atorvastatin 40 mg Tablet 20 MG PO (20:54)
[2019-06-30] MEDS: sertraline 100 mg Tablet PO (20:54)
[2019-06-30] MEDS: mirtazapine 15 mg Tablet PO (20:55)
[2019-07-01] VITALS: BP 152/79; PULSE 75; RESP 17; TEMP 37.2; O2SAT 96
[2019-07-01] MEDS: piperacillin-tazobactam 3.375 GM in sodium chloride 0.9% (plus) 50 ML IV ×2 (01:22→09:55)
[2019-07-01 04:00] VITALS: BP 148/75; PULSE 73; RESP 16; TEMP 37.2; O2SAT 95
--- NOTE | 2019-07-01 04:30 | PC.NURSE ---
No acute issues over night, patient rested well with minimal pain, only discomfort. No c/o lower abd pain/distention, catheter patent and draining appropriately. Urine output of approx 1250ml cloudy pink tinged urine.
[2019-07-01] MEDS: sodium chloride 0.9% 1,000 ML 75 ML IV ×2 (04:57→14:02)
[2019-07-01] MEDS: pantoprazole DR 40 mg Tablet PO (05:19)
[2019-07-01 05:58] LABS: Basophils # 0.1 10^3/uL (0.0-0.1); Basophils % 0.6 %; Eosinophils % 7.1 %; Hematocrit 30.7 % (37.0-47.0); Hemoglobin 8.9 g/dL (11.5-15.3); Lymphocytes # 1.7 10^3/uL (0.8-4.8); Lymphocytes % 12.3 %; Mean Corpuscular Hemoglobin 24.2 pg (28.0-34.0); Mean Corpuscular Volume 83.4 fL (81-99); Mean Platelet Volume 10.2 fL (7.4-10.4); Monocytes # 1.5 10^3/uL (0.2-0.9); Monocytes % 11.2 %; Neutrophils # 9.1 10^3/uL (1.8-7.7); Neutrophils % 66.8 %; Nucleated Red Blood Cells % 0 %; Platelet Count 474 10^3/cmm (130-400); Red Blood Count 3.68 10^6/uL (4.1-5.3); Red Cell Distribution Width 21.6 % (12.1-15.1); White Blood Count 13.6 10^3/uL (4.0-10.0)
[2019-07-01 06:15] LABS: Alanine Aminotransferase 6 U/L (0-33); Albumin Level 2.3 g/dL (3.5-5.2); Alkaline Phosphatase 205 IU/L (35-105); Anion Gap 16.9 (5-19); Aspartate Amino Transferase 15 U/L (0-32); Blood Urea Nitrogen 11 mg/dL (6-20); Calcium 8.4 mg/dL (8.5-10.5); Carbon Dioxide 17 mmol/L (22-29); Chloride 114 mmol/L (98-107); Globulin 4.2 g/dL (1.3-4.6); Glomerular Filtration Rate 56.9 mL/min (90-130); Glucose 138 mg/dL (65-115); Osmolality Calculated 296 mOsm/kg (285-295); Potassium 3.9 mmol/L (3.5-5.1); Sodium 144 mmol/L (136-145); Total Bilirubin 0.2 mg/dL (0.15-1.2); Total Protein 6.5 g/dL (6.6-8.7)
[2019-07-01 06:30] LABS: Glucose Point of Care 140 mg/dL (70-110)
[2019-07-01 07:48] VITALS: BP 151/74; PULSE 76; RESP 17; TEMP 37.1; O2SAT 95
[2019-07-01] MEDS: pregabalin 100 mg Capsule 200 MG PO ×2 (09:52→18:22)
[2019-07-01] MEDS: metoprolol succinate ER (24 HR) 25 mg Tablet PO (09:53)
[2019-07-01] MEDS: levothyroxine 150 mcg Tablet 75 MCG PO (09:53)
[2019-07-01] MEDS: aspirin 81 mg EC Tablet PO (09:53)
[2019-07-01] MEDS: tamsulosin 0.4 mg Capsule PO ×2 (09:53→18:22)
[2019-07-01] MEDS: ascorbic acid 500 mg Tablet 1000 MG PO ×2 (09:53→18:22)
[2019-07-01] MEDS: clopidogrel 75 mg Tablet PO (09:54)
[2019-07-01] MEDS: buPROPion SR (12 HR) 100 mg Tablet PO (09:54)
[2019-07-01] MEDS: ARIPiprazole 10 mg Tablet 5 MG PO (09:54)
[2019-07-01] MEDS: clotrimazole 1% cream 30 gm 1 APPLIC TOPICAL ×2 (10:22→18:25)
--- NOTE | 2019-07-01 10:45 | PC.SOCIAL ---
IMM Page 2 of IMM explained to and signed by patient. She verbalizes understanding. Initialed, dated, and timed and placed in chart. Copy provided to patient.
[2019-07-01 11:12] LABS: Glucose Point of Care 286 mg/dL (70-110)
[2019-07-01 12:00] VITALS: BP 176/71; PULSE 86; RESP 17; TEMP 36.5; O2SAT 93
--- NOTE | 2019-07-01 13:30 | PM.PN ---
Subjective Subjective: Interval history: This morning patient is laying in bed, has no complaints, is wondering when she will be eventually going to the long term, will waiting on caspofungin approval, no fevers, no chills, no nausea, no vomiting Vitals/I&O/Wt Last Vital Signs Temp 97.7 F 07/01/19 12:00 Pulse 86 07/01/19 12:00 Resp 17 07/01/19 12:00 BP 176/71 07/01/19 12:00 Pulse Ox 93 07/01/19 12:00 06/30/19 07/01/19 07/01/19 22:59 06:59 14:59 Intake Total 1530 / 2550 1020 / 3570 720 / 720 Output Total 700 / 1700 1250 / 2950 Balance 830 / 850 -230 / 620 719 / 719 Weight last 48 hrs Weight 68.237 kg Weight 65.856 kg Physical Exam Const: COMMON NORMALS: no apparent distress and oriented x3 HENMT: COMMON NORMALS: normocephalic HEAD & SCALP: normocephalic Neck/C-Spine: COMMON NORMALS: no JVD Resp: COMMON NORMALS: normal respiratory effort, no retractions, no use of accessory muscles and clear to auscultation bilaterally AUSCULTATION: clear to auscultation bilaterally Cardio: COMMON NORMALS: no JVD, regular rate, regular rhythm, S1 normal heart sound and S2 normal heart sound RATE: regular rate RHYTHM: regular rhythm HEART SOUNDS: S1 normal and S2 normal GI: COMMON NORMALS: normal to inspection, nondistended, normoactive bowel sounds, soft to palpation, non-tender, no hepatosplenomegaly, no masses and no bruits PALPATION: Yes soft and Yes no hepatosplenomegaly Neuro: COMMON NORMALS: oriented x3 Psych: COMMON NORMALS: mental status grossly normal Urinary Catheter Management^: Morales Latex: Cath Placed During This Visit: yes Reason for Continuing Indwelling Catheter: Assist Healing of Perineal & Sacral Wounds- Incontinent Patients Urinary Catheter Date of Insertion: 06/28/19 Urinary Catheter Time of Insertion: 19:10 Morales: Cath Placed During This Visit: yes Reason for Continuing Indwelling Catheter: Accurate Measurement of Urinary Output in Critically Ill Patients Urinary Catheter Date of Insertion: 06/28/19 Data : 07/01/19 05:19 07/01/19 05:19 Micro: Microbiology 06/29/19 02:20 Urine Culture - Final Urine,Clean Catch A&P Assessment and plan (1) Candidal UTI (urinary tract infection): Status: Acute (2) Hydronephrosis of right kidney: Status: Acute (3) Urinary tract infection: Status: Acute (4) Bilateral hydronephrosis: Status: Acute (5) Chronic cystitis: Status: Acute Additional A&P Information # UTI with recurrent hydronepehrosis/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 s/p placement of R ureteric stent and replacement of L stent - continue zosyn and caspofungin empirically Urine culture negative WBC downtrending to 13.6 Overall, Patient is colonized with C.Glabrata and recurrent obstruction appaers to be the trigger for recurrent episodes of UTI. Most pertinent factor in reducing recurrent episodes of UTI would be to maintain patency of urinary tract to ensure adequate flow. She may need frequent urological procedures such as indwelling stents exchanged at regular intervals vs PCN. Her stents as such may remain at high risk of recurrent obstrction as well owing to thick debris from inflammation as noted on previous procedures. While a trial of termite technician suppression with antifungals could potentially have been an option, this is limited by the fact that her isolate is C.glabrata which is only susceptible to iv echinocandins. Fluconazole, as expected is resistant with high RENO >128. There are no available breakpoints for voriconazole or posaconazole to favor their use in this situation, plus these drugs carry a risk of potential complications such as qtc prolongation and significant drug-drug interactions. Best course for now will be ensure adequate drainage and treat with short courses of abx/antifungals as these happen. For now, plan to use caspofungin to complete course of 7 days. NH trying to arrange for this to continue upon discharge ucx negative, will coutinue kaitlin # h/o Ischemic cardiomyopathy: Last echo done in May 2018 shows an EF of 35 to 40% with grade 3 diastolic dysfunction with moderate hypokinesis of septum, anteroseptal and apical segments. Continue with Lopressor 25 twice daily. # Type 2 diabetes: Sliding scale at moderate dose # Continue with chronic medications like Remeron pancrelipase, levothyroxine, Flomax, pregabalin at home dose. 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
[2019-07-01 16:00] VITALS: BP 169/81; PULSE 82; RESP 17; TEMP 36.6; O2SAT 95
[2019-07-01 17:27] LABS: Glucose Point of Care 195 mg/dL (70-110)
[2019-07-01 19:45] VITALS: BP 167/80; PULSE 80; RESP 16; TEMP 36.7; O2SAT 96
[2019-07-01 20:21] LABS: Glucose Point of Care 167 mg/dL (70-110)
[2019-07-01] MEDS: mirtazapine 15 mg Tablet PO (20:33)
[2019-07-01] MEDS: atorvastatin 40 mg Tablet 20 MG PO (20:33)
[2019-07-01] MEDS: sertraline 100 mg Tablet PO (20:33)
[2019-07-02] VITALS: BP 139/68; PULSE 70; RESP 16; TEMP 36.4; O2SAT 95
[2019-07-02] MEDS: sodium chloride 0.9% 1,000 ML 75 ML IV (01:39)
[2019-07-02 04:00] VITALS: BP 146/77; PULSE 74; RESP 16; TEMP 36.9; O2SAT 95
[2019-07-02] MEDS: pantoprazole DR 40 mg Tablet PO (05:26)
[2019-07-02 05:36] LABS: Basophils # 0.1 10^3/uL (0.0-0.1); Basophils % 0.6 %; Eosinophils # 0.9 10^3/uL (0.0-0.8); Eosinophils % 6.6 %; Hematocrit 32.7 % (37.0-47.0); Hemoglobin 9.3 g/dL (11.5-15.3); Lymphocytes # 2.4 10^3/uL (0.8-4.8); Lymphocytes % 18.7 %; Mean Corpuscular HGB Conc 28.4 g/dL (30.0-36.0); Mean Corpuscular Hemoglobin 24.7 pg (28.0-34.0); Mean Corpuscular Volume 86.7 fL (81-99); Mean Platelet Volume 10.1 fL (7.4-10.4); Monocytes # 1.5 10^3/uL (0.2-0.9); Monocytes % 11.5 %; Neutrophils # 7.9 10^3/uL (1.8-7.7); Neutrophils % 60.5 %; Nucleated Red Blood Cells % 0 %; Platelet Count 447 10^3/cmm (130-400); Red Blood Count 3.77 10^6/uL (4.1-5.3); Red Cell Distribution Width 21.9 % (12.1-15.1)
[2019-07-02 06:07] LABS: Alanine Aminotransferase 17 U/L (0-33); Alkaline Phosphatase 202 IU/L (35-105); Aspartate Amino Transferase 44 U/L (0-32); Blood Urea Nitrogen 8 mg/dL (6-20); Calcium 8.7 mg/dL (8.5-10.5); Carbon Dioxide 14 mmol/L (22-29); Chloride 117 mmol/L (98-107); Globulin 4.4 g/dL (1.3-4.6); Glomerular Filtration Rate 85.9 mL/min (90-130); Glucose 97 mg/dL (65-115); Osmolality Calculated 292 mOsm/kg (285-295); Sodium 143 mmol/L (136-145); Total Bilirubin 0.2 mg/dL (0.15-1.2); Total Protein 6.4 g/dL (6.6-8.7)
[2019-07-02 06:37] LABS: Glucose Point of Care 103 mg/dL (70-110)
[2019-07-02 07:49] VITALS: BP 152/74; PULSE 76; RESP 17; TEMP 37.1; O2SAT 96
[2019-07-02] MEDS: levothyroxine 150 mcg Tablet 75 MCG PO (09:23)
[2019-07-02] MEDS: aspirin 81 mg EC Tablet PO (09:24)
[2019-07-02] MEDS: ARIPiprazole 10 mg Tablet 5 MG PO (09:24)
[2019-07-02] MEDS: metoprolol succinate ER (24 HR) 25 mg Tablet PO (09:24)
[2019-07-02] MEDS: buPROPion SR (12 HR) 100 mg Tablet PO (09:24)
[2019-07-02] MEDS: sulfamethoxazole-trimeth DS 160-800 mg Tablet 1 TAB PO ×2 (09:24→17:32)
[2019-07-02] MEDS: clopidogrel 75 mg Tablet PO (09:25)
[2019-07-02] MEDS: ascorbic acid 500 mg Tablet 1000 MG PO ×2 (09:25→17:32)
[2019-07-02] MEDS: pregabalin 100 mg Capsule 200 MG PO ×2 (09:25→17:33)
[2019-07-02] MEDS: tamsulosin 0.4 mg Capsule PO ×2 (09:25→17:32)
[2019-07-02] MEDS: clotrimazole 1% cream 30 gm 1 APPLIC TOPICAL ×2 (09:29→17:33)
--- NOTE | 2019-07-02 10:47 | PM.PN ---
Subjective Subjective: Interval history: This morning patient has no complaints, is still on fluids, Morales catheter in place, states that she has been in bed all day yesterday, but overall is doing well, is awaiting antifungal approval by intermediate Medications: Reviewed: Yes Vitals/I&O/Wt Last Vital Signs Temp 98.8 F 07/02/19 07:49 Pulse 76 07/02/19 07:49 Resp 17 07/02/19 07:49 BP 152/74 07/02/19 07:49 Pulse Ox 96 07/02/19 07:49 07/01/19 07/02/19 07/02/19 22:59 06:59 14:59 Intake Total 360 / 1761.25 871.25 / 2632.50 360 / 360 Output Total 350 / 1501 1000 / 2501 400 / 400 Balance 10 / 260.25 -128.75 / 131.50 -40 / -40 Weight last 48 hrs Weight 64.183 kg Weight 68.237 kg Physical Exam Const: COMMON NORMALS: no apparent distress and oriented x3 HENMT: COMMON NORMALS: normocephalic HEAD & SCALP: normocephalic Neck/C-Spine: COMMON NORMALS: no JVD Resp: COMMON NORMALS: normal respiratory effort, no retractions, no use of accessory muscles and clear to auscultation bilaterally AUSCULTATION: clear to auscultation bilaterally Cardio: COMMON NORMALS: no JVD, regular rate, regular rhythm, S1 normal heart sound and S2 normal heart sound RATE: regular rate RHYTHM: regular rhythm HEART SOUNDS: S1 normal and S2 normal GI: COMMON NORMALS: normal to inspection, nondistended, normoactive bowel sounds, soft to palpation, non-tender, no hepatosplenomegaly, no masses and no bruits PALPATION: Yes soft and Yes no hepatosplenomegaly Neuro: COMMON NORMALS: oriented x3 Psych: COMMON NORMALS: mental status grossly normal Urinary Catheter Management^: Morales Latex: Cath Placed During This Visit: yes Reason for Continuing Indwelling Catheter: Assist Healing of Perineal & Sacral Wounds- Incontinent Patients Urinary Catheter Date of Insertion: 06/28/19 Urinary Catheter Time of Insertion: 19:10 Morales: Cath Placed During This Visit: yes Reason for Continuing Indwelling Catheter: Acute Urinary Retention or Obstruction Urinary Catheter Date of Insertion: 04/03/20 Data : 07/02/19 04:56 07/02/19 04:56 Micro: Microbiology 06/29/19 02:20 Urine Culture - Final Urine,Clean Catch A&P Assessment and plan (1) Candidal UTI (urinary tract infection): Status: Acute (2) Hydronephrosis of right kidney: Status: Acute (3) Urinary tract infection: Status: Acute (4) Bilateral hydronephrosis: Status: Acute (5) Chronic cystitis: Status: Acute Additional A&P Information # UTI with recurrent hydronepehrosis/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 s/p placement of R ureteric stent and replacement of L stent - continue zosyn and caspofungin empirically Urine culture negative WBC downtrending to 13.6 Overall, Patient is colonized with C.Glabrata and recurrent obstruction appaers to be the trigger for recurrent episodes of UTI. Most pertinent factor in reducing recurrent episodes of UTI would be to maintain patency of urinary tract to ensure adequate flow. She may need frequent urological procedures such as indwelling stents exchanged at regular intervals vs PCN. Her stents as such may remain at high risk of recurrent obstrction as well owing to thick debris from inflammation as noted on previous procedures. While a trial of director long term care suppression with antifungals could potentially have been an option, this is limited by the fact that her isolate is C.glabrata which is only susceptible to iv echinocandins. Fluconazole, as expected is resistant with high RENO >128. There are no available breakpoints for voriconazole or posaconazole to favor their use in this situation, plus these drugs carry a risk of potential complications such as qtc prolongation and significant drug-drug interactions. Best course for now will be ensure adequate drainage and treat with short courses of abx/antifungals as these happen. For now, plan to use caspofungin to complete course of 7 days. NH trying to arrange for this to continue upon discharge ucx negative, will coupatience madrigal # h/o Ischemic cardiomyopathy: Last echo done in May 2018 shows an EF of 35 to 40% with grade 3 diastolic dysfunction with moderate hypokinesis of septum, anteroseptal and apical segments. Continue with Lopressor 25 twice daily. # Type 2 diabetes: Sliding scale at moderate dose # Continue with chronic medications like Remeron pancrelipase, levothyroxine, Flomax, pregabalin at home dose. Discontinue fluids today, remove Morales catheter, up out of bed with Yuliya lift Attestations Medical Necessity Statement*: She requires continued hospitalization for UTI requiring antifungal therapy, awaiting intermediate approval of antifungals Coding Level of Care Code Acute Sanitary Inspector for [facility] Fwd Diagnoses Candidal UTI (urinary tract infection) B37.49 Hydronephrosis of right kidney N13.30 Urinary tract infection N39.0 Bilateral hydronephrosis N13.30 Chronic cystitis N30.20
[2019-07-02 12:00] VITALS: BP 125/66; PULSE 76; RESP 17; TEMP 36.9; O2SAT 95
[2019-07-02 12:17] LABS: Glucose Point of Care 156 mg/dL (70-110)
[2019-07-02 16:00] VITALS: BP 151/71; PULSE 72; RESP 17; TEMP 36.8; O2SAT 95
[2019-07-02 16:26] LABS: Glucose Point of Care 131 mg/dL (70-110)
[2019-07-02 19:56] VITALS: BP 152/74; PULSE 71; RESP 18; TEMP 37.1; O2SAT 94
[2019-07-02] MEDS: mirtazapine 15 mg Tablet PO (20:15)
[2019-07-02] MEDS: sertraline 100 mg Tablet PO (20:15)
[2019-07-02] MEDS: atorvastatin 40 mg Tablet 20 MG PO (20:15)
[2019-07-02 20:45] LABS: Glucose Point of Care 213 mg/dL (70-110)
[2019-07-03] VITALS: BP 113/65; PULSE 65; RESP 18; TEMP 36.6; O2SAT 95
[2019-07-03 04:00] VITALS: BP 135/70; PULSE 73; RESP 18; TEMP 37.1; O2SAT 94
[2019-07-03 04:53] LABS: Basophils # 0.1 10^3/uL (0.0-0.1); Basophils % 0.6 %; Eosinophils # 0.8 10^3/uL (0.0-0.8); Eosinophils % 4.5 %; Hematocrit 31.2 % (37.0-47.0); Hemoglobin 8.9 g/dL (11.5-15.3); Lymphocytes # 2.1 10^3/uL (0.8-4.8); Mean Corpuscular HGB Conc 28.5 g/dL (30.0-36.0); Mean Corpuscular Hemoglobin 23.4 pg (28.0-34.0); Mean Corpuscular Volume 82.1 fL (81-99); Mean Platelet Volume 10.3 fL (7.4-10.4); Monocytes # 1.5 10^3/uL (0.2-0.9); Monocytes % 8.5 %; Neutrophils # 12.8 10^3/uL (1.8-7.7); Neutrophils % 72.8 %; Nucleated Red Blood Cells % 0 %; Platelet Count 448 10^3/cmm (130-400); Red Cell Distribution Width 21.7 % (12.1-15.1); White Blood Count 17.5 10^3/uL (4.0-10.0)
[2019-07-03 05:01] LABS: Alanine Aminotransferase 26 U/L (0-33); Albumin Level 2.5 g/dL (3.5-5.2); Alkaline Phosphatase 196 IU/L (35-105); Anion Gap 16.8 (5-19); Aspartate Amino Transferase 45 U/L (0-32); Blood Urea Nitrogen 11 mg/dL (6-20); Calcium 8.6 mg/dL (8.5-10.5); Carbon Dioxide 17 mmol/L (22-29); Chloride 114 mmol/L (98-107); Creatinine Clr Calc Pharmacy 48.7654; Globulin 3.7 g/dL (1.3-4.6); Glomerular Filtration Rate 42.1 mL/min (90-130); Glucose 112 mg/dL (65-115); Osmolality Calculated 295 mOsm/kg (285-295); Potassium 3.8 mmol/L (3.5-5.1); Sodium 144 mmol/L (136-145); Total Bilirubin 0.2 mg/dL (0.15-1.2); Total Protein 6.2 g/dL (6.6-8.7)
[2019-07-03] MEDS: pantoprazole DR 40 mg Tablet PO (05:16)
[2019-07-03 06:34] LABS: Glucose Point of Care 130 mg/dL (70-110)
[2019-07-03 08:00] VITALS: BP 137/57; PULSE 78; RESP 17; TEMP 37.2; O2SAT 93
[2019-07-03] MEDS: ARIPiprazole 10 mg Tablet 5 MG PO (09:40)
[2019-07-03] MEDS: levothyroxine 150 mcg Tablet 75 MCG PO (09:40)
[2019-07-03] MEDS: sulfamethoxazole-trimeth DS 160-800 mg Tablet 1 TAB PO (09:41)
[2019-07-03] MEDS: buPROPion SR (12 HR) 100 mg Tablet PO (09:41)
[2019-07-03] MEDS: sodium chloride 0.9% 1,000 ML 75 ML IV (09:41)
[2019-07-03] MEDS: tamsulosin 0.4 mg Capsule PO (09:42)
[2019-07-03] MEDS: aspirin 81 mg EC Tablet PO (09:42)
[2019-07-03] MEDS: ascorbic acid 500 mg Tablet 1000 MG PO (09:42)
[2019-07-03] MEDS: clopidogrel 75 mg Tablet PO (09:42)
[2019-07-03] MEDS: metoprolol succinate ER (24 HR) 25 mg Tablet PO (09:42)
[2019-07-03] MEDS: clotrimazole 1% cream 30 gm 1 APPLIC TOPICAL (09:43)
--- NOTE | 2019-07-03 10:31 | PM.PN ---
Subjective Subjective: Interval history: This this morning patient was examined, she has no complaints this morning, no fevers, no chills, no nausea, no vomiting, no chest pain, no shortness of breath, has chronic dysuria has chronic dysuria This morning patient's white blood cell count of 17,000, has remained afebrile, normotensive, has no shortness of breath complaints, no chest pain complaints, no shortness of breath complaints,is on caspofungin and Bactrim Medications: Reviewed: Yes Vitals/I&O/Wt Last Vital Signs Temp 99.0 F 07/03/19 08:00 Pulse 78 07/03/19 08:00 Resp 17 07/03/19 08:00 BP 137/57 07/03/19 08:00 Pulse Ox 93 07/03/19 08:00 07/02/19 07/03/19 07/03/19 22:59 06:59 14:59 Intake Total 60 / 660 240 / 240 Balance 60 / 260 240 / 240 Weight last 48 hrs Weight 65.487 kg Weight 64.183 kg Physical Exam Const: COMMON NORMALS: no apparent distress and oriented x3 HENMT: COMMON NORMALS: normocephalic HEAD & SCALP: normocephalic Neck/C-Spine: COMMON NORMALS: no JVD Resp: COMMON NORMALS: normal respiratory effort, no retractions, no use of accessory muscles and clear to auscultation bilaterally AUSCULTATION: clear to auscultation bilaterally Cardio: COMMON NORMALS: no JVD, regular rate, regular rhythm, S1 normal heart sound and S2 normal heart sound RATE: regular rate RHYTHM: regular rhythm HEART SOUNDS: S1 normal and S2 normal GI: COMMON NORMALS: normal to inspection, nondistended, normoactive bowel sounds, soft to palpation, non-tender, no hepatosplenomegaly, no masses and no bruits PALPATION: Yes soft and Yes no hepatosplenomegaly Neuro: COMMON NORMALS: oriented x3 Psych: COMMON NORMALS: mental status grossly normal Urinary Catheter Management^: Morales Latex: Cath Placed During This Visit: yes Reason for Continuing Indwelling Catheter: Assist Healing of Perineal & Sacral Wounds- Incontinent Patients Urinary Catheter Date of Insertion: 06/28/19 Urinary Catheter Time of Insertion: 19:10 Morales: Cath Placed During This Visit: yes Reason for Continuing Indwelling Catheter: Acute Urinary Retention or Obstruction Urinary Catheter Date of Insertion: 06/28/19 Data : 07/03/19 04:18 07/03/19 04:18 Micro: Microbiology 07/02/19 16:11 C.difficile Toxin B Gene (PCR) - Final Stool A&P Assessment and plan (1) Candidal UTI (urinary tract infection): Status: Acute (2) Hydronephrosis of right kidney: Status: Acute (3) Urinary tract infection: Status: Acute (4) Bilateral hydronephrosis: Status: Acute (5) Chronic cystitis: Status: Acute Additional A&P Information # UTI with recurrent hydronepehrosis/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 s/p placement of R ureteric stent and replacement of L stent - continue caspofungin empirically and Bactrim, on discharge will discharge on chronic Bactrim therapy for chronic cystitis, I spoke to Dr. Poon, he will follow-up in 3 months, okay with previous plan Urine culture negative WBC has increased to 17.5 Overall, Patient is colonized with C.Glabrata and recurrent obstruction appaers to be the trigger for recurrent episodes of UTI. Most pertinent factor in reducing recurrent episodes of UTI would be to maintain patency of urinary tract to ensure adequate flow. She may need frequent urological procedures such as indwelling stents exchanged at regular intervals vs PCN. Her stents as such may remain at high risk of recurrent obstrction as well owing to thick debris from inflammation as noted on previous procedures. While a trial of fdc suppression with antifungals could potentially have been an option, this is limited by the fact that her isolate is C.glabrata which is only susceptible to iv echinocandins. Fluconazole, as expected is resistant with high RENO >128. There are no available breakpoints for voriconazole or posaconazole to favor their use in this situation, plus these drugs carry a risk of potential complications such as qtc prolongation and significant drug-drug interactions. Best course for now will be ensure adequate drainage and treat with short courses of abx/antifungals as these happen. For now, plan to use caspofungin to complete course of 7 days. NH trying to arrange for this to continue upon discharge ucx negative, will coutinue bactrim # h/o Ischemic cardiomyopathy: Last echo done in May 2018 shows an EF of 35 to 40% with grade 3 diastolic dysfunction with moderate hypokinesis of septum, anteroseptal and apical segments. Continue with Lopressor 25 twice daily. # Type 2 diabetes: Sliding scale at moderate dose # Continue with chronic medications like Remeron pancrelipase, levothyroxine, Flomax, pregabalin at home dose. 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
[2019-07-03 10:43] LABS: Glucose Point of Care 260 mg/dL (70-110)
--- NOTE | 2019-07-03 11:25 | PC.SOCIAL ---
IMM Updated Page 2 of IMM updated and given to patient. Initialed, dated, and timed and placed back in chart.
[2019-07-03 12:00] VITALS: BP 153/72; PULSE 80; RESP 17; TEMP 36.8; O2SAT 96
--- NOTE | 2019-07-03 12:38 | P.DS_ITS ---
Discharge Providers Date of Admission: 06/28/19 19:27 Date of Discharge: July 03, 2019 Attending Provider at Admission: Pj Poon MD Attending Provider at Discharge: Ranulfo Walker MD Primary Care Provider: Monika Fowler MD, [facility] [place] Diagnoses at Discharge Discharge Diagnosis (1) Candidal UTI (urinary tract infection): Status: Acute (2) Hydronephrosis of right kidney: Status: Acute (3) Urinary tract infection: Status: Acute (4) Bilateral hydronephrosis: Status: Acute (5) Chronic cystitis: Status: Acute Reason for Visit Reason for Visit: Reason For Visit: hydrofreeisis,syscoptopy,florotopy,bilateral urite Hospital Course Discharge Summary: This is a 51-year-old female with a past medical history of recurrent urinary tract infections, intertrigo, vulvovaginal candidiasis, candiduria with Aida glabrata resistant to Diflucan, sensitive to caspofungin, recently admitted between June 07 to June 16 seen and assessed by urology, with placement of bilateral stents by Dr. Poon, discharged on caspofungin to care home, patient was seen by Dr. Poon on June 23 as outpatient, bilateral stents were removed, and within 24 hours she developed fevers at the care home. Patient was admitted to [facility], seen by Dr. Poon, she had a cystoscopy with removal of the left indwelling stent, and replacement of bilateral ureteral stents by Dr. Poon. She is placed on broad-spectrum antibiotics Zosyn, caspofungin. Patient clinically improved, her urine cultures were unremarkable, blood cultures were unremarkable, her white blood cell count trended down, patient was discharged to the care home on 3 remaining days of caspofungin. She is also discharged on chronic cystitis therapy with Bactrim. I spoke to Dr. Poon on discharge, he agreed with previous plan, and to follow-up with him in clinic in 3 months, with plans on keeping in ureteral stents for a prolonged period of time with exchanges of indwelling stents in the near future, as she has a high risk of recurrent obstruction and subsequent UTIs in the future due to thick debris from inflammation. On discharge, was noted the patient's white blood cell count increased to 17.4, she remained afebrile, no cough, no abdominal pain, no diarrhea, had clinically improved, her Morales catheter was removed, she had adequate voiding trials. prison was advised to monitor urine output, monitor for fevers, monitor white blood cell count. Physical Exam Const: COMMON NORMALS: no apparent distress and oriented x3 HENMT: COMMON NORMALS: normocephalic HEAD & SCALP: normocephalic Neck/C-Spine: COMMON NORMALS: no JVD Resp: COMMON NORMALS: normal respiratory effort, no retractions, no use of accessory muscles and clear to auscultation bilaterally AUSCULTATION: clear to auscultation bilaterally Cardio: COMMON NORMALS: no JVD, regular rate, regular rhythm, S1 normal heart sound and S2 normal heart sound RATE: regular rate RHYTHM: regular rhythm HEART SOUNDS: S1 normal and S2 normal GI: COMMON NORMALS: normal to inspection, nondistended, normoactive bowel sounds, soft to palpation, non-tender, no hepatosplenomegaly, no masses and no bruits PALPATION: Yes soft and Yes no hepatosplenomegaly Neuro: COMMON NORMALS: oriented x3 Psych: COMMON NORMALS: mental status grossly normal Urinary Catheter Management^: Morales Latex: Cath Placed During This Visit: yes Reason for Continuing Indwelling Catheter: Assist Healing of Perineal & Sacral Wounds- Incontinent Patients Urinary Catheter Date of Insertion: 06/28/19 Urinary Catheter Time of Insertion: 19:10 Morales: Cath Placed During This Visit: yes Reason for Continuing Indwelling Catheter: Acute Urinary Retention or Obstruction Urinary Catheter Date of Insertion: 06/28/19 Discharge Data Data Completed and Pending: Pending at discharge Category Date Time Status Blood Culture Sta t Lab 06/28/19 21:03 Results Complete Blood Co unt w/Auto AM LABS Lab 07/04/19 04:00 Ordered Comprehensive Met abolic Panel AM LA BS Lab 07/04/19 04:00 Ordered Labs from last 24 hours 07/03/19 07/03/19 07/03/19 10:39 06:26 04:18 WBC RBC Hgb Hct MCV MCH MCHC RDW Plt Count MPV Neut % (Auto) Lymph % (Auto) Gilchrist % (Auto) Eos % (Auto) Baso % (Auto) Neut # (Auto) Lymph # (Auto) Gilchrist # (Auto) Eos # (Auto) Baso # (Auto) Nucleated RBC % (a uto) Nucleated RBCs # Sodium 144 Potassium 3.8 Chloride 114 H Carbon Dioxide 17 L Anion Gap 16.8 BUN 11 Creatinine 1.3 H GFR Calculation 42.1 L Glucose 112 POC Glucose 260 130 Calculated Osmolal ity 295 Calcium 8.6 Total Bilirubin 0.2 AST 45 H ALT 26 Alkaline Phosphata se 196 H Total Protein 6.2 L Albumin 2.5 L Globulin 3.7 07/03/19 07/02/19 07/02/19 04:18 20:40 16:20 WBC 17.5 H RBC 3.80 L Hgb 8.9 L Hct 31.2 L MCV 82.1 D MCH 23.4 L MCHC 28.5 L RDW 21.7 H Plt Count 448 H MPV 10.3 Neut % (Auto) 72.8 Lymph % (Auto) 12.0 Gilchrist % (Auto) 8.5 Eos % (Auto) 4.5 Baso % (Auto) 0.6 Neut # (Auto) 12.8 H Lymph # (Auto) 2.1 Gilchrist # (Auto) 1.5 H Eos # (Auto) 0.8 Baso # (Auto) 0.1 Nucleated RBC % (a uto) 0 Nucleated RBCs # 0.0 Sodium Potassium Chloride Carbon Dioxide Anion Gap BUN Creatinine GFR Calculation Glucose POC Glucose 213 131 Calculated Osmolal ity Calcium Total Bilirubin AST ALT Alkaline Phosphata se Total Protein Albumin Globulin Vitals: Last Vital Signs Temp 99.0 F 07/03/19 08:00 Pulse 78 07/03/19 08:00 Resp 17 07/03/19 08:00 BP 137/57 07/03/19 08:00 Pulse Ox 93 07/03/19 08:00 Discharge Plan Discharge Patient Disposition: Home, Self-Care Condition: Stable Prescriptions: New caspofungin 50 mg recon soln 50 mg IVP DAILY 3 Days Qty: 3 RF: 0 sulfamethoxazole-trimethoprim [Bactrim] 400-80 mg tablet 0.5 tab PO DAILY 90 Days Qty: 90 RF: 0 Continued simvastatin 40 mg tablet 40 mg PO BEDTIME RF: 0 ascorbic acid (vitamin C) 1,000 mg tablet 1,000 mg PO BID RF: 0 metoprolol succinate 25 mg tablet extended release 24 hr 25 mg PO DAILY RF: 0 pregabalin 200 mg capsule 200 mg PO BID RF: 0 methenamine hippurate 1 gram tablet 1 gm PO BID RF: 0 tamsulosin 0.4 mg capsule 0.4 mg PO BID RF: 0 mirtazapine 7.5 mg tablet 15 mg PO BEDTIME RF: 0 aspirin [Aspir-81] 81 mg tablet,delayed release (DR/EC) 81 mg PO DAILY RF: 0 Creon 3,000-9,500- 15,000 unit capsule,delayed release(DR/EC) 1 cap PO TID RF: 0 aripiprazole [Abilify] 5 mg tablet 5 mg PO DAILY RF: 0 sertraline [Zoloft] 100 mg tablet 100 mg PO Q24H RF: 0 Novolog Flexpen U-100 Insulin 100 unit/mL (3 mL) insulin pen See Rx Instructions .ROUTE .COMPLEX RF: 0 levothyroxine 75 mcg capsule 75 mcg PO DAILY RF: 0 clopidogrel 75 mg tablet 75 mg PO DAILY RF: 0 hydrocodone-acetaminophen [[place]] 5-325 mg tablet 1 tab PO Q6H PRN (Reason: Pain) RF: 0 bupropion HCl [Wellbutrin SR] 100 mg tablet sustained-release 12 hr 100 mg PO DAILY RF: 0 pantoprazole 40 mg tablet,delayed release (DR/EC) 40 mg PO QAM RF: 0 clotrimazole 1 % cream 1 applic TOPICAL BID RF: 0 acetaminophen [Tylenol] 325 mg Tablet 650 mg PO PRN RF: 0 miconazole nitrate 2 % Cream See Rx Instructions .ROUTE .COMPLEX RF: 0 Changed isosorbide mononitrate 30 mg tablet extended release 24 hr 15 mg PO DAILY 30 Days Qty: 30 RF: 0 Lantus U-100 Insulin 100 unit/mL solution 5 unit SUBCUT BEDTIME 30 Days Qty: 10 RF: 0 Discharge Orders: Discharge Order (Routine); Ordered 07/03/19 Ordered By: Ranulfo Walker Other Ambulatory Orders: Complete Blood Count w/Auto (DAILY) Timeframe: 20190704 Location: Determined by Patient Ordered By: Ranulfo Walker Complete Blood Count w/Auto (DAILY) Timeframe: 20190705 Location: Determined by Patient Ordered By: Ranulfo Walker Complete Blood Count w/Auto (DAILY) Timeframe: 20190706 Location: Determined by Patient Ordered By: Ranulfo Walker Comprehensive Metabolic Panel (DAILY) Timeframe: 20190704 Facility: [facility] - Location: Lab - Main Lab Ordered By: Ranulfo Walker Comprehensive Metabolic Panel (DAILY) Timeframe: 20190705 Facility: [facility] - Location: Lab - Main Lab Ordered By: Ranulfo Walker Comprehensive Metabolic Panel (DAILY) Timeframe: 20190706 Facility: [facility] - Location: Lab - Main Lab Ordered By: Ranulfo Walker Referrals: Pj Poon MD [Physician] - 3 months Discharge Diet: Diabetic Discharge Activity: Resume usual activity Activity Restrictions/Additional Instructions: -Caspofungin 50 mg IV every 24 hours, starting tomorrow -Please give 500 cc normal saline bolus before each IV antibiotic transfusion -Please monitor daily CMP's for creatinine and liver function -Please monitor white blood cell count daily -If fevers, chills, worsening mental status please come back to the emergency room -Patient needs to follow-up with urology in 3 months -Patient has been put on chronic Bactrim therapy for chronic cystitis -Please monitor blood sugars 3 times daily, Lantus dose has been decreased to 5 units at bedtime -Is on a NovoLog sliding scale Discharge Attestations Time Spent in Discharge Care*: less than 30 min Quality Metrics Clinical Quality Measures During this hospital stay, did patient experience: None Coding Level of Care Code Acute Real Estate Accountant for g Fwd Diagnoses Candidal UTI (urinary tract infection) B37.49 Hydronephrosis of right kidney N13.30 Urinary tract infection N39.0 Bilateral hydronephrosis N13.30 Chronic cystitis N30.20
[2019-07-03 13:50] VITALS: PULSE 75; O2SAT 94
== END 2019-07-03 15:55 | disposition home or self-care (01) | DRG 690 ==
LOC: MEDSURG 06-29 07:11
PROVIDERS: Student in an Organized Health Care Education/Training Program; Admitting Provider Urology; Family Provider Family Medicine; PCP Family Medicine; Visit Provider Family Medicine
PROC: 0TJB8ZZ Inspection of Bladder, Via Natural or Artificial Opening Endoscopic (ICD-10-PCS; CPT 52000; principal; 2019-06-28 18:10)
PROC: 0TP98DZ Removal of Intraluminal Device from Ureter, Via Natural or Artificial Opening Endoscopic (ICD-10-PCS; CPT 50605; 2019-06-28 18:10)
DX: N30.20 Other chronic cystitis without hematuria (principal); B37.49 Other urogenital candidiasis; N13.30 Unspecified hydronephrosis; Z79.82 Long term (current) use of aspirin; E11.9 Type 2 diabetes mellitus without complications; I25.5 Ischemic cardiomyopathy
CPT/HCPCS: 12345; 36415; 36416; 51702; 76000; 80053; 81001; 82962; 83605; 84484; 85025; 85610; 87040; 87086; 87493; 93005; 94760; 96372; 97161; C2625; J0330; J0637; J1650; J1815; J2001; J2543; J2704; J3010; J7030; J7050

== ENCOUNTER 2019-07-15 11:59 | Emergency (ER) | payer MEDICARE, MEDICAID, SELFPAY ==
[2019-07-15 12:04] VITALS: BP 109/50; PULSE 73; RESP 18; TEMP 36.8; O2SAT 97; BMI 32.4
--- NOTE | 2019-07-15 12:12 | US_ITS ---
WS: [id number] ULTRASOUND RENAL TECHNIQUE: Ultrasound examination of both kidneys. CLINICAL INFORMATION: hematuria, history of hydronephrosis, renal stents COMPARISON: June 24 2019 FINDINGS: Bilateral double-J ureteral stents in place. Mild residual hydronephrosis. Chronic appearin g bladder wall thickening is unchanged. RIGHT: Right kidney is normal in size and appearance. Echogenicity: Normal. Hydronephrosis: Mild Perinephric fluid: None. Right kidney measures: 13.4 cm x 5.1 cm x 6.1 cm. LEFT: Left kidney is normal in size and appearance. Echogenicity: Normal. Hydronephrosis: Mild Perinephric fluid: None. Left kidney measures: 11.5 cm x 6.7 cm x 5.9 cm. Normal visualized aorta. Diffuse bladder wall thickening with internal debris may be due to hematoma. Echogenic suspected hematoma measures 4 x 3 cm US/US renal BI* [id number] IMPRESSION: 1. Mild residual hydronephrosis of bilateral double-J ureteral stents. 2. Diffuse bladder wall thickening with internal debris may be due to hematoma . Suspected hematoma measures 4 x 3 cm. This could be further evaluated with CT or cystoscopy
--- NOTE | 2019-07-15 12:23 | W.ED.FEMALGU ---
HPI - Female Genitourinary General: Chief complaint: Urogenital-Female Stated complaint: BLOOD IN URINE Time Seen by Provider: 07/15/19 12:10 History of Present Illness: HPI Narrative: Patient was brought in today from detention by EMS for blood in her depends. Patient has a history of UTI and renal stents. Patient denies any nausea vomiting or abdominal pain. Patient appears chronically ill. Patient appears in no pain. Patient has severe diabetes and bilateral lower extremity amputations. Review of Systems General: Reports: 10 or more systems reviewed and unremarkable except in HPI and below : Reports: blood in urine [facility] ED PFSH: Social History Smoking and tobacco status: current every day smoker cigarettes Packs smoked per day: 0.5 Alcohol intake: never Housing: [facility] Marital status: / Current occupational status: disabled History of recent travel: No Current gender identity: Female Physical Exam Const: COMMON NORMALS: no apparent distress and oriented x3 GENERAL APPEARANCE: cooperative HENMT: COMMON NORMALS: normocephalic, TM's normal bilaterally and external nose normal HEAD & SCALP: normal to inspection and normocephalic NOSE: external nose normal TYMPANIC MEMBRANE: TM's normal bilaterally MOUTH: oral and palatal mucosa normal THROAT: posterior oropharynx normal Eye: GENERAL EYE: normal appearance of both eyes Neck/C-Spine: COMMON NORMALS: full ROM Lymph: LYMPHATIC: no lymphadenopathy noted Chest: COMMONS NORMALS: inspection of chest normal Resp: COMMON NORMALS: normal respiratory effort EFFORT & INSPECTION: Yes able to speak in complete sentences Cardio: COMMON NORMALS: regular rate and regular rhythm RATE: regular rate RHYTHM: regular rhythm GI: COMMON NORMALS: non-tender : COMMON NORMALS: Yes no CVA tenderness BLADDER/KIDNEY EXAM: Yes no CVA tenderness Back/Pelvis: COMMON NORMALS: no CVA tenderness and thoracic and lumbar spine normal to inspection Extremity: COMMON NORMALS: normal to inspection Neuro: COMMON NORMALS: oriented x3 and moves all extremities Psych: COMMON NORMALS: mental status grossly normal and cooperative Skin: COMMON NORMALS: no rashes or lesions noted NARRATIVE SKIN EXAM: skin color pale GENERAL SKIN EXAM: no rashes or lesions noted Course ED course: 1330, discussed abnormal ultrasound of the kidneys and bladder with patient. No significant hydro-nephrosis was noted. It was noted the patient had a blood clot in the bladder. Contacted Dr. Poon regarding this since he has a history with patient because of renal stents. He recommended irrigation of the blood clot until clear from the bladder. [id number], contacted Dr. Poon back for recommendations for further care after discharge. He recommended patient maintain Morales catheter and continue on Bactrim antibiotic. Patient also needs to make sure she is drinking plenty of fluids. Discussed with with patient who states understanding and agreed to plan Vital Signs: Vital signs: Vital Signs Temperature 98.2 F 07/15/19 12:04 Pulse Rate 73 07/15/19 12:04 Respiratory Rate 18 07/15/19 12:04 Blood Pressure 109/50 07/15/19 12:04 Pulse Oximetry 97 07/15/19 12:04 MDM - Female MDM Narrative: Medical decision making narrative: Patient was sent in from the detention for concerns of hematuria. On exam patient's abdomen was soft nontender. Patient had some blood clots in her depends. Respirations were even lungs were clear to auscultation vital signs were normal. Differential diagnosis includes interstitial cystitis, hematuria, tumor, renal calculi, obstructed renal stents. Laboratory values noted no significant change from previous labs except for some elevation in her potassium and BUN. Urine shows gross amount of blood. Ultrasound noted no significant hydronephrosis. Reviewed with Dr. Poon who recommended catheterization and irrigation until clear of blood clots in the bladder. Patient was given 1 L of IV fluids for mild dehydration. Patient will continue with Bactrim as directed by Dr. Poon. Reviewed exam and recommendations with patient who reported understanding of care plan. Patient was encouraged to drink plenty of fluids to prevent dehydration and worsening of symptoms. Lab Data: Labs: Lab Results 07/15/19 07/15/19 Range/Units 14:25 14:25 WBC 14.9 H (4.0-10.0) 10^3/ uL RBC 3.90 L (4.1-5.3) 10^6/u L Hgb 9.3 L (11.5-15.3) g/dL Hct 34.3 L (37.0-47.0) % MCV 87.9 (81-99) fL MCH 23.8 L (28.0-34.0) pg MCHC 27.1 L (30.0-36.0) g/dL RDW 24.8 H (12.1-15.1) % Plt Count 428 H (130-400) 10^3/c mm MPV 10.5 H (7.4-10.4) fL Neut % (Auto) 65.9 % Lymph % (Auto) 12.8 % Barbour % (Auto) 13.6 % Eos % (Auto) 5.8 % Baso % (Auto) 1.3 % Neut # (Auto) 9.8 H (1.8-7.7) 10^3/u L Lymph # (Auto) 1.9 (0.8-4.8) 10^3/u L Barbour # (Auto) 2.0 H (0.2-0.9) 10^3/u L Eos # (Auto) 0.9 H (0.0-0.8) 10^3/u L Baso # (Auto) 0.2 H (0.0-0.1) 10^3/u L Nucleated RBC % (a uto) 0 % Nucleated RBCs # 0.0 /100WBC Sodium 136 (136-145) mmol/L Potassium 5.5 H (3.5-5.1) mmol/L Chloride 110 H (98-107) mmol/L Carbon Dioxide 15 L (22-29) mmol/L Anion Gap 16.5 (5-19) BUN 39 H (6-20) mg/dL Creatinine 1.1 H (0.5-0.9) mg/dL GFR Calculation 51.0 L (90-130) mL/min Glucose 317 H (65-115) mg/dL Calculated Osmolal ity 292 (285-295) mOsm/k g Calcium 8.5 (8.5-10.5) mg/dL Total Bilirubin 0.2 (0.15-1.2) mg/dL AST 17 (0-32) U/L ALT 20 (0-33) U/L Alkaline Phosphata se 213 H (35-105) IU/L Total Protein 6.4 L (6.6-8.7) g/dL Albumin 2.6 L (3.5-5.2) g/dL Globulin 3.8 (1.3-4.6) g/dL Discharge Plan Discharge Patient Disposition: SNF w Plan Readm Clinical Impression: Chronic cystitis, Dehydration Hematuria Qualifiers: Hematuria type: gross Qualified Code(s): R31.0 - Gross hematuria Condition: Stable Prescriptions: New Bactrim DS 800-160 mg tablet 1 tab PO Q12H 14 Days Qty: 28 RF: 0 No Action simvastatin 40 mg tablet 40 mg PO BEDTIME RF: 0 ascorbic acid (vitamin C) 1,000 mg tablet 1,000 mg PO BID RF: 0 metoprolol succinate 25 mg tablet extended release 24 hr 25 mg PO DAILY RF: 0 pregabalin 200 mg capsule 200 mg PO BID RF: 0 methenamine hippurate 1 gram tablet 1 gm PO BID RF: 0 tamsulosin 0.4 mg capsule 0.4 mg PO BID RF: 0 mirtazapine 7.5 mg tablet 15 mg PO BEDTIME RF: 0 aspirin [Aspir-81] 81 mg tablet,delayed release (DR/EC) 81 mg PO DAILY RF: 0 Creon 3,000-9,500- 15,000 unit capsule,delayed release(DR/EC) 1 cap PO TID RF: 0 aripiprazole [Abilify] 5 mg tablet 5 mg PO DAILY RF: 0 sertraline [Zoloft] 100 mg tablet 100 mg PO DAILY RF: 0 levothyroxine 75 mcg capsule 75 mcg PO DAILY RF: 0 clopidogrel 75 mg tablet 75 mg PO DAILY RF: 0 hydrocodone-acetaminophen [[place]] 5-325 mg tablet 1 tab PO Q6H PRN (Reason: Pain) RF: 0 bupropion HCl [Wellbutrin SR] 100 mg tablet sustained-release 12 hr 100 mg PO DAILY RF: 0 pantoprazole 40 mg tablet,delayed release (DR/EC) 40 mg PO DAILY RF: 0 Lantus U-100 Insulin 100 unit/mL solution 5 unit SUBCUT BEDTIME 30 Days Qty: 10 RF: 0 isosorbide mononitrate 30 mg tablet extended release 24 hr 15 mg PO DAILY 30 Days Qty: 30 RF: 0 sulfamethoxazole-trimethoprim [Bactrim] 400-80 mg tablet 0.5 tab PO DAILY 90 Days Qty: 90 RF: 0 acetaminophen [Tylenol] 325 mg Tablet 650 mg PO PRN PRN (Reason: Pain) RF: 0 miconazole nitrate 2 % Cream See Rx Instructions .ROUTE .COMPLEX PRN (Reason: SKIN) RF: 0 Miralax 17 gram Powder In Packet 17 g PO DAILY PRN (Reason: Constipation) RF: 0 Senna-S 8.6-50 mg Tablet 1 tab-cap PO BID PRN (Reason: Constipation) RF: 0 bisacodyl 10 mg Suppository 10 mg DC DAILY PRN (Reason: Constipation) RF: 0 Enema 19-7 gram/118 mL Enema 118 ml DC DAILY PRN (Reason: Constipation) RF: 0 Novolog Flexpen U-100 Insulin 100 unit/mL (3 mL) Insulin Pen See Rx Instructions .ROUTE .COMPLEX RF: 0 Referrals: Monika Fowler MD, [facility] [place] [Primary Care Provider] - Discharge Diet: Usual diet Discharge Activity: Increase activity as tolerated Patient Instructions: Acute Hematuria (ED) Activity Restrictions/Additional Instructions: Maintain Morales catheter. Drink plenty of water and fluids. Continue routine medications. Take Bactrim 1 tablet twice a day for antibiotic. Follow-up with Dr. Poon's office. Return to the ER for high fever or worsening symptoms. Coding Level of Care Code ED Oracle Software Engineer for Deepakg Fwd Exam Comprehensive
[2019-07-15 14:31] LABS: Basophils # 0.2 10^3/uL (0.0-0.1); Basophils % 1.3 %; Eosinophils # 0.9 10^3/uL (0.0-0.8); Eosinophils % 5.8 %; Hematocrit 34.3 % (37.0-47.0); Hemoglobin 9.3 g/dL (11.5-15.3); Lymphocytes # 1.9 10^3/uL (0.8-4.8); Lymphocytes % 12.8 %; Mean Corpuscular HGB Conc 27.1 g/dL (30.0-36.0); Mean Corpuscular Hemoglobin 23.8 pg (28.0-34.0); Mean Corpuscular Volume 87.9 fL (81-99); Mean Platelet Volume 10.5 fL (7.4-10.4); Monocytes % 13.6 %; Neutrophils # 9.8 10^3/uL (1.8-7.7); Neutrophils % 65.9 %; Nucleated Red Blood Cells % 0 %; Platelet Count 428 10^3/cmm (130-400); Red Cell Distribution Width 24.8 % (12.1-15.1); White Blood Count 14.9 10^3/uL (4.0-10.0)
[2019-07-15 14:46] LABS: Alanine Aminotransferase 20 U/L (0-33); Albumin Level 2.6 g/dL (3.5-5.2); Alkaline Phosphatase 213 IU/L (35-105); Anion Gap 16.5 (5-19); Aspartate Amino Transferase 17 U/L (0-32); Blood Urea Nitrogen 39 mg/dL (6-20); Calcium 8.5 mg/dL (8.5-10.5); Carbon Dioxide 15 mmol/L (22-29); Chloride 110 mmol/L (98-107); Globulin 3.8 g/dL (1.3-4.6); Glucose 317 mg/dL (65-115); Osmolality Calculated 292 mOsm/kg (285-295); Potassium 5.5 mmol/L (3.5-5.1); Sodium 136 mmol/L (136-145); Total Bilirubin 0.2 mg/dL (0.15-1.2); Total Protein 6.4 g/dL (6.6-8.7)
[2019-07-15] MEDS: sodium chloride 0.9% 1,000 ML 999 ML IV (16:38)
[2019-07-15 17:16] LABS: Blood Urine 3+ (Negative); Glucose Urine UA 3+ (Normal); Ketones Urine Negative (Negative); Protein Urine 3+ (Negative); Specific Gravity, Urine 1.005 (1.005-1.030); Urine Appearance Turbid (CLEAR); Urine Color Red (Yellow); pH Urine 6.5 (5-7)
[2019-07-15 17:17] LABS: Add Urine Microscopic? YES; Bilirubin Urine Neg (NEGATIVE); Leukocyte Esterase Urine 2+ (Negative); Nitrate Urine Negative (Negative); RBC Urine >100 /hpf (0-2); Urobilinogen Urine Norm (Negative); WBC Urine >100 /hpf (0-5)
[2019-07-15 17:18] LABS: Add Urine Culture? Yes; Bacteria Urine 2+
[2019-07-15 18:38] VITALS: BP 133/68; PULSE 69; RESP 18; O2SAT 96
--- NOTE | 2019-07-15 19:09 | PC.NURSE ---
Patient awaiting ride to group home
[2019-07-15 20:33] VITALS: BP 133/86; PULSE 86; RESP 18; O2SAT 96
--- NOTE | 2019-07-16 13:44 | DCPLANNER ---
flight manager had message to schedule a follow up appointment for patient with Dr. Borja office. flight manager called the office of Dr. Poon, field nurse case manager spoke with Sapna, gave clinic patients information. flight manager was told that patients information would be printed and given to Whit for review. Clinic will call patient with appointment information, field nurse case manager will call for appointment information.
--- NOTE | 2019-07-23 09:29 | DCPLANNER ---
Patient has an appointment scheduled for June at 9:[address] Poon. Clinic will call patient with appointment information.
== END 2019-07-15 20:34 ==
PROVIDERS: Emergency Provider Nurse Practitioner Family; Family Provider Family Medicine; PCP Family Medicine
DX: N30.21 Other chronic cystitis with hematuria (principal); E86.0 Dehydration; Z79.82 Long term (current) use of aspirin; Z79.02 Long term (current) use of antithrombotics/antiplatelets; Z79.4 Long term (current) use of insulin; F17.210 Nicotine dependence, cigarettes, uncomplicated
CPT/HCPCS: 12345; 36415; 51702; 76770; 80053; 81001; 85025; 87040; 87077; 87086; 87186; 96360; 96361; 99281; 99283; J7030

== ENCOUNTER 2019-08-04 14:19 | Inpatient (IN) | payer MEDICARE, MEDICAID, SELFPAY ==
[2019-08-04] VITALS (91 sets, daily range): BP systolic 89–139; BP diastolic 43–75; PULSE 72–92; RESP 11–27; TEMP -12.7–37.5; O2SAT 88–99; BMI 31.4
--- NOTE | 2019-08-04 14:44 | XR_ITS ---
WS: [id number] PORTABLE CHEST HISTORY: sepsis COMPARISON: 06/08/2019 Lung volumes are decreased but no pneumonia. Right-sided PICC line is in good position. No pleural ef fusion or pneumothorax. Cardiac size: Normal. Mediastinum/Aorta: Normal mediastinum. No osseous abnormality seen. XR/XR chest 1V portable [id number] IMPRESSION: Unremarkable portable chest.
--- NOTE | 2019-08-04 14:49 | ED_ITS ---
HPI - Fever General: Chief Complaint: Fever Stated Complaint: RIGHT FLANK PAIN; FEVER Time Seen by Provider: 08/04/19 14:32 History of Present Illness: HPI Narrative: Patient recently seen and treated for sepsis. She has a PICC line in place through which she is [facility]. Patient was returned to the emergency room today for complaints of fever of 103. Patient complains of severe generalized weakness and malaise. MD elicited complaint: fever, malaise and weakness Pertinent past history: diabetes and sepsis Onset (ago): day(s) Context: recent antibiotic use Exacerbating factors: nothing Relieving factors: nothing Associated symptoms: Reports abdominal pain, chills, confusion, myalgias and nausea Treatments prior to arrival fever: antibiotics Review of Systems General: Reports: 10 or more systems reviewed and unremarkable except in HPI and below Const: Reports: fever, chills, body aches, fatigue and malaise GI: Reports: abdominal pain and nausea Neuro: Reports: confusion PFSH ED PFSH: Medical History ASHD (arteriosclerotic heart disease) Bilateral hydronephrosis Bladder wall thickening Candidal UTI (urinary tract infection) Carotid stenosis, bilateral Chronic cystitis Chronic kidney disease (CKD) COPD (chronic obstructive pulmonary disease) Diabetes Essential hypertension Hydronephrosis of right kidney Hyperlipidemia PAD (peripheral artery disease) Surgical History S/P amputation of foot S/P below knee amputation S/P cataract extraction S/P tubal ligation Status post bilateral above knee amputation Status post tubal ligation Family History Family/Other Psychiatric illness CAD (coronary artery disease) Diabetes Cancer Stroke Social History Smoking and tobacco status: former smoker Alcohol intake: never Housing: Correction Marital status: / Current occupational status: disabled History of recent travel: No Current gender identity: Female Physical Exam HENMT: COMMON NORMALS: normocephalic and head/scalp atraumatic HEAD & SCALP: normocephalic and atraumatic Neck/C-Spine: COMMON NORMALS: full ROM, no lymphadenopathy, no meningeal signs and no JVD Resp: COMMON NORMALS: normal respiratory effort, no retractions, no use of accessory muscles and clear to auscultation bilaterally AUSCULTATION: clear to auscultation bilaterally Cardio: COMMON NORMALS: no JVD, regular rate and regular rhythm RATE: regular rate RHYTHM: regular rhythm GI: COMMON NORMALS: normal to inspection, nondistended, normoactive bowel sounds and soft to palpation PALPATION: Yes soft Neuro: MENINGEAL SIGNS: Yes no meningeal signs Skin: COMMON NORMALS: no rashes or lesions noted, no wounds, skin turgor normal, no jaundice, no petechiae and no mottling GENERAL SKIN EXAM: no rashes or lesions noted and turgor normal Course Vital Signs: Vital signs: Vital Signs Temperature 99.1 F 08/04/19 14:37 Pulse Rate 87 08/04/19 14:37 Respiratory Rate 14 08/04/19 14:37 Blood Pressure 104/45 08/04/19 14:37 Pulse Oximetry 96 08/04/19 14:37 Discharge Plan Discharge Prescriptions: No Action simvastatin 40 mg tablet 40 mg PO BEDTIME RF: 0 ascorbic acid (vitamin C) 1,000 mg tablet 1,000 mg PO BID RF: 0 metoprolol succinate 25 mg tablet extended release 24 hr 25 mg PO DAILY RF: 0 pregabalin 200 mg capsule 200 mg PO BID RF: 0 methenamine hippurate 1 gram tablet 1 gm PO BID RF: 0 tamsulosin 0.4 mg capsule 0.4 mg PO BID RF: 0 mirtazapine 7.5 mg tablet 15 mg PO BEDTIME RF: 0 aspirin [Aspir-81] 81 mg tablet,delayed release (DR/EC) 81 mg PO DAILY RF: 0 Creon 3,000-9,500- 15,000 unit capsule,delayed release(DR/EC) 1 cap PO TID RF: 0 aripiprazole [Abilify] 5 mg tablet 5 mg PO DAILY RF: 0 sertraline [Zoloft] 100 mg tablet 100 mg PO DAILY RF: 0 levothyroxine 75 mcg capsule 75 mcg PO DAILY RF: 0 clopidogrel 75 mg tablet 75 mg PO DAILY RF: 0 hydrocodone-acetaminophen [[place]] 5-325 mg tablet 1 tab PO Q6H PRN (Reason: Pain) RF: 0 bupropion HCl [Wellbutrin SR] 100 mg tablet sustained-release 12 hr 100 mg PO DAILY RF: 0 pantoprazole 40 mg tablet,delayed release (DR/EC) 40 mg PO DAILY RF: 0 imipenem-cilastatin [Primaxin IV] 500 mg recon soln IV RF: 0 Lantus U-100 Insulin 100 unit/mL solution 5 unit SUBCUT BEDTIME 30 Days Qty: 10 RF: 0 isosorbide mononitrate 30 mg tablet extended release 24 hr 15 mg PO DAILY 30 Days Qty: 30 RF: 0 sulfamethoxazole-trimethoprim [Bactrim] 400-80 mg tablet 0.5 tab PO DAILY 90 Days Qty: 90 RF: 0 acetaminophen [Tylenol] 325 mg Tablet 650 mg PO PRN PRN (Reason: Pain) RF: 0 miconazole nitrate 2 % Cream See Rx Instructions .ROUTE .COMPLEX PRN (Reason: SKIN) RF: 0 Miralax 17 gram Powder In Packet 17 g PO DAILY PRN (Reason: Constipation) RF: 0 Senna-S 8.6-50 mg Tablet 1 tab-cap PO BID PRN (Reason: Constipation) RF: 0 bisacodyl 10 mg Suppository 10 mg [place] DAILY PRN (Reason: Constipation) RF: 0 Enema 19-7 gram/118 mL Enema 118 ml [place] DAILY PRN (Reason: Constipation) RF: 0 Novolog Flexpen U-100 Insulin 100 unit/mL (3 mL) Insulin Pen See Rx Instructions .ROUTE .COMPLEX RF: 0 Coding Level of Care Code 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
[2019-08-04 15:08] LABS: Basophils # 0.1 10^3/uL (0.0-0.1); Basophils % 0.4 %; Eosinophils # 0.4 10^3/uL (0.0-0.8); Eosinophils % 2.7 %; Hematocrit 24.1 % (37.0-47.0); Lymphocytes # 0.8 10^3/uL (0.8-4.8); Lymphocytes % 5.1 %; Mean Corpuscular Volume 82.5 fL (81-99); Mean Platelet Volume 9.9 fL (7.4-10.4); Monocytes % 6.4 %; Neutrophils % 84.2 %; Nucleated Red Blood Cells % 0 %; Platelet Count 443 10^3/cmm (130-400); Red Blood Count 2.92 10^6/uL (4.1-5.3); Red Cell Distribution Width 23.5 % (12.1-15.1); White Blood Count 15.4 10^3/uL (4.0-10.0)
[2019-08-04] MEDS: sodium chloride 0.9% 500 ML IV (15:08)
[2019-08-04] MEDS: piperacillin-tazobactam 3.375 GM in sodium chloride 0.9% (plus) 50 ML IV (15:09)
[2019-08-04 15:17] LABS: Add Urine Microscopic? YES; Bilirubin Urine Neg (NEGATIVE); Blood Urine 3+ (Negative); Glucose Urine UA Norm (Normal); Ketones Urine Negative (Negative); Leukocyte Esterase Urine 2+ (Negative); Nitrate Urine Negative (Negative); Protein Urine 3+ (Negative); Specific Gravity, Urine 1.015 (1.005-1.030); Urine Appearance Hazy (CLEAR); Urine Color Yellow (Yellow); Urobilinogen Urine Norm (Negative); pH Urine 5 (5-7)
[2019-08-04 15:19] LABS: Alanine Aminotransferase 10 U/L (0-33); Albumin Level 1.8 g/dL (3.5-5.2); Alkaline Phosphatase 162 IU/L (35-105); Anion Gap 14.8 (5-19); Aspartate Amino Transferase 21 U/L (0-32); Blood Urea Nitrogen 16 mg/dL (6-20); Calcium 7.2 mg/dL (8.5-10.5); Carbon Dioxide 15 mmol/L (22-29); Chloride 111 mmol/L (98-107); Globulin 3.6 g/dL (1.3-4.6); Glomerular Filtration Rate 56.9 mL/min (90-130); Glucose 111 mg/dL (65-115); Lactate (Lactic Acid level) 1.5 mmol/L (0.5-2.2); Osmolality Calculated 281 mOsm/kg (285-295); Potassium 3.8 mmol/L (3.5-5.1); Sodium 137 mmol/L (136-145); Total Bilirubin 0.2 mg/dL (0.15-1.2); Total Protein 5.4 g/dL (6.6-8.7)
[2019-08-04 15:27] LABS: RBC Urine >100 /hpf (0-2); Squamous Epithelial Cell Urine 0-4 (0-5); WBC Urine TOO NUMEROUS TO CNT /hpf (0-5)
[2019-08-04 15:28] LABS: Add Urine Culture? Yes; Mucus Urine 3+
[2019-08-04 15:29] LABS: Bacteria Urine 3+
--- NOTE | 2019-08-04 15:34 | PC.NURSE ---
Pt brief changed. Beulah care provided. Pt has some abrasions to her labia.
--- NOTE | 2019-08-04 16:29 | PC.NURSE ---
Hemoccult test performed at bedside by Dr Zimmerman and chaperoned by this nurse. Pt tolerated well. Hemoccult mildly positive.
--- NOTE | 2019-08-04 17:40 | CTR_ITS ---
PROCEDURE INFORMATION: Exam: CT Abdomen And Pelvis Without Contrast Exam date and time: 08/04/2019 5:42 PM Age: 59 years old Clinical indication: Abdominal pain; Right; Prior surgery; Surgery date: 1-6 months; Surgery type: Stents; Patient HX: R flank pain and fever; Additional info: R/O obstructive pyelo TECHNIQUE: Imaging protocol: Computed tomography of the abdomen and pelvis without contrast. Radiation optimization: All CT scans at this facility use at least one of these dose optimization techniques: automated exposure control; mA and/or kV adjustment per patient size (includes targeted exams where dose is matched to clinical indication); or iterative reconstruction. COMPARISON: CT abdomen pelvis wo con [id number] 06/08/2019 9:49 PM RADIATION DOSE METRICS: Total DLP: 1456.93 mGy-cm FINDINGS: Tubes, catheters and devices: A balloon bladder catheter is present. Heart: The heart is enlarged. Lungs: There is bibasilar ground-glass opacity compatible with mild pneumonitis versus atelectasis. Mediastinum: A small hiatal hernia is present. Liver: Unremarkable.No mass. Gallbladder and bile ducts: There has been a cholecystectomy. Pancreas: Normal. No ductal dilation. Spleen: Normal. No splenomegaly. Adrenals: Normal. No mass. Kidneys and ureters: There are bilateral ureteral stents which are in good position. There is no right hydronephrosis. There is mild left hydronephrosis. There is bilateral perinephric fat stranding left greater than right. The left-sided perinephric fat stranding is especially prominent adjacent to the left renal pelvis and left ureter. This may reflect urinary tract infection. There is no evidence of renal calcifications. No calculi are identified in the ureters or bladder. Stomach and bowel: There is fluid density in the colon. This appearance may reflect diarrhea. Both the colon and small bowel are mildly distended with fluid but there is no transition zone or typical bowel obstruction. The appearance suggests mild enterocolitis. There are no air-fluid levels in the loops of small bowel. No ileus or obstruction. Appendix: No evidence of appendicitis. Intraperitoneal space: Unremarkable. No free air. No significant fluid collection. Vasculature: The aorta demonstrates mild atherosclerotic calcification. Lymph nodes: Multiple subcentimeter retroperitoneal lymph nodes are unchanged. Bladder: The bladder is collapsed but the bladder wall appears very thickened and there is marked haziness of the perivesical fat concerning for cystitis. Reproductive: Calcified uterine fibroids are noted. The ovaries/adnexa are unremarkable. Bones/joints: Osteopenia and moderate degenerative changes in the spine are noted. Soft tissues: Unremarkable. CT/CT kidney stone [id number] IMPRESSION: 1. Bilateral ureteral stents. There is mild left hydronephrosis with marked left perinephric and periureteral fat stranding. There is also prominent wall thickening of the collapsed bladder with perivesical stat stranding concerning for cystitis and urinary tract infection. No obstructing calculi. 2. Mild fluid distention of the small and large bowel without transition zone. There is no bowel obstruction but the appearance suggests mild enterocolitis. Radiation Dose CTDIVOL = (mGy): DLP = 1456.93 (mGy-cm)
[2019-08-04 18:13] LABS: Glucose Point of Care 110 mg/dL (70-110)
--- NOTE | 2019-08-04 19:22 | P.HP_ITS ---
Providers/Chief Complaint Admitting Physician: Jose Mosher Chief Complaint: RIGHT FLANK PAIN; FEVER History of Present Illness Leelee Guidry is a 59 year old pleasant lady with recurrent urinary tract infections, including Diflucan resistant Aida glabrata, and ESBL organisms, with recurrent hydronephrosis, with bilateral ureteral stenting, replaced as recently as June 27, has just undergone treatment for urinary tract infection with 10 days of Levaquin, which stopped just yesterday, was brought back to the hospital due to concern for sepsis, with [facility] 103 [facility], and discomfort in her bladder/lower abdomen, milky white appearing urine. In ER with noted leukocytosis of 15.4. Appears to also have new anemia, hemoglobin 7. UA with more than 100 RBC, too numerous to count WBC, negative nitrate. 1+ yeast. She received a dose of Zosyn, was started on IV hydration with normal saline. Her blood pressure is noted soft, but he is not hypotensive. Of note has a PICC line in the right arm placed about a week ago due to difficult peripheral access. She denies any cough, shortness of breath, sore throat, runny nose, or any other respiratory or GI complaints. Has not had any sick contacts. Review of Systems Const: Reports: fever and malaise; Denies: chills or body aches Eyes: Denies: change in vision or eye redness ENMT: Denies: throat pain, oral sores/lesions or ear pain Card: Denies: chest pain, edema, pre-syncope or shortness of breath on exertion Resp: Denies: shortness of breath, productive cough, change in phlegm color or coughing up blood GI: Denies: abdominal pain, nausea, vomiting, diarrhea, constipation, blood in stool or black tarry stool : Reports: genital lesion (Chronic labial lesions due to chronic indwelling Morales catheter); Denies: flank pain, urinary frequency or blood in urine Musc: Denies: back pain, joint swelling or redness Skin/Breast: Denies: rash, sores or new lesion Neuro: Denies: headache, numbness in extremities, weakness in extremities, dizziness, confusion or seizure-like activity Endo: Denies: excessive urination or excessive thirst Josh/Lymph: Denies: easy bleeding or purpura All/Imm: Denies: hives, throat swelling or tongue swelling Medications/Allergies Home Medications Medication Instructions Recorded Confirmed Last Taken Type aripiprazole 5 mg tablet 5 mg PO DAILY tab 04/10/19 08/04/19 08/04/19 History ascorbic acid (vitamin C) 1,000 mg 1,000 mg PO BID tab 04/10/19 08/04/19 08/04/19 History tablet aspirin 81 mg tablet,delayed 81 mg PO DAILY tab 04/10/19 08/04/19 08/04/19 History release bupropion HCl 100 mg tablet,12 hr 100 mg PO DAILY 04/10/19 08/04/19 08/04/19 History sustained-release clopidogrel 75 mg tablet 75 mg PO DAILY tab 04/10/19 08/04/19 08/04/19 History hydrocodone 5 mg-acetaminophen 325 1 tab PO Q6H PRN 04/10/19 08/04/19 08/04/19 History mg tablet levothyroxine 75 mcg capsule 75 mcg PO DAILY cap 04/10/19 08/04/19 08/04/19 History jftfzn-gsocnsom-oyjjqua 1 cap PO TID 04/10/19 08/04/19 08/04/19 History 3,000-9,500-15,000 unit capsule,delayed releas methenamine hippurate 1 gram tablet 1 gm PO BID 04/10/19 08/04/19 08/04/19 History metoprolol succinate 25 mg 25 mg PO DAILY tab 04/10/19 08/04/19 08/04/19 History tablet,extended release 24 hr mirtazapine 7.5 mg tablet 15 mg PO BEDTIME tab 04/10/19 08/04/19 08/03/19 History pantoprazole 40 mg tablet,delayed 40 mg PO DAILY 04/10/19 08/04/19 08/04/19 History release pregabalin 200 mg capsule 200 mg PO BID 04/10/19 08/04/19 08/04/19 History sertraline 100 mg tablet 100 mg PO DAILY 04/10/19 08/04/19 08/03/19 History simvastatin 40 mg tablet 40 mg PO BEDTIME tab 04/10/19 08/04/19 08/03/19 History tamsulosin 0.4 mg capsule 0.4 mg PO BID cap 04/10/19 08/04/19 08/04/19 History acetaminophen [Tylenol] 650 mg PO PRN PRN 06/08/19 08/04/19 08/04/19 History miconazole nitrate See Rx Instructions .ROUTE 06/08/19 08/04/19 Unknown History .COMPLEX PRN insulin aspart U-100 [Novolog See Rx Instructions .ROUTE .COMPLEX 07/15/19 08/04/19 08/04/19 History Flexpen U-100 Insulin] polyethylene glycol 3350 [Miralax] 17 g PO DAILY PRN 07/15/19 08/04/19 Unknown History sennosides-docusate sodium 1 tab-cap PO BID PRN 07/15/19 08/04/19 Unknown History [Senna-S] sodium phosphates [Enema] 118 ml [place] DAILY PRN 07/15/19 08/04/19 Unknown History insulin aspart U-100 [Novolog 100 unit SUBCUT DAILY 08/04/19 08/04/19 08/04/19 History Flexpen U-100 Insulin] insulin glargine [Lantus Solostar 100 unit SUBCUT BEDTIME 08/04/19 08/04/19 08/03/19 History U-100 Insulin] isosorbide mononitrate 30 mg PO DAILY 08/04/19 08/04/19 08/04/19 History levofloxacin in D5W 750 mg IV Q24H 08/04/19 08/04/19 08/02/19 History meropenem [Merrem] 1 g IV Q8H 08/04/19 08/04/19 08/02/19 History morphine concentrate 20 mg PO DAILY 08/04/19 08/04/19 08/03/19 History nut.tx,spec.frm,l-fr,iron-fos 0.08 - 2 ea PO BID 08/04/19 08/04/19 08/04/19 History [TwoCal HN] sulfamethoxazole-trimethoprim 1 tab PO DAILY 08/04/19 08/04/19 08/04/19 History [Bactrim] triamcinolone acetonide 1 applic TOPICAL BID 08/04/19 08/04/19 08/04/19 History Allergies Allergy/AdvReac Type Severity Reaction Status Date / Time codeine Allergy NA Verified 07/15/19 12:08 meperidine Allergy NA Verified 07/15/19 12:08 PFSH Acute PFSH: Medical History ASHD (arteriosclerotic heart disease) Bilateral hydronephrosis Bladder wall thickening Candidal UTI (urinary tract infection) Carotid stenosis, bilateral Chronic cystitis Chronic kidney disease (CKD) COPD (chronic obstructive pulmonary disease) Diabetes Essential hypertension Hydronephrosis of right kidney Hyperlipidemia PAD (peripheral artery disease) Surgical History S/P amputation of foot S/P below knee amputation S/P cataract extraction S/P tubal ligation Status post bilateral above knee amputation Status post tubal ligation Family History Family/Other Psychiatric illness CAD (coronary artery disease) Diabetes Cancer Stroke Social History Smoking and tobacco status: former smoker Alcohol intake: never Housing: Half-Way Marital status: / Current occupational status: disabled History of recent travel: No Current gender identity: Female Vitals/I&O/Wt Last Vital Signs Temp 99.5 F 08/04/19 19:00 Pulse 80 08/04/19 19:00 Resp 15 08/04/19 19:00 BP 104/47 08/04/19 19:00 Pulse Ox 97 08/04/19 19:00 08/04/19 08/04/19 08/04/19 06:59 14:59 22:59 Intake Total 550 / 550 Balance 550 / 550 Weight last 48 hrs Weight 65.771 kg Physical Exam Const: COMMON NORMALS: no apparent distress and oriented x3 HENMT: COMMON NORMALS: oropharynx normal Neck/C-Spine: COMMON NORMALS: no JVD Resp: COMMON NORMALS: normal respiratory effort and clear to auscultation bilaterally AUSCULTATION: clear to auscultation bilaterally Cardio: COMMON NORMALS: no JVD, regular rhythm, S1 normal heart sound, S2 normal heart sound and no murmurs RHYTHM: regular rhythm HEART SOUNDS: S1 normal and S2 normal GI: COMMON NORMALS: normal to inspection, nondistended, normoactive bowel sounds and soft to palpation PALPATION: Yes soft and Yes tender Details: other (hypogastrium) : OTHER: chronic labial lesion Extremity: COMMON NORMALS: no joint enlargement and no pedal edema NARRATIVE EXTREMITY EXAM: Bilateral AKA amputation. Neuro: COMMON NORMALS: oriented x3 and moves all extremities Skin: COMMON NORMALS: no jaundice and no petechiae Data : 08/04/19 14:34 08/04/19 14:34 Micro: Microbiology 08/04/19 15:30 Blood Culture - Preliminary Blood SPECIMEN COLLECTED 08/04/19 14:34 Blood Culture - Preliminary Blood SPECIMEN COLLECTED A&P Assessment and plan (1) Sepsis: Fever 103 [facility], leukocytosis is 15.4. Very dirty/milky appearing urine. Too many WBCs to count on UA, more than 100 RBCs. This appears to be complicated urinary tract infection, with left side pyelonephritis, urethritis. Organism may be suspected to be ESBL, given recent Klebsiella ESBL, as well as suspected candidal recurrent infection, with 1+ yeast noted in the urine. At this time blood pressure soft, but she is not hypotensive. Lactic acid is 1.5. She is awake, alert. Having some malaise. Renal function appears good. Blood culture drawn. Treat underlying infections. Monitor in ICU. Status: Acute Qualifiers: Sepsis acute organ dysfunction status: without acute organ dysfunction Sepsis type: sepsis due to unspecified organism Qualified Code(s): A41.9 - Sepsis, unspecified organism (2) Pyelonephritis of left kidney: With perinephric stranding, periureteral stranding on the left side. Significant pyuria, microscopic hematuria. Complicated urinary tract infection, with pyelonephritis. Suspected secondary to ESBL organism as well as Aida resistant to Diflucan. She had just completed a course of Levaquin yesterday. Given sepsis today it may be either resistant to Levaquin, or perhaps recurrence of invasive candidal infection. CT abdomen pelvis obtained to exclude hydronephrosis. Was reviewed by urology, and appears to have mild left-sided hydronephrosis, better than prior imaging. Bilateral stents in place. Last exchanged on 06/27. At this time will change antibiotic to Primaxin, and start on caspofungin. Follow urine culture. Blood culture. Following this admission, given recurrent sepsis, UTI, despite placement of ureteral stent and lack of evidence of obstruction, consideration should be given possibly to bilateral nephrostomies as current strategy appears not to be working well. Consider also referral for follow-up with infectious disease specialist for additional strategies at avoiding recurrence. Status: Acute (3) Aida UTI: With history of Diflucan resistant Aida glabrata. As above. Given persistent recurrence, chronic cystitis appearance of bladder, there is concern for possible invasive candidal infection. Status: Acute (4) Acute anemia: Acute normocytic anemia. She has not had outward bleeding. I am not sure at this time what the source is. Hemoccult was performed by ER physician, and result was equivocal. She has some microscopic hematuria, although no kavya blood seen. Requested for repeat FIT. Iron studies, B12, folic acid. LDH, haptoglobin. Status: Acute (5) Alkaline phosphatase elevation: Appears to have chronic alkaline phosphatase elevation. Will check GGT. Does not have right upper quadrant symptoms. Other liver parameters are normal. May warrant additional assessment once she is more stable. Status: Acute Attestations Medical Necessity Statement*: Admission of over 2 midnights is going to be needed for assessment management of sepsis secondary to complicated urinary tract infection with nonobstructive pyelonephritis, suspected candidal infection, with history of resistant candidal as well as ESBL organism infection. Critical Care Time: In addition to noncritical issues 25 minutes critical care time spent on assessment and management of sepsis secondary to complicated urinary tract infection and pyelonephritis, with multidrug-resistant organisms both bacterial and fungal, and presence of bilateral ureteral stenting. 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
[2019-08-04] MEDS: sodium chloride 0.9% 1,000 ML 100 ML IV (19:58)
[2019-08-04 20:40] LABS: Ferritin 106 ng/mL (15-150); Gamma Glutamyl Transferase 20 U/L (5-36); Iron 12 ug/dL (37-145); Percent Saturation 10.5 % (20-50); Total Iron Binding Capacity 114 mcg/dl; Unsaturated Iron Binding 102 ug/dL (112-347)
[2019-08-04 20:55] LABS: Folate Level 3.4 ng/mL (4.8-37.3)
[2019-08-04 20:56] LABS: Vitamin B12 611 pg/mL (232-1245)
[2019-08-04] MEDS: atorvastatin 40 mg Tablet 20 MG PO (21:51)
[2019-08-04] MEDS: pantoprazole DR 40 mg Tablet PO (21:51)
[2019-08-05] VITALS (72 sets, daily range): BP systolic 81–162; BP diastolic 36–75; PULSE 64–87; RESP 12–25; TEMP 36.6–37.7; O2SAT 86–100
[2019-08-05 04:59] LABS: Basophils # 0.1 10^3/uL (0.0-0.1); Basophils % 0.9 %; Eosinophils # 0.3 10^3/uL (0.0-0.8); Eosinophils % 3.2 %; Hematocrit 30.4 % (37.0-47.0); Lymphocytes % 9.1 %; Mean Corpuscular HGB Conc 30.3 g/dL (30.0-36.0); Mean Corpuscular Hemoglobin 24.8 pg (28.0-34.0); Mean Corpuscular Volume 81.9 fL (81-99); Monocytes # 1.2 10^3/uL (0.2-0.9); Neutrophils # 7.8 10^3/uL (1.8-7.7); Neutrophils % 74.3 %; Nucleated Red Blood Cells % 0 %; Platelet Count 369 10^3/cmm (130-400); Red Blood Count 3.71 10^6/uL (4.1-5.3); Red Cell Distribution Width 21.4 % (12.1-15.1); White Blood Count 10.4 10^3/uL (4.0-10.0)
[2019-08-05 05:12] LABS: Hemoglobin 9.2 g/dL (11.5-15.3)
[2019-08-05 05:28] LABS: Alanine Aminotransferase 13 U/L (0-33); Alkaline Phosphatase 174 IU/L (35-105); Blood Urea Nitrogen 15 mg/dL (6-20); Calcium 7.2 mg/dL (8.5-10.5); Carbon Dioxide 18 mmol/L (22-29); Chloride 112 mmol/L (98-107); Globulin 3.5 g/dL (1.3-4.6); Glomerular Filtration Rate 64.3 mL/min (90-130); Glucose 130 mg/dL (65-115); Osmolality Calculated 290 mOsm/kg (285-295); Sodium 141 mmol/L (136-145); Total Bilirubin 0.2 mg/dL (0.15-1.2); Total Protein 5.5 g/dL (6.6-8.7)
[2019-08-05 05:29] LABS: Aspartate Amino Transferase 32 U/L (0-32)
[2019-08-05] MEDS: sodium chloride 0.9% 1,000 ML 10 ML IV (08:30)
--- NOTE | 2019-08-05 09:40 | PM.PN ---
Subjective Subjective: Interval history: Leelee reports she feels pretty rough still. She is fatigued. She states her bladder hurts. No chest pain or shortness of breath. History and physical was reviewed. Medications: Reviewed: Yes Vitals/I&O/Wt Last Vital Signs Temp 99.9 F H 08/05/19 08:00 Pulse 82 08/05/19 05:20 Resp 17 08/05/19 05:20 BP 141/59 08/05/19 05:20 Pulse Ox 91 08/05/19 05:20 08/04/19 08/05/19 08/05/19 22:59 06:59 14:59 Intake Total 1840 / 1840 1220 / 3060 Output Total 250 / 250 1800 / 2050 Balance 1590 / 1590 -580 / 1010 Weight last 48 hrs Weight 65.771 kg Physical Exam Narrative: EXAM NARRATIVE: General exam is no apparent distress Cardiovascular regular rate and rhythm without murmur Lungs clear no wheezing or crackles Abdomen is slight tenderness suprapubic area. Morales noted. Extremities ujips-wyn-sjig amputations noted bilaterally Data : 08/05/19 04:31 08/05/19 04:31 Micro: Microbiology 08/04/19 15:30 Blood Culture - Preliminary Blood SPECIMEN COLLECTED 08/04/19 14:34 Blood Culture - Preliminary Blood SPECIMEN COLLECTED A&P Assessment and plan (1) Sepsis: Fever at correction, soft blood pressure, elevated leukocyte count with source urine. Past history of significant ESBL infection, as well as Aida resistant to Diflucan. Was placed on Primaxin, capsofungin on admission which will be continued awaiting cultures Blood cultures pending as well as urine culture. Status: Acute Qualifiers: Sepsis acute organ dysfunction status: without acute organ dysfunction Sepsis type: sepsis due to unspecified organism Qualified Code(s): A41.9 - Sepsis, unspecified organism (2) Pyelonephritis of left kidney: Stranding seen on CT scan. See notations above. Recently completed a course of Levaquin. CT scan demonstrates left sided hydronephrosis, improved from previous imagings. Does have bilateral ureteral stents, exchanged June 27. Will review case with urology, possible consultation. Secondary to recurrent sepsis consider outpatient ID referral Status: Acute (3) Aida UTI: With history of Diflucan resistant Aida glabrata. Capsule function initiated Status: Acute (4) Acute anemia: Improved following 1 unit of packed red blood cells. Stool Hemoccult pending. Was iron deficient. Folate slightly low. Status: Acute (5) Alkaline phosphatase elevation: Appears to be chronically elevated Status: Acute Attestations Medical Necessity Statement*: Needs continued hospital stay for IV antibiotics secondary to sepsis. Coding Level of Care Code Acute Counseling Program Leader for g Fwd Diagnoses Sepsis A41.9 Sepsis acute organ dysfunction status: without acute organ dysfunction Sepsis type: sepsis due to unspecified organism Pyelonephritis of left kidney N12 Aida UTI B37.49 Acute anemia D64.9 Alkaline phosphatase elevation R74.8
[2019-08-05] MEDS: clopidogrel 75 mg Tablet PO (10:34)
[2019-08-05] MEDS: folic acid 1 mg Tablet PO (10:34)
[2019-08-05] MEDS: pantoprazole DR 40 mg Tablet PO ×2 (10:34→17:18)
[2019-08-05] MEDS: ARIPiprazole 10 mg Tablet 5 MG PO (10:34)
[2019-08-05] MEDS: pregabalin 100 mg Capsule 200 MG PO ×2 (10:34→17:18)
[2019-08-05] MEDS: sertraline 100 mg Tablet PO (10:35)
[2019-08-05] MEDS: levothyroxine 150 mcg Tablet 75 MCG PO (10:35)
[2019-08-05] MEDS: buPROPion SR (12 HR) 100 mg Tablet PO (10:58)
[2019-08-05] MEDS: lipase-protease-amylase Capsule 1 EACH PO ×3 (10:59→17:18)
--- NOTE | 2019-08-05 11:00 | PC.NURSE ---
PICC dressing change done. [place] View Contour Shield dressing applied. Blood return started out sluggish but improved with 2 flushes.
--- NOTE | 2019-08-05 14:37 | PC.NURSE ---
[facility]. Pt transported via bed to [facility] with all of patients belongings.
[2019-08-05] MEDS: atorvastatin 40 mg Tablet 20 MG PO (21:21)
[2019-08-06] VITALS (8 sets, daily range): BP systolic 103–126; BP diastolic 55–70; PULSE 8–78; RESP 14–20; TEMP 36.4–36.8; O2SAT 94–96
[2019-08-06] MEDS: sodium chloride 0.9% 1,000 ML 10 ML IV (04:38)
[2019-08-06 05:06] LABS: Basophils # 0.1 10^3/uL (0.0-0.1); Basophils % 0.7 %; Eosinophils # 0.9 10^3/uL (0.0-0.8); Eosinophils % 6.9 %; Hematocrit 30.7 % (37.0-47.0); Hemoglobin 9.2 g/dL (11.5-15.3); Lymphocytes # 1.3 10^3/uL (0.8-4.8); Lymphocytes % 10.4 %; Mean Corpuscular Hemoglobin 25.2 pg (28.0-34.0); Mean Corpuscular Volume 84.1 fL (81-99); Mean Platelet Volume 10.1 fL (7.4-10.4); Monocytes # 1.7 10^3/uL (0.2-0.9); Monocytes % 13.7 %; Neutrophils # 8.2 10^3/uL (1.8-7.7); Neutrophils % 67.2 %; Nucleated Red Blood Cells % 0 %; Platelet Count 370 10^3/cmm (130-400); Red Blood Count 3.65 10^6/uL (4.1-5.3); Red Cell Distribution Width 21.9 % (12.1-15.1); White Blood Count 12.3 10^3/uL (4.0-10.0)
[2019-08-06 05:27] LABS: Alanine Aminotransferase 10 U/L (0-33); Albumin Level 1.8 g/dL (3.5-5.2); Alkaline Phosphatase 188 IU/L (35-105); Anion Gap 11.3 (5-19); Aspartate Amino Transferase 15 U/L (0-32); Blood Urea Nitrogen 13 mg/dL (6-20); Calcium 7.9 mg/dL (8.5-10.5); Carbon Dioxide 19 mmol/L (22-29); Chloride 113 mmol/L (98-107); Globulin 3.9 g/dL (1.3-4.6); Glomerular Filtration Rate 73.7 mL/min (90-130); Glucose 178 mg/dL (65-115); Osmolality Calculated 289 mOsm/kg (285-295); Potassium 4.3 mmol/L (3.5-5.1); Sodium 139 mmol/L (136-145); Total Bilirubin 0.2 mg/dL (0.15-1.2); Total Protein 5.7 g/dL (6.6-8.7)
--- NOTE | 2019-08-06 06:41 | PM.CONSULT ---
Providers/Reason For Consult Consulting Physican/Specialty*: Urology/Poon Reason for Consult*: Recurrent bacterial and fungal infection, recurrent bilateral ureteral obstruction with chronic indwelling stents Attending Physician: Harrison Neal MD Primary Care Provider: Bryan History of Present Illness History of Present Illness Leelee Guidry is a 59 year old female well-known to me for history of intermittent bilateral hydronephrosis felt to be secondary to distal ureteral obstruction from chronic cystitis. She has a history of well-documented fungal UTI and bacterial UTI with recurrent septic episodes. Ultimately bilateral ureteral stents were placed with improvement in upper urinary tract drainage. She has had multiple courses of prolonged antifungals but with no resolution despite significant improvement while on treatment. 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 We have talked about changing our upper urinary tract drainage strategy in the past from indwelling ureteral stents to percutaneous nephrostomies but have elected to continue the stents short-term. At times her bladder is poorly drained and she has had prolonged bouts with indwelling Morales catheter. Exact etiology of that is unclear but its expected some of that is diabetic cystopathy related. She was readmitted this hospital stay for UTI sepsis. CT scan showed mild left hydronephrosis but overall improvement since last recent stent change. I was consulted for opinion regarding management of upper urinary tracts etc. Meds/Allergies Home Medications and Allergies Home Medications Medication Instructions Recorded Confirmed Last Taken Type aripiprazole 5 mg tablet 5 mg PO DAILY tab 04/10/19 08/04/19 08/04/19 History ascorbic acid (vitamin C) 1,000 mg 1,000 mg PO BID tab 04/10/19 08/04/19 08/04/19 History tablet aspirin 81 mg tablet,delayed 81 mg PO DAILY tab 04/10/19 08/04/19 08/04/19 History release bupropion HCl 100 mg tablet,12 hr 100 mg PO DAILY 04/10/19 08/04/19 08/04/19 History sustained-release clopidogrel 75 mg tablet 75 mg PO DAILY tab 04/10/19 08/04/19 08/04/19 History hydrocodone 5 mg-acetaminophen 325 1 tab PO Q6H PRN 04/10/19 08/04/19 08/04/19 History mg tablet levothyroxine 75 mcg capsule 75 mcg PO DAILY cap 04/10/19 08/04/19 08/04/19 History [id number]-tkoysgwd-[id number] 1 cap PO TID 04/10/19 08/04/19 08/04/19 History 3,000-9,500-15,000 unit capsule,delayed releas methenamine hippurate 1 gram tablet 1 gm PO BID 04/10/19 08/04/19 08/04/19 History metoprolol succinate 25 mg 25 mg PO DAILY tab 04/10/19 08/04/19 08/04/19 History tablet,extended release 24 hr mirtazapine 7.5 mg tablet 15 mg PO BEDTIME tab 04/10/19 08/04/19 08/03/19 History pantoprazole 40 mg tablet,delayed 40 mg PO DAILY 04/10/19 08/04/19 08/04/19 History release pregabalin 200 mg capsule 200 mg PO BID 04/10/19 08/04/19 08/04/19 History sertraline 100 mg tablet 100 mg PO DAILY 04/10/19 08/04/19 08/03/19 History simvastatin 40 mg tablet 40 mg PO BEDTIME tab 04/10/19 08/04/19 08/03/19 History tamsulosin 0.4 mg capsule 0.4 mg PO BID cap 04/10/19 08/04/19 08/04/19 History acetaminophen [Tylenol] 650 mg PO PRN PRN 06/08/19 08/04/19 08/04/19 History miconazole nitrate See Rx Instructions .ROUTE 06/08/19 08/04/19 Unknown History .COMPLEX PRN insulin aspart U-100 [Novolog See Rx Instructions .ROUTE .COMPLEX 07/15/19 08/04/19 08/04/19 History Flexpen U-100 Insulin] polyethylene glycol 3350 [Miralax] 17 g PO DAILY PRN 07/15/19 08/04/19 Unknown History sennosides-docusate sodium 1 tab-cap PO BID PRN 07/15/19 08/04/19 Unknown History [Senna-S] sodium phosphates [Enema] 118 ml SD DAILY PRN 07/15/19 08/04/19 Unknown History insulin aspart U-100 [Novolog 100 unit SUBCUT DAILY 08/04/19 08/04/19 08/04/19 History Flexpen U-100 Insulin] insulin glargine [Lantus Solostar 100 unit SUBCUT BEDTIME 08/04/19 08/04/19 08/03/19 History U-100 Insulin] isosorbide mononitrate 30 mg PO DAILY 08/04/19 08/04/19 08/04/19 History levofloxacin in D5W 750 mg IV Q24H 08/04/19 08/04/19 08/02/19 History meropenem [Merrem] 1 g IV Q8H 08/04/19 08/04/19 08/02/19 History morphine concentrate 20 mg PO DAILY 08/04/19 08/04/19 08/03/19 History nut.tx,spec.frm,l-fr,iron-fos 0.08 - 2 ea PO BID 08/04/19 08/04/19 08/04/19 History [TwoCal HN] sulfamethoxazole-trimethoprim 1 tab PO DAILY 08/04/19 08/04/19 08/04/19 History [Bactrim] triamcinolone acetonide 1 applic TOPICAL BID 08/04/19 08/04/19 08/04/19 History Allergies Allergy/AdvReac Type Severity Reaction Status Date / Time codeine Allergy NA Verified 07/15/19 12:08 meperidine Allergy NA Verified 07/15/19 12:08 Current Medications Current Medications Generic Name Dose Route Start Last Admin Trade Name Freq PRN Reason Stop Dose Admin Lipase/Protease/Amylase 1 each 08/05/19 08:00 08/05/19 17:18 Zenpep PO 1 each TIDWM KEVIN Administration Aripiprazole 5 mg 08/05/19 09:00 08/05/19 10:34 Abilify PO 5 mg DAILY KEVIN Administration Atorvastatin Calcium 20 mg 08/04/19 21:00 08/05/19 21:21 Lipitor PO 20 mg BEDTIME KEVIN Administration Bupropion HCl 100 mg 08/05/19 09:00 08/05/19 10:58 Wellbutrin Sr (12 Hr) PO 100 mg DAILY KEVIN Administration Clopidogrel Bisulfate 75 mg 08/05/19 09:00 08/05/19 10:34 Plavix PO 75 mg DAILY KEVIN Administration Folic Acid 1 mg 08/05/19 10:00 08/05/19 10:34 Folic Acid PO 1 mg DAILY KEVIN Administration Sodium Chloride 1,000 mls @ 100 mls/hr 08/04/19 17:00 08/06/19 04:38 Sodium Chloride 0.9% IV 10 mls/hr .Q10H KEVIN Administration Caspofungin 50 mg/ Sodium 250 mls @ 250 mls/hr 08/05/19 20:00 08/05/19 21:21 Chloride IV 250 mls/hr Q24H KEVIN Administration Imipenem/Cilastatin Sodium 500 100 mls @ 200 mls/hr 08/05/19 16:30 08/05/19 23:41 mg/ Sodium Chloride IV 200 mls/hr Q8H KEVIN Administration Protocol Levothyroxine Sodium 75 mcg 08/05/19 09:00 08/05/19 10:35 Synthroid PO 75 mcg DAILY KEVIN Administration Morphine Sulfate 20 mg 08/05/19 09:00 08/05/19 10:33 Morphine Oral Liq Ud PO 20 mg DAILY KEVIN Administration Pantoprazole Sodium 40 mg 08/04/19 20:05 08/05/19 17:18 Protonix PO 40 mg BID KEVIN Administration Pregabalin 200 mg 08/05/19 09:00 08/05/19 17:18 Lyrica PO 200 mg BID KEVIN Administration Sertraline HCl 100 mg 08/05/19 09:00 08/05/19 10:35 Zoloft PO 100 mg DAILY KEVIN Administration PFSH Acute PFSH: Medical History ASHD (arteriosclerotic heart disease) Bilateral hydronephrosis Bladder wall thickening Candidal UTI (urinary tract infection) Carotid stenosis, bilateral Chronic cystitis Chronic kidney disease (CKD) COPD (chronic obstructive pulmonary disease) Diabetes Essential hypertension Hydronephrosis of right kidney Hyperlipidemia PAD (peripheral artery disease) Surgical History S/P amputation of foot S/P below knee amputation S/P cataract extraction S/P tubal ligation Status post bilateral above knee amputation Status post tubal ligation Family History Family/Other Psychiatric illness CAD (coronary artery disease) Diabetes Cancer Stroke Social History Smoking and tobacco status: former smoker Alcohol intake: never Housing: Group Home Marital status: / Current occupational status: disabled History of recent travel: No Current gender identity: Female Vitals/I&O/Wt Last Vital Signs Temp 97.9 F 08/06/19 04:00 Pulse 75 08/06/19 04:00 Resp 20 H 08/06/19 04:00 BP 108/67 08/06/19 04:00 Pulse Ox 95 08/06/19 04:00 08/05/19 08/05/19 08/06/19 14:59 22:59 06:59 Intake Total 586 / 586 100 / 686 201.333 / 887.333 Output Total 650 / 650 400 / 1050 Balance -64 / -64 -300 / -364 201.333 / -162.667 Weight last 48 hrs Weight 145 lb Physical Exam Const: COMMON NORMALS: no apparent distress, alert and well nourished GENERAL APPEARANCE: well kempt and well developed ORIENTATION/CONSCIOUSNESS: not confused HENMT: COMMON NORMALS: normocephalic and head/scalp atraumatic HEAD & SCALP: normocephalic and atraumatic Neck/C-Spine: COMMON NORMALS: full ROM Resp: COMMON NORMALS: normal respiratory effort EFFORT & INSPECTION: No labored and No actively coughing Extremity: OTHER: Lateral AKA Neuro: SENSORIUM/ORIENTATION: Yes alert Psych: COMMON NORMALS: mental status grossly normal APPEARANCE: Yes grossly normal and Yes well kempt ATTITUDE: Yes calm and Yes engaged Data Micro: Micro: Microbiology 08/04/19 15:30 Blood Culture - Pr eliminary Blood NEGATIVE TO ELSA E 08/04/19 14:34 Blood Culture - Pr eliminary Blood NEGATIVE TO ELSA E 08/04/19 14:34 Urine Culture - Pr eliminary Urine,Clean Catch A&P Assessment and plan (1) Bilateral hydronephrosis: Status: Acute (2) Bladder wall thickening: Status: Acute (3) Chronic cystitis: Status: Acute (4) Urinary tract infection: Status: Acute (5) Candidal UTI (urinary tract infection): Status: Acute Coding Level of Care Code Acute Parole Board Member for [facility] Diagnoses Bilateral hydronephrosis N13.30 Bladder wall thickening N32.89 Chronic cystitis N30.20 Urinary tract infection N39.0 Candidal UTI (urinary tract infection) B37.49
[2019-08-06] MEDS: clopidogrel 75 mg Tablet PO (09:06)
[2019-08-06] MEDS: buPROPion SR (12 HR) 100 mg Tablet PO (09:06)
[2019-08-06] MEDS: pregabalin 100 mg Capsule 200 MG PO ×2 (09:06→17:15)
[2019-08-06] MEDS: folic acid 1 mg Tablet PO (09:06)
[2019-08-06] MEDS: ARIPiprazole 10 mg Tablet 5 MG PO (09:07)
[2019-08-06] MEDS: pantoprazole DR 40 mg Tablet PO ×2 (09:07→17:15)
[2019-08-06] MEDS: sertraline 100 mg Tablet PO (09:07)
[2019-08-06] MEDS: levothyroxine 150 mcg Tablet 75 MCG PO (09:07)
[2019-08-06] MEDS: lipase-protease-amylase Capsule 1 EACH PO ×2 (09:24→17:15)
[2019-08-06 09:35] LABS: Glucose Point of Care 184 mg/dL (70-110)
[2019-08-06 11:50] LABS: Glucose Point of Care 176 mg/dL (70-110)
--- NOTE | 2019-08-06 13:11 | P.PN_ITS ---
Subjective Subjective: Interval history: Leelee reports she feels a little bit better. No abdominal pain. No nausea. Medications: Reviewed: Yes Vitals/I&O/Wt Last Vital Signs Temp 98.1 F 08/06/19 11:32 Pulse 77 08/06/19 11:32 Resp 14 08/06/19 11:32 BP 103/66 08/06/19 11:32 Pulse Ox 95 08/06/19 11:32 08/05/19 08/06/19 08/06/19 22:59 06:59 14:59 Intake Total 100 / 686 301.333 / 987.333 960 / 960 Output Total 400 / 1050 Balance -300 / -364 301.333 / -62.667 960 / 960 Weight last 48 hrs Weight 65.771 kg Physical Exam Narrative: EXAM NARRATIVE: General exam is no apparent distress Cardiovascular regular rate and rhythm without murmur Lungs clear no wheezing or crackles Abdomen positive bowel sounds. No tenderness. Extremities [id number] amputations noted bilaterally Data : 08/06/19 04:46 08/06/19 04:46 Micro: Microbiology 08/04/19 15:30 Blood Culture - Preliminary Blood NEGATIVE TO DATE 08/04/19 14:34 Blood Culture - Preliminary Blood NEGATIVE TO DATE 08/04/19 14:34 Urine Culture - Preliminary Urine,Clean Catch A&P Assessment and plan (1) Sepsis: Fever at [facility], soft blood pressure, elevated leukocyte count with source urine. Past history of significant ESBL infection, as well as Aida resistant to Diflucan. Was placed on Primaxin, capsofungin on admission which will be continued awaiting cultures Urine culture negative to date. This could be negative as she was on Levaquin prior to this admission. If urine culture remains negative, with no fungal growth will discharge on ertapenem to complete 14 days of IV therapy minus what ever therapy was given as Primaxin here at the hospital. Blood cultures negative to date Status: Acute Qualifiers: Sepsis acute organ dysfunction status: without acute organ dysfunction Sepsis type: sepsis due to unspecified organism Qualified Code(s): A41.9 - Sepsis, unspecified organism (2) Pyelonephritis of left kidney: Stranding seen on CT scan. See notations above. Recently completed a course of Levaquin. CT scan demonstrates left sided hydronephrosis, improved from previous imagings. Does have bilateral ureteral stents, exchanged June 27. Appreciate urology evaluation. Patient currently does not want nephrostomy tubes but will think about it. Secondary to recurrent sepsis consider outpatient ID referral Status: Acute (3) Aida UTI: With history of Diflucan resistant Aida glabrata. Capsofungin initiated on admission. Urine culture negative to date. Awaiting final. Status: Acute (4) Acute anemia: Improved following 1 unit of packed red blood cells. Stool Hemoccult pending. Was iron deficient. Folate slightly low. Hemoglobin remained stable following transfusion Status: Acute (5) Alkaline phosphatase elevation: Appears to be chronically elevated Status: Acute Attestations Medical Necessity Statement*: Needs continued hospitalization for IV antibiotics secondary to pyelonephritis Coding Level of Care Code Acute Bad Credit Collector for [facility] Diagnoses Sepsis A41.9 Sepsis acute organ dysfunction status: without acute organ dysfunction Sepsis type: sepsis due to unspecified organism Pyelonephritis of left kidney N12 Aida UTI B37.49 Acute anemia D64.9 Alkaline phosphatase elevation R74.8
[2019-08-06 16:59] LABS: Glucose Point of Care 138 mg/dL (70-110)
[2019-08-06] MEDS: sodium chloride 0.9% 1,000 ML 100 ML IV (17:08)
[2019-08-06] MEDS: atorvastatin 40 mg Tablet 20 MG PO (20:01)
[2019-08-06 21:16] LABS: Glucose Point of Care 119 mg/dL (70-110)
[2019-08-07] VITALS: BP 119/71; PULSE 78; RESP 20; TEMP 36.8; O2SAT 94
[2019-08-07 04:00] VITALS: BP 133/69; PULSE 83; RESP 20; TEMP 36.7; O2SAT 95
[2019-08-07 05:20] LABS: Basophils # 0.1 10^3/uL (0.0-0.1); Basophils % 0.6 %; Eosinophils # 0.8 10^3/uL (0.0-0.8); Hematocrit 31.4 % (37.0-47.0); Hemoglobin 8.9 g/dL (11.5-15.3); Lymphocytes # 1.1 10^3/uL (0.8-4.8); Lymphocytes % 8.2 %; Mean Corpuscular HGB Conc 28.3 g/dL (30.0-36.0); Mean Corpuscular Hemoglobin 24.5 pg (28.0-34.0); Mean Corpuscular Volume 86.3 fL (81-99); Mean Platelet Volume 9.9 fL (7.4-10.4); Monocytes # 1.4 10^3/uL (0.2-0.9); Monocytes % 10.5 %; Neutrophils # 10.2 10^3/uL (1.8-7.7); Neutrophils % 73.9 %; Nucleated Red Blood Cells % 0 %; Platelet Count 387 10^3/cmm (130-400); Red Blood Count 3.64 10^6/uL (4.1-5.3); Red Cell Distribution Width 22.2 % (12.1-15.1); White Blood Count 13.7 10^3/uL (4.0-10.0)
[2019-08-07 06:00] LABS: Alanine Aminotransferase 11 U/L (0-33); Albumin Level 1.8 g/dL (3.5-5.2); Alkaline Phosphatase 218 IU/L (35-105); Anion Gap 15.1 (5-19); Aspartate Amino Transferase 27 U/L (0-32); Blood Urea Nitrogen 12 mg/dL (6-20); Calcium 7.5 mg/dL (8.5-10.5); Carbon Dioxide 17 mmol/L (22-29); Chloride 115 mmol/L (98-107); Globulin 3.5 g/dL (1.3-4.6); Glomerular Filtration Rate 85.9 mL/min (90-130); Glucose 94 mg/dL (65-115); Osmolality Calculated 292 mOsm/kg (285-295); Potassium 4.1 mmol/L (3.5-5.1); Sodium 143 mmol/L (136-145); Total Bilirubin 0.2 mg/dL (0.15-1.2); Total Protein 5.3 g/dL (6.6-8.7)
[2019-08-07 06:47] LABS: Glucose Point of Care 90 mg/dL (70-110)
[2019-08-07 07:48] VITALS: BP 128/69; PULSE 83; RESP 16; TEMP 36.7; O2SAT 95
[2019-08-07] MEDS: levothyroxine 150 mcg Tablet 75 MCG PO (09:24)
[2019-08-07] MEDS: ARIPiprazole 10 mg Tablet 5 MG PO (09:24)
[2019-08-07] MEDS: pantoprazole DR 40 mg Tablet PO (09:25)
[2019-08-07] MEDS: folic acid 1 mg Tablet PO (09:25)
[2019-08-07] MEDS: buPROPion SR (12 HR) 100 mg Tablet PO (09:25)
[2019-08-07] MEDS: clopidogrel 75 mg Tablet PO (09:25)
[2019-08-07] MEDS: pregabalin 100 mg Capsule 200 MG PO (09:25)
[2019-08-07] MEDS: sertraline 100 mg Tablet PO (09:25)
--- NOTE | 2019-08-07 09:26 | PM.DCS ---
Discharge Providers Date of Admission: 08/04/19 16:50 Date of Discharge: August 07, 2019 Attending Provider at Admission: Jose Mosher Attending Provider at Discharge: Harrison Neal MD Diagnoses at Discharge Discharge Diagnosis (1) Sepsis: Status: Acute Problem details: Improved. Received Primaxin while in the hospital. Urine culture negative but was on treatment prior to admission. No fungal growth. Qualifiers: Sepsis acute organ dysfunction status: without acute organ dysfunction Sepsis type: sepsis due to unspecified organism Qualified Code(s): A41.9 - Sepsis, unspecified organism (2) Pyelonephritis of left kidney: Status: Acute Problem details: Improved (3) Aida UTI: Status: Acute Problem details: No evidence of fungal growth on culture at hospital. (4) Acute anemia: Status: Acute (5) Alkaline phosphatase elevation: Status: Acute Problem details: Consider outpatient follow-up Reason for Visit Reason for Visit: Reason For Visit: RIGHT FLANK PAIN; FEVER Hospital Course Hospital Course: Leelee presented from [facility] with fever, recent UTI, not improving on Levaquin and lower blood pressures. She was diagnosed with sepsis and secondary to her past history of resistant candidal UTI, ESBL she was placed on Primaxin and capsofungin. Throughout her hospital course she continued to improve, blood pressures normalized. She did receive 1 unit of packed red blood cells while in the hospital, with studies indicating iron deficiency. No evidence of ongoing GI bleeding was noted. On day of discharge, her final urine culture was negative. After visiting and consulting urology it was thought to continue ertapenem on discharge for 10 days(giving her 14 days total of IV antibiotics consisting of Carbapenem) secondary to her past history of ESBL and the fact she may not have had growth of her urine secondary to antibiotics on presentation. She did not grow any fungal organism from her urine and antifungal will not be continued at discharge. Physical Exam Narrative: EXAM NARRATIVE: General exam no apparent distress Cardiovascular regular rate and rhythm without murmur Lungs clear Abdomen is soft, positive bowel sounds Extremities amputations as noted Discharge Data Data Completed and Pending: Completed Studies During Hospitalization Category Date Time Status CT kidney stone 7 4176 Stat Cat Scan 08/04/19 17:40 Completed XR chest 1V shant ble 13286 Urgent Exams 08/04/19 14:44 Completed Pending at discharge Category Date Time Status Blood Culture Sta t Lab 08/04/19 15:30 Results Immunochemical Fe joana OCB Routine Lab 08/04/19 20:02 Ordered Labs from last 24 hours 08/07/19 08/07/19 08/07/19 06:38 04:45 04:45 WBC 13.7 H RBC 3.64 L Hgb 8.9 L Hct 31.4 L MCV 86.3 MCH 24.5 L MCHC 28.3 L D RDW 22.2 H Plt Count 387 MPV 9.9 Neut % (Auto) 73.9 Lymph % (Auto) 8.2 [place] % (Auto) 10.5 Eos % (Auto) 6.0 Baso % (Auto) 0.6 Neut # (Auto) 10.2 H Lymph # (Auto) 1.1 [place] # (Auto) 1.4 H Eos # (Auto) 0.8 Baso # (Auto) 0.1 Nucleated RBC % (a uto) 0 Nucleated RBCs # 0.0 Sodium 143 Potassium 4.1 Chloride 115 H Carbon Dioxide 17 L Anion Gap 15.1 BUN 12 Creatinine 0.7 GFR Calculation 85.9 L Glucose 94 POC Glucose 90 Calculated Osmolal ity 292 Calcium 7.5 L Total Bilirubin 0.2 AST 27 ALT 11 Alkaline Phosphata se 218 H Total Protein 5.3 L Albumin 1.8 L Globulin 3.5 08/06/19 08/06/19 08/06/19 21:05 16:11 11:29 WBC RBC Hgb Hct MCV MCH MCHC RDW Plt Count MPV Neut % (Auto) Lymph % (Auto) [place] % (Auto) Eos % (Auto) Baso % (Auto) Neut # (Auto) Lymph # (Auto) [place] # (Auto) Eos # (Auto) Baso # (Auto) Nucleated RBC % (a uto) Nucleated RBCs # Sodium Potassium Chloride Carbon Dioxide Anion Gap BUN Creatinine GFR Calculation Glucose POC Glucose 119 138 176 Calculated Osmolal ity Calcium Total Bilirubin AST ALT Alkaline Phosphata se Total Protein Albumin Globulin 08/06/19 09:32 WBC RBC Hgb Hct MCV MCH MCHC RDW Plt Count MPV Neut % (Auto) Lymph % (Auto) [place] % (Auto) Eos % (Auto) Baso % (Auto) Neut # (Auto) Lymph # (Auto) [place] # (Auto) Eos # (Auto) Baso # (Auto) Nucleated RBC % (a uto) Nucleated RBCs # Sodium Potassium Chloride Carbon Dioxide Anion Gap BUN Creatinine GFR Calculation Glucose POC Glucose 184 Calculated Osmolal ity Calcium Total Bilirubin AST ALT Alkaline Phosphata se Total Protein Albumin Globulin Vitals: Last Vital Signs Temp 98.1 F 08/07/19 07:48 Pulse 83 08/07/19 07:48 Resp 16 08/07/19 07:48 BP 128/69 08/07/19 07:48 Pulse Ox 95 08/07/19 07:48 Discharge Plan Discharge Patient Disposition: Xfer SNF Condition: Fair Prescriptions: New ertapenem 1 gram recon soln 1 gm IM Q24H 10 Days Qty: 10 RF: 0 Continued simvastatin 40 mg tablet 40 mg PO BEDTIME RF: 0 ascorbic acid (vitamin C) 1,000 mg tablet 1,000 mg PO BID RF: 0 metoprolol succinate 25 mg tablet extended release 24 hr 25 mg PO DAILY RF: 0 pregabalin 200 mg capsule 200 mg PO BID RF: 0 methenamine hippurate 1 gram tablet 1 gm PO BID RF: 0 tamsulosin 0.4 mg capsule 0.4 mg PO BID RF: 0 mirtazapine 7.5 mg tablet 15 mg PO BEDTIME RF: 0 aspirin [Aspir-81] 81 mg tablet,delayed release (DR/EC) 81 mg PO DAILY RF: 0 Creon 3,000-9,500- 15,000 unit capsule,delayed release(DR/EC) 1 cap PO TID RF: 0 aripiprazole [Abilify] 5 mg tablet 5 mg PO DAILY RF: 0 sertraline [Zoloft] 100 mg tablet 100 mg PO DAILY RF: 0 levothyroxine 75 mcg capsule 75 mcg PO DAILY RF: 0 clopidogrel 75 mg tablet 75 mg PO DAILY RF: 0 hydrocodone-acetaminophen [[place]] 5-325 mg tablet 1 tab PO Q6H PRN (Reason: Pain) RF: 0 bupropion HCl [Wellbutrin SR] 100 mg tablet sustained-release 12 hr 100 mg PO DAILY RF: 0 pantoprazole 40 mg tablet,delayed release (DR/EC) 40 mg PO DAILY RF: 0 acetaminophen [Tylenol] 325 mg Tablet 650 mg PO PRN PRN (Reason: Pain) RF: 0 miconazole nitrate 2 % Cream See Rx Instructions .ROUTE .COMPLEX PRN (Reason: SKIN) RF: 0 polyethylene glycol 3350 [Miralax] 17 gram Powder In Packet 17 g PO DAILY PRN (Reason: Constipation) RF: 0 sennosides-docusate sodium [Senna-S] 8.6-50 mg Tablet 1 tab-cap PO BID PRN (Reason: Constipation) RF: 0 Enema 19-7 gram/118 mL Enema 118 ml [place] DAILY PRN (Reason: Constipation) RF: 0 insulin aspart U-100 [Novolog Flexpen U-100 Insulin] 100 unit/mL (3 mL) Insulin Pen See Rx Instructions .ROUTE .COMPLEX RF: 0 triamcinolone acetonide 0.025 % Cream 1 applic TOPICAL BID RF: 0 Novolog Flexpen U-100 Insulin 100 unit/mL (3 mL) Insulin Pen 100 unit SUBCUT DAILY RF: 0 levofloxacin in D5W 750 mg/150 mL Piggyback 750 mg IV Q24H RF: 0 Lantus Solostar U-100 Insulin 100 unit/mL (3 mL) Insulin Pen 100 unit SUBCUT BEDTIME RF: 0 TwoCal HN 0.08-2 gram-kcal/mL Liquid 0.08 - 2 ea PO BID RF: 0 morphine concentrate 10 mg/0.5 mL Syringe 20 mg PO DAILY RF: 0 isosorbide mononitrate 30 mg tablet extended release 24 hr 30 mg PO DAILY RF: 0 Discontinued Merrem 1 gram Recon Soln 1 g IV Q8H RF: 0 Bactrim 400-80 mg tablet 1 tab PO DAILY RF: 0 Discharge Orders: Discharge Order (Routine); Ordered 08/07/19 Ordered By: Harrison Neal Referrals: Pj Poon MD [Physician] - 7-10 days Discharge Diet: Diabetic Discharge Activity: Resume usual activity Activity Restrictions/Additional Instructions: Ertapenem and is ordered for an additional 10 days. Follow-up with urology, 1 week. Follow-up with primary care provider at [facility] 3 to 5 days. Discharge Attestations Time Spent in Discharge Care*: greater than 30 min Quality Metrics Clinical Quality Measures During this hospital stay, did patient experience: None Coding Level of Care Code Acute Fac Engineer for [facility] Diagnoses Sepsis A41.9 Sepsis acute organ dysfunction status: without acute organ dysfunction Sepsis type: sepsis due to unspecified organism Pyelonephritis of left kidney N12 Aida UTI B37.49 Acute anemia D64.9 Alkaline phosphatase elevation R74.8
[2019-08-07] MEDS: lipase-protease-amylase Capsule 1 EACH PO ×2 (09:32→12:26)
[2019-08-07 09:53] VITALS: BP 128/69; PULSE 83; RESP 16; TEMP 36.7; O2SAT 95
[2019-08-07] MEDS: ertapenem 1,000 MG in sodium chloride 0.9% (plus) 100 ML 200 MG IV (09:55)
--- NOTE | 2019-08-07 10:31 | PC.SOCIAL ---
Pg 2 IMM Explained to pt Pg 2 IMM. Pt verbally understands. No questions voiced. Provided pt a copy & left on pt's bedside table. Signed, dated, & timed a copy & placed in pt's chart.
[2019-08-07 10:35] VITALS: BP 129/68; PULSE 88; RESP 16; TEMP 37; O2SAT 93
[2019-08-07 11:23] LABS: Glucose Point of Care 127 mg/dL (70-110)
--- NOTE | 2019-08-07 11:57 | PC.RESP ---
Pulmonary Rehab information to patient.
[2019-08-07 15:11] VITALS: BP 129/68; PULSE 88; RESP 16; TEMP 37; O2SAT 93
== END 2019-08-07 15:12 | disposition skilled nursing facility (03) | DRG 872 ==
LOC: ER 16:48 → ICU 17:10 → MEDSURG 08-05 14:44
PROVIDERS: Family Medicine; Admitting Provider Internal Medicine; Visit Provider Internal Medicine
DX: A41.9 Sepsis, unspecified organism (principal); N12 Tubulo-interstitial nephritis, not specified as acute or chronic; N10 Acute pyelonephritis; B96.89 Other specified bacterial agents as the cause of diseases classified elsewhere; D64.9 Anemia, unspecified; Z79.82 Long term (current) use of aspirin; Z79.02 Long term (current) use of antithrombotics/antiplatelets; Z79.4 Long term (current) use of insulin; I65.23 Occlusion and stenosis of bilateral carotid arteries; E11.51 Type 2 diabetes mellitus with diabetic peripheral angiopathy without gangrene; I12.9 Hypertensive chronic kidney disease with stage 1 through stage 4 chronic kidney disease, or unspecified chronic kidney disease; E78.5 Hyperlipidemia, unspecified; N18.9 Chronic kidney disease, unspecified; E11.22 Type 2 diabetes mellitus with diabetic chronic kidney disease; Z89.612 Acquired absence of left leg above knee; Z89.611 Acquired absence of right leg above knee; Z87.891 Personal history of nicotine dependence
CPT/HCPCS: 12345; 36415; 36416; 36430; 36592; 71045; 74176; 80053; 81001; 82274; 82607; 82728; 82746; 82962; 82977; 83540; 83550; 83605; 85025; 86850; 86900; 86920; 87040; 87086; 99283; J0637; J0743; J1335; J2543; J7030; J7040; J7050; P9016